=== PATIENT | male | born 1945 | race Caucasian/White ===

== ENCOUNTER 2016-10-25 18:11 | Inpatient (IN) | payer MEDICARE, BC ==
[~2016-10-25] VITALS: Ht 172.7 cm; Wt 110.2 kg
[2016-10-25 18:17] VITALS: BP 102/64; PULSE 99; RESP 24; TEMP 97.7; O2SAT 89
--- NOTE | 2016-10-25 18:25 | PD ---
Physical Exam Time Seen by Provider: 18:21 Narrative PT PRESENT FROM DR MADISON WITH ORDER FOR EVALUATION. HE HAS BEEN HAVING SOB AND WORSENING LOWER EXTREMITY EDEMA OVER LAST TWO WEEKS. PAIN IS ASSOCIATED W DEEP INSPIRATION. NO FEVER OR CHILLS. NO HISTORY OF BLOOD CLOTS. PT ALSO REPORTS RUQ WHERE HE HAD A LIVER BIOPSY 10/10/2016; PATHOLOGY PENDING. HX OF CVA, STATES HE TAKES MEDICATIONS Data Data Last Documented VS Vital Signs Date Time Temp Pulse Resp B/P Pulse Ox O2 Delivery O2 Flow Rate FiO2 10/25/16 18:49 99 22 94 Room Air 10/25/16 18:17 97.7 102/64 Orders Complete Blood Count With Diff (10/25/16 18:25) Comprehensive Metabolic Panel (10/25/16 18:25) B-Type Natriuretic Peptide (10/25/16 18:25) D-Dimer (10/25/16 18:25) Act Partial Throm Time (Ptt) (10/25/16 18:25) Prothrombin Time / Inr (Pt) (10/25/16 18:25) Magnesium (Mg) (10/25/16 18:25) Ckmb (Isoenzyme) Profile (10/25/16 18:25) Troponin I (10/25/16 18:25) Urinalysis - C+S If Indicated (10/25/16 18:25) Electrocardiogram (10/25/16 18:25) Chest, Single Ap (10/25/16 18:25) Ct Abd/Pel W Iv Contrast(Rout) (10/25/16 18:59) Ct Pulmonary Angiogram (10/25/16 18:59) Sodium Chlor 0.9% 1000 Ml Inj (Ns 1000 M (10/25/16 19:15) Us Leg Venous Doppler Bilat (10/25/16 19:08) Labs Laboratory Tests Test 10/25/16 19:05 White Blood Count 8.5 TH/MM3 Red Blood Count 3.98 MIL/MM3 Hemoglobin 12.6 GM/DL Hematocrit 37.7 % Mean Corpuscular Volume 94.5 FL Mean Corpuscular Hemoglobin 31.7 PG Mean Corpuscular Hemoglobin 33.5 % Concent Red Cell Distribution Width 15.8 % Platelet Count 261 TH/MM3 Mean Platelet Volume 7.6 FL Neutrophils (%) (Auto) 74.6 % Lymphocytes (%) (Auto) 14.1 % Monocytes (%) (Auto) 9.4 % Eosinophils (%) (Auto) 1.0 % Basophils (%) (Auto) 0.9 % Neutrophils # (Auto) 6.3 TH/MM3 Lymphocytes # (Auto) 1.2 TH/MM3 Monocytes # (Auto) 0.8 TH/MM3 Eosinophils # (Auto) 0.1 TH/MM3 Basophils # (Auto) 0.1 TH/MM3 CBC Comment DIFF FINAL Differential Comment MDM Medical Record Reviewed: Yes Supervised Visit with KASIE: No Narrative Course WORK UP INITIATED IN TRIAGE Condition: Stable Dulce Will Oct 25, 2016 18:25
[2016-10-25] MEDS ORDERED: CLOP75TA PO (19:01)
[2016-10-25] MEDS ORDERED: HYDR-3516 PO (19:01)
[2016-10-25] MEDS ORDERED: ASPI81TA81 (19:01)
[2016-10-25] MEDS ORDERED: LOSA50TA PO (19:01)
[2016-10-25] MEDS ORDERED: TRAM50TA PO (19:01)
[2016-10-25] MEDS ORDERED: SIMV40TA PO (19:01)
[2016-10-25] MEDS ORDERED: DIPH25CA PO (19:01)
[2016-10-25] MEDS ORDERED: TRAZ50TA12 PO (19:01)
--- NOTE | 2016-10-25 19:12 | PD ---
HPI Chief Complaint: Respiratory Symptoms Time Seen by Provider: 18:49 Travel History International Travel<30 days: No Contact w/Intl Traveler<30days: No Traveled to known affect area: No History of Present Illness HPI 70-year-old male complains of shortness of breath, lower extremity swelling, right upper quadrant abdominal pain and right low rib cage pain. Patient had liver biopsy October 10, 2015. Patient started having increasing shortness of breath, right upper quadrant abdominal pain and low extremity swelling since then. Patient states that the pain is sharp stabbing pain localized to right low rib cage right upper quadrant of the abdomen with radiation to right flank area. Patient denies any fever chills. Patient denies any coughing congestion. Patient denies any history of DVT or PE. Patient denies history diabetes or dyslipidemia. Patient is a nonsmoker. Patient has history hypertension. Patient states that he has poor appetite recently. Patient denies any nausea vomiting diarrhea. Patient states that he has poor appetite and some losing weight since July 2016. Patient was seen by personal physician in September and has CT scan abdomen pelvis as outpatient. CT scan shows a small mass in the liver. Patient with scheduled for liver biopsy October 10, 2015. Patient was referred to Dr. Pruitt, oncologist. Patient saw Dr. Pruitt for the first appointment today. Patient was referred to ED for evaluation. Patient has history of hypertension, status post CVA. Patient is on aspirin 81 mg daily and Plavix 75 mg daily. PFSH Past Medical History Cerebrovascular Accident: Yes Hypertension: Yes Tetanus Vaccination: Unknown Influenza Vaccination: Yes Past Surgical History Appendectomy: Yes Family History Family Myocardial Infarction: Yes Social History Alcohol Use: No Tobacco Use: Yes Substance Use: No Allergies-Medications (Allergen,Severity, Reaction): Coded Allergies: No Known Allergies (Unverified , 10/25/16) Reported Meds & Prescriptions Reported Meds & Active Scripts Active Reported Diphenhydramine (Diphenhydramine HCl) 25 Mg Cap 25 Mg PO HS PRN Clopidogrel (Clopidogrel Bisulfate) 75 Mg Tab 75 Mg PO DAILY Aspir-81 (Aspirin) 81 Mg Tabdr Hydrocodone-Acetaminophen 5-325 mg Tab 1 Tab PO Q8HR PRN Trazodone (Trazodone HCl) 50 Mg Tab 50 Mg PO HS Tramadol (Tramadol HCl) 50 Mg Tab 50 Mg PO Q4H PRN Simvastatin 40 Mg Tab 40 Mg PO HS Losartan (Losartan Potassium) 50 Mg Tab 50 Mg PO DAILY Review of Systems General / Constitutional: No: Fever Eyes: No: Visual changes HENT: No: Headaches Cardiovascular: No: Chest Pain or Discomfort Respiratory: Positive: Shortness of Breath Gastrointestinal: Positive: Abdominal Pain Genitourinary: No: Dysuria Musculoskeletal: Positive: Edema, No: Pain Skin: No Rash Neurologic: No: Weakness Psychiatric: No: Depression Endocrine: No: Polydipsia Hematologic/Lymphatic: No: Easy Bruising Physical Exam Narrative GENERAL: Well-nourished, well-developed patient. SKIN: Warm and dry. Jaundiced HEAD: Normocephalic. EYES: Mild bilateral scleral icterus. No injection or drainage. NECK: Supple, trachea midline. No JVD or lymphadenopathy. CARDIOVASCULAR: Regular rate and rhythm without murmurs, gallops, or rubs. RESPIRATORY: Breath sounds equal bilaterally. No accessory muscle use. GASTROINTESTINAL: Abdomen soft, nondistended. Patient has moderate tenderness on palpation right upper quadrant and right flank area. No rebound tenderness. No mass. MUSCULOSKELETAL: +2 pitting edema bilaterally lower extremity. No tenderness on the calf area. No redness no heat. BACK: Nontender without obvious deformity. No CVA tenderness. Neurologic exam normal. Data Data Last Documented VS Vital Signs Date Time Temp Pulse Resp B/P Pulse Ox O2 Delivery O2 Flow Rate FiO2 10/25/16 21:21 96 18 101/65 Room Air 10/25/16 19:54 95 10/25/16 18:17 97.7 Orders Complete Blood Count With Diff (10/25/16 18:25) Comprehensive Metabolic Panel (10/25/16 18:25) B-Type Natriuretic Peptide (10/25/16 18:25) D-Dimer (10/25/16 18:25) Act Partial Throm Time (Ptt) (10/25/16 18:25) Prothrombin Time / Inr (Pt) (10/25/16 18:25) Magnesium (Mg) (10/25/16 18:25) Ckmb (Isoenzyme) Profile (10/25/16 18:25) Troponin I (10/25/16 18:25) Urinalysis - C+S If Indicated (10/25/16 18:25) Electrocardiogram (10/25/16 18:25) Chest, Single Ap (10/25/16 18:25) Ct Abd/Pel W Iv Contrast(Rout) (10/25/16 18:59) Ct Pulmonary Angiogram (10/25/16 18:59) Sodium Chlor 0.9% 1000 Ml Inj (Ns 1000 M (10/25/16 19:15) Us Leg Venous Doppler Bilat (10/25/16 19:08) CKMB (10/25/16 19:05) CKMB% (10/25/16 19:05) Iodixanol 320 Inj (Rad Ct) (Visipaque 32 (10/25/16 20:39) Admit To Inpatient (10/25/16 ) Vital Signs (Adult) Q4H (10/25/16 21:54) Activity Oob With Assistance (10/25/16 21:54) ^ [employer]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 .CONTINUOUS (10/25/16 21:54) Diet Npo (10/26/16 Breakfast) Sodium Chloride 0.9% Flush (Ns Flush) (10/25/16 22:00) Sodium Chloride 0.9% Flush (Ns Flush) (10/26/16 09:00) Basic Metabolic Panel (Bmp) (10/26/16 06:00) Complete Blood Count With Diff (10/26/16 06:00) Scd Bilateral/Knee High [place].BID (10/25/16 21:54) Admit Order (Ed Use Only) (10/25/16 21:56) Naloxone Inj (Narcan Inj) (10/25/16 22:00) Inpatient Certification (10/25/16 ) Hgb & Hct (10/25/16 23:00) Hgb & Hct (10/26/16 03:00) Hgb & Hct (10/26/16 07:00) Hgb & Hct (10/26/16 11:00) Consult General Surgery (10/25/16 ) Sodium Chlor 0.9% 1000 Ml Inj (Ns 1000 M (10/25/16 22:00) Labs Laboratory Tests Test 10/25/16 19:05 White Blood Count 8.5 TH/MM3 Red Blood Count 3.98 MIL/MM3 Hemoglobin 12.6 GM/DL Hematocrit 37.7 % Mean Corpuscular Volume 94.5 FL Mean Corpuscular Hemoglobin 31.7 PG Mean Corpuscular Hemoglobin 33.5 % Concent Red Cell Distribution Width 15.8 % Platelet Count 261 TH/MM3 Mean Platelet Volume 7.6 FL Neutrophils (%) (Auto) 74.6 % Lymphocytes (%) (Auto) 14.1 % Monocytes (%) (Auto) 9.4 % Eosinophils (%) (Auto) 1.0 % Basophils (%) (Auto) 0.9 % Neutrophils # (Auto) 6.3 TH/MM3 Lymphocytes # (Auto) 1.2 TH/MM3 Monocytes # (Auto) 0.8 TH/MM3 Eosinophils # (Auto) 0.1 TH/MM3 Basophils # (Auto) 0.1 TH/MM3 CBC Comment DIFF FINAL Differential Comment Prothrombin Time 14.7 SEC Prothromb Time International 1.3 RATIO Ratio Activated Partial 26.5 SEC Thromboplast Time D-Dimer Quantitative (PE/DVT) 20.92 MG/L FEU Sodium Level 133 MEQ/L Potassium Level 4.4 MEQ/L Chloride Level 96 MEQ/L Carbon Dioxide Level 24.1 MEQ/L Anion Gap 13 MEQ/L Blood Urea Nitrogen 24 MG/DL Creatinine 1.99 MG/DL Estimat Glomerular Filtration 33 ML/MIN Rate Random Glucose 85 MG/DL Calcium Level 8.2 MG/DL Magnesium Level 2.0 MG/DL Total Bilirubin 2.1 MG/DL Aspartate Amino Transf 196 U/L (AST/SGOT) Alanine Aminotransferase 38 U/L (ALT/SGPT) Alkaline Phosphatase 332 U/L Total Creatine Kinase 112 U/L Creatine Kinase MB 0.8 NG/ML Troponin I LESS THAN 0.02 NG/ML B-Type Natriuretic Peptide 406 PG/ML Total Protein 6.1 GM/DL Albumin 2.7 GM/DL [facility] Medical Decision Making Medical Screen Exam Complete: Yes Emergency Medical Condition: Yes Interpretation(s) Last Impressions Lower Extremity Ultrasound 10/25/161907 Signed Impressions: Service Date/Time: Tuesday, October 25, 2016 19:20 - CONCLUSION: 1. No DVT in either lower extremity. 2. Small Eastman's cyst on the left. Nico Maya MD Chest X-Ray 10/25/161824 Signed Impressions: Service Date/Time: Tuesday, October 25, 2016 19:22 - CONCLUSION: Diminished lung volumes with clear lungs. Nico Maya MD 4 PM. CBC within normal limit. Sodium 133. BUN 24. Creatinine 1.99. GFR 33. Calcium 8.2. Total bili 2.1. AST 196. Apply phosphatase 332. Cardiac enzymes are normal. BNP 406. Albumin 2.7. INR 1.3. D-dimer 20.92. 21:17 PM. Last Impressions Lower Extremity Ultrasound 10/25/161907 Signed Impressions: Service Date/Time: Tuesday, October 25, 2016 19:20 - CONCLUSION: 1. No DVT in either lower extremity. 2. Small Eastman's cyst on the left. Nico Maya MD CT Angiography 10/25/161858 Signed Impressions: Service Date/Time: Sunday, October 25, 2016 20:35 - CONCLUSION: 1. No evidence for pulmonary embolism. 2. Minimal bibasilar patchy densities likely atelectasis. 3. Small right pleural effusion. 4. Enlarged heterogeneous liver containing multiple areas of low attenuation, concerning for internal hemorrhage/contusion. Nico Maya MD Abdomen/Pelvis CT 10/25/161858 Signed Impressions: Service Date/Time: Tuesday, October 25, 2016 20:35 - CONCLUSION: 1. Surgeon used liver containing multiple areas of low attenuation. Internal hemorrhage cannot be excluded given patient has had a recent liver biopsy. 2. Minimal fluid in the pelvis but no significant hemoperitoneum. 3. Diverticulosis without diverticulitis 4. Minimal bibasilar densities likely atelectasis. Small right pleural effusion. Nico Maya MD Chest X-Ray 10/25/161824 Signed Impressions: Service Date/Time: Tuesday, October 25, 2016 19:22 - CONCLUSION: Diminished lung volumes with clear lungs. Nico Maya MD Differential Diagnosis Differential diagnosis including PE, pneumothorax, hematoma, cholecystitis, cholangitis, colitis, nephrolithiasis, pyelonephritis, dependent edema, DVT, lymphedema. Narrative Course 70-year-old male with shortness of breath, right upper quadrant abdominal pain, bilateral lower extremity edema. Status post liver biopsy 2 weeks ago. I spoke with Dr. Trimble, rn or lpn strategic communications specialist. Advised angiogram to confirm bleeding. I spoke with interventional radiologist, advised repeat CT in the morning with IV contrast of abdomen pelvis and possible 3 phase liver scan. Diagnosis Primary Impression: Liver hemorrhage Additional Impression: Dependent edema Admitting Information Admitting Physician Requests: Admit Condition: Stable Darryl,Hung MD Oct 25, 2016 19:12
[2016-10-25] MEDS ORDERED: SODIUM CHLOR 0.9% 1000 ML INJ 1,000 ML IV ONE ×2 (19:15→22:00)
[2016-10-25 19:35] LABS: AUTOMATED NEUTROPHIL # 6.3 TH/MM3 (1.8-7.7); BASOPHIL # 0.1 TH/MM3 (0-0.2); BASOPHIL % 0.9 % (0.0-2.0); EOSINOPHIL # 0.1 TH/MM3 (0-0.4); HEMATOCRIT 37.7 % (39.0-51.0); HEMO FLAGS DIFF FINAL; LYMPH % 14.1 % (9.0-44.0); LYMPHOCYTE # 1.2 TH/MM3 (1.0-4.8); MEAN CELL VOLUME 94.5 FL (80.0-100.0); MEAN CORPUSCULAR HEMOGLOBIN 31.7 PG (27.0-34.0); MEAN CORPUSCULAR HGB CONC 33.5 % (32.0-36.0); MONO % 9.4 % (0.0-8.0); NEUT % 74.6 % (16.0-70.0); PLATELET COUNT 261 TH/MM3 (150-450); RED BLOOD COUNT 3.98 MIL/MM3 (4.50-5.90); RED CELL DISTRIBUTION WIDTH 15.8 % (11.6-17.2); WHITE BLOOD COUNT 8.5 TH/MM3 (4.0-11.0)
--- NOTE | 2016-10-25 19:35 | RADRPT ---
EXAM DATE/TIME: 10/25/2016 19:22 [facility] COMPARISON: No previous studies available for comparison. INDICATIONS : Short of breath for several months. MEDICAL HISTORY : Hypertension. SURGICAL HISTORY : None. ENCOUNTER: Initial ACUITY: 2 months PAIN SCORE: 2/10 LOCATION: Bilateral chest FINDINGS: A single view of the chest demonstrates diminished lung glands without evidence of mass, infiltrate o r effusion. The cardiomediastinal contours are unremarkable. Osseous structures are intact. CONCLUSION: Diminished lung volumes with clear lungs. Nico Maya MD on October 25, 2016 at 19:33 Board Certified Radiologist. This report was verified electronically.
[2016-10-25 19:53] LABS: ALT (GPT) 38 U/L (12-78); ANION GAP 13 MEQ/L (5-15); AST (GOT) 196 U/L (15-37); BICARBONATE 24.1 MEQ/L (21.0-32.0); BLOOD UREA NITROGEN 24 MG/DL (7-18); CHLORIDE 96 MEQ/L (98-107); GLOMERULAR FILTRATION RATE 33 ML/MIN (>89); POTASSIUM 4.4 MEQ/L (3.5-5.1); SODIUM (NA) 133 MEQ/L (136-145)
[2016-10-25 19:54] VITALS: BP 94/57; PULSE 89; RESP 18; O2SAT 95
--- NOTE | 2016-10-25 20:05 | RADRPT ---
EXAM DATE/TIME: 10/25/2016 19:20 [facility] COMPARISON: No previous studies available for comparison. INDICATIONS : Bilateral lower extremity edema. MEDICAL HISTORY : Hypertension. CVA. SURGICAL HISTORY : Appendectomy. ENCOUNTER: Initial ACUITY: 2 weeks PAIN SCORE: 0/10 LOCATION: Bilateral leg. TECHNIQUE: Venous ultrasound of the left and right leg was performed from the inguinal ligament to the proximal calf. Real-time, color Doppler and spectral tracing, compression and augmentation techniques were us ed. FINDINGS: RIGHT LEG: There is normal compressibility of the deep venous system from the inguinal region to the proximal ca lf. No echogenic clot is seen in the lumen of the common femoral, femoral, popliteal, and posterior tibial veins. There is a normal response of the venous system to proximal and distal augmentation an d respiration. LEFT LEG: There is normal compressibility of the deep venous system from the inguinal region to the proximal ca lf. No echogenic clot is seen in the lumen of the common femoral, femoral, popliteal, and posterior tibial veins. There is a normal response of the venous system to proximal and distal augmentation an d respiration. Small cystic structure measures 14 x 4 x 12 mm in the popliteal fossa. CONCLUSION: 1. No DVT in either lower extremity. 2. Small Eastman's cyst on the left. Nico Maya MD on October 25, 2016 at 20:02 Board Certified Radiologist. This report was verified electronically.
[2016-10-25 20:06] LABS: APTT (PATIENT) 26.5 SEC (24.3-30.1); INTERNATIONAL NORMALIZED RATIO 1.3 RATIO; PROTHROMBIN TIME - PATIENT 14.7 SEC (9.8-11.6)
[2016-10-25 20:12] LABS: ALKALINE PHOSPHATASE 332 U/L (45-117); CREATINE KINASE 112 U/L (39-308); TOTAL BILIRUBIN ADULT 2.1 MG/DL (0.2-1.0)
[2016-10-25 20:24] LABS: CKMB 0.8 NG/ML (0.5-3.6)
[2016-10-25] MEDS ORDERED: IODIXANOL 320 MG/ML 10 ML VIAL (for Rad CT) IV ONE (20:39)
--- NOTE | 2016-10-25 20:55 | RADRPT ---
EXAM DATE/TIME: 10/25/2016 20:35 [facility] COMPARISON: No previous studies available for comparison. INDICATIONS : Shortness of breath for and RUQ abdominal pain since liver biopsy 2 weeks ago. IV CONTRAST: 50 cc Visipaque (iodixanol) IV ; Cumulative dose for multiple exams. RADIATION DOSE: 23.22 CTDIvol (mGy) MEDICAL HISTORY : Hypertension. SURGICAL HISTORY : Appendectomy. ENCOUNTER: Initial ACUITY: 2 weeks PAIN SCALE: 4/10 LOCATION: chest TECHNIQUE: Volumetric scanning of the chest was performed using a pulmonary embolism protocol MIP images were re constructed. Using automated exposure control and adjustment of the mA and/or kV according to patien t size, radiation dose was kept as low as reasonably achievable to obtain optimal diagnostic quality images. FINDINGS: PULMONARY ARTERIES: No filling defects are seen in the pulmonary arteries through the segmental level. LUNGS: Minimal patchy densities in the lower lobes.. No concerning pulmonary nodule is visualized. PLEURAE: Small right pleural effusion. MEDIASTINUM: There is good visualization of the great vessels of the middle mediastinum. No evidence of mediastin al or hilar adenopathy/mass. MUSCULOSKELETAL: Within normal limits for patient age. MISCELLANEOUS: The visualized upper abdominal organs demonstrate heterogeneous liver containing multiple areas of lo w density.. CONCLUSION: 1. No evidence for pulmonary embolism. 2. Minimal bibasilar patchy densities likely atelectasis. 3. Small right pleural effusion. 4. Enlarged heterogeneous liver containing multiple areas of low attenuation, concerning for internal hemorrhage/contusion. Nico Maya MD on October 25, 2016 at 20:52 Board Certified Radiologist. This report was verified electronically.
--- NOTE | 2016-10-25 21:02 | RADRPT ---
EXAM DATE/TIME: 10/25/2016 20:35 [facility] COMPARISON: No previous studies available for comparison. INDICATIONS : Shortness of breath for and RUQ abdominal pain since liver biopsy 2 weeks ago. IV CONTRAST: 50 cc Visipaque (iodixanol) IV ; Cumulative dose for multiple exams. ORAL CONTRAST: No oral contrast ingested. RADIATION DOSE: 21.07 CTDIvol (mGy) MEDICAL HISTORY : Hypertension. SURGICAL HISTORY : Appendectomy. ENCOUNTER: Initial ACUITY: 2 weeks PAIN SCALE: 6/10 LOCATION: Right upper quadrant Abdomen/pelvis TECHNIQUE: Volumetric scanning of the abdomen and pelvis was performed. Using automated exposure control and ad justment of the mA and/or kV according to patient size, radiation dose was kept as low as reasonably achievable to obtain optimal diagnostic quality images. FINDINGS: LOWER LUNGS: Minimal bibasilar densities and small right pleural effusion. LIVER: Heterogeneous liver containing multiple areas of low density.. There is no dilation of the biliary t ree. No calcified gallstones. SPLEEN: Normal size without lesion. PANCREAS: Within normal limits. KIDNEYS: Normal in size and shape. There is no mass, stone or hydronephrosis. ADRENAL GLANDS: Within normal limits. VASCULAR: There is no aortic aneurysm. BOWEL/MESENTERY: Diverticulosis without diverticulitis. There is no free intraperitoneal air or fluid. ABDOMINAL WALL: Within normal limits. RETROPERITONEUM: There is no lymphadenopathy. BLADDER: No wall thickening or mass. REPRODUCTIVE: Minimal fluid in the pelvis INGUINAL: There is no lymphadenopathy or hernia. MUSCULOSKELETAL: Noé changes lumbar spine. CONCLUSION: 1. Surgeon used liver containing multiple areas of low attenuation. Internal hemorrhage cannot be exc luded given patient has had a recent liver biopsy. 2. Minimal fluid in the pelvis but no significant hemoperitoneum. 3. Diverticulosis without diverticulitis 4. Minimal bibasilar densities likely atelectasis. Small right pleural effusion. Nico Maya MD on October 25, 2016 at 20:58 Board Certified Radiologist. This report was verified electronically.
[2016-10-25 21:21] VITALS: BP 101/65; PULSE 96; RESP 18
[2016-10-25] MEDS ORDERED: SODIUM CHLORIDE 0.9% FLUSH 5 ML FLUSH FLUSH PRN (22:00)
[2016-10-25] MEDS ORDERED: NALOXONE HCL 0.4 MG/ML AMP IV PRN (22:00)
[2016-10-25 22:23] VITALS: BP 93/59; PULSE 97; RESP 18; O2SAT 95
[2016-10-25 23:17] LABS: HEMATOCRIT 33.6 % (39.0-51.0); REVIEW FLAG FINAL
--- NOTE | 2016-10-25 23:37 | HHI.HP ---
[facility] Service [facility] Primary Care Physician Non-Staff Admission Diagnosis liver hemorrhage. Dependent edema. Diagnoses: Chief Complaint: Abdominal pain Travel History International Travel<30 Days: No Contact w/Intl Traveler <30 Da: No Traveled to Known Affected Are: No History of Present Illness History from patient, ER physician condition, and review of medical records. Patient reported that he has had liver biopsy done on October 10, 2016. He stated since then, he was having this right upper quadrant abdominal pain. He denies any nausea or vomiting. Denies any diarrhea or constipation. Denies seeing blood in his stool or in his urine. Denies any fever. Denies any increase abdominal girth. He states that his abdomen always having quite bake. Patient reports of bilateral lower extremity edema. However he also states that this edema has been there for about a year or so at least. Patient then went to his oncologist for appointments and when he was complaining about this abdominal pain, oncologist had sent him to the hospital for further evaluation. In the emergency room, patient's imaging studies reviewed possible hemorrhage within the liver capsule. Patient however remains hemodynamically stable. His hemoglobin hematocrit is also stable. Review of Systems Constitutional: DENIES: Fatigue, Fever, Weight gain, Weight loss, Chills, Dizziness Respiratory: DENIES: Apneas, Cough, Wheezing, Hemoptysis, Sputum production, Shortness of breath Cardiovascular: COMPLAINS OF: Dyspnea on Exertion, Lower Extremity Edema, DENIES: Chest pain, Palpitations, Syncope, PND Gastrointestinal: COMPLAINS OF: Abdominal pain, Nausea, DENIES: Black stools, Bloody stools, Constipation, Diarrhea, Vomiting Genitourinary: COMPLAINS OF: Nocturia, DENIES: Urinary frequency, Urinary incontinence, Urgency, Hematuria, Dysuria Past Family Social History Past Medical History Liver cancer Hypertension Chronic bilateral lower extremity edema Past Surgical History Liver biopsyon September 24, 2016, and October 10, 2016 Appendectomy Reported Medications Patient's medications listed in EMRreviewed. Allergies: Coded Allergies: No Known Allergies (Unverified , 10/25/16) Family History Denies family history of any medical conditions. Social History Denies smoking/alcohol abuse/drug abuse. Physical Exam Vital Signs Vital Signs Date Time Temp Pulse Resp B/P Pulse Ox O2 Delivery O2 Flow Rate FiO2 10/25/16 22:23 97 18 93/59 95 Room Air 10/25/16 21:21 96 18 101/65 Room Air 10/25/16 19:54 89 18 94/57 95 Room Air 10/25/16 18:49 99 22 94 Room Air 10/25/16 18:17 97.7 99 24 102/64 89 Room Air Physical Exam GENERAL: This is a well-nourished, well-developed patient, in no apparent distress. SKIN: No rashes, ecchymoses or lesions. Cool and dry. HEAD: Atraumatic. Normocephalic. No temporal or scalp tenderness. EYES: No scleral icterus. No injection or drainage. ENT: Nose without bleeding, purulent drainage or septal hematoma. Airway patent. NECK: Trachea midline. No JVD or lymphadenopathy. Supple, nontender, no meningeal signs. CARDIOVASCULAR: Regular rate and rhythm without murmurs, gallops, or rubs. RESPIRATORY: Clear to auscultation. Breath sounds equal bilaterally. No wheezes , rales, or rhonchi. GASTROINTESTINAL: Abdomen soft, tenderness at the right upper quadrant, nondistended. No guarding. MUSCULOSKELETAL: Extremities without clubbing, cyanosis, or edema. No calf tenderness. NEUROLOGICAL: Awake and alert Motor and sensory grossly within normal limits. Normal speech. Laboratory Laboratory Tests Test 10/25/16 10/25/16 19:05 23:05 White Blood Count 8.5 Red Blood Count 3.98 Hemoglobin 12.6 11.4 Hematocrit 37.7 33.6 Mean Corpuscular Volume 94.5 Mean Corpuscular Hemoglobin 31.7 Mean Corpuscular Hemoglobin 33.5 Concent Red Cell Distribution Width 15.8 Platelet Count 261 Mean Platelet Volume 7.6 Neutrophils (%) (Auto) 74.6 Lymphocytes (%) (Auto) 14.1 Monocytes (%) (Auto) 9.4 Eosinophils (%) (Auto) 1.0 Basophils (%) (Auto) 0.9 Neutrophils # (Auto) 6.3 Lymphocytes # (Auto) 1.2 Monocytes # (Auto) 0.8 Eosinophils # (Auto) 0.1 Basophils # (Auto) 0.1 CBC Comment DIFF FINAL Differential Comment Prothrombin Time 14.7 Prothromb Time International 1.3 Ratio Activated Partial 26.5 Thromboplast Time D-Dimer Quantitative (PE/DVT) 20.92 Sodium Level 133 Potassium Level 4.4 Chloride Level 96 Carbon Dioxide Level 24.1 Anion Gap 13 Blood Urea Nitrogen 24 Creatinine 1.99 Estimat Glomerular Filtration 33 Rate Random Glucose 85 Calcium Level 8.2 Magnesium Level 2.0 Total Bilirubin 2.1 Aspartate Amino Transf 196 (AST/SGOT) Alanine Aminotransferase 38 (ALT/SGPT) Alkaline Phosphatase 332 Total Creatine Kinase 112 Creatine Kinase MB 0.8 Troponin I LESS THAN 0.02 B-Type Natriuretic Peptide 406 Total Protein 6.1 Albumin 2.7 Result Diagram: 10/25/16230410/25/161904 Imaging Last 48 hours Impressions Lower Extremity Ultrasound 10/25/161907 Signed Impressions: Service Date/Time: Tuesday, October 25, 2016 19:20 - CONCLUSION: 1. No DVT in either lower extremity. 2. Small Eastman's cyst on the left. Nioc Maya MD CT Angiography 10/25/161858 Signed Impressions: Service Date/Time: Tuesday, October 25, 2016 20:35 - CONCLUSION: 1. No evidence for pulmonary embolism. 2. Minimal bibasilar patchy densities likely atelectasis. 3. Small right pleural effusion. 4. Enlarged heterogeneous liver containing multiple areas of low attenuation, concerning for internal hemorrhage/contusion. Nico Maya MD Abdomen/Pelvis CT 10/25/161858 Signed Impressions: Service Date/Time: Tuesday, October 25, 2016 20:35 - CONCLUSION: 1. Surgeon used liver containing multiple areas of low attenuation. Internal hemorrhage cannot be excluded given patient has had a recent liver biopsy. 2. Minimal fluid in the pelvis but no significant hemoperitoneum. 3. Diverticulosis without diverticulitis 4. Minimal bibasilar densities likely atelectasis. Small right pleural effusion. Nico Maya MD Chest X-Ray 10/25/161824 Signed Impressions: Service Date/Time: Tuesday, October 25, 2016 19:22 - CONCLUSION: Diminished lung volumes with clear lungs. Nico Maya MD Assessment and Plan Problem List: (1) Liver hemorrhage ICD Code: K76.89 Status: Acute (2) Dependent edema ICD Code: R60.9 Status: Acute Assessment and Plan Impression: Abdominal pain status post liver biopsy Possible intracapsular liver hemorrhage Bilateral lower extremity swelling/edemachronic. DVT study negative. Liver cancer Hypertension Chronic bilateral lower extremity edema Plan: Patient's CT abdomen and pelvis reveals questionable hemorrhage within the liver. His case was discussed with interventional radiologist on-call by ER physician. Since patient received IV contrast for this CT abdomen, interventional radiologist has advised for possible liver scans in the morning and only if this shows something then to pursue with angiogram to minimize contrast-induced nephropathy. Patient is also hemodynamically stable. The pain is well controlled. His case was also discussed with general surgeon insurance verification specialist by ER physician. Advised to monitor patient in ICU with serial hemoglobin hematocrit. Hold blood thinners. Hemoglobin hematocrit every 4 hours. Pain control. Hold antihypertensives. Nothing by mouth in case patient needs emergent embolization. DVT prophylaxiswith SCD. Discussed Condition With Patient, ER physician, patient's nurse Physician Certification 2 Midnight Certification Type: Admission for Inpatient Services Order for Inpatient Services The services are ordered in accordance with Medicare regulations or non- Medicare payer requirements, as applicable. In the case of services not specified as inpatient-only, they are appropriately provided as inpatient services in accordance with the 2-midnight benchmark. Estimated LOS (days): 2 days is the estimated time the patient will need to remain in the hospital, assuming treatment plan goals are met and no additional complications. Post-Hospital Plan: Home Alicia Everett MD Oct 25, 2016 23:37
[2016-10-26] VITALS (13 sets, daily range): BP systolic 93–114; BP diastolic 50–59; PULSE 71–93; RESP 16–20; TEMP 97.7–98.3; O2SAT 92–94
[2016-10-26 03:32] LABS: HEMATOCRIT 35.1 % (39.0-51.0); REVIEW FLAG FINAL
[2016-10-26 03:50] LABS: BICARBONATE 23.9 MEQ/L (21.0-32.0); POTASSIUM 4.7 MEQ/L (3.5-5.1)
[2016-10-26] MEDS ORDERED: CHLORHEXIDINE GLUCONATE 2 % 1 PACK (2 CLOTHS)(extra cloths) TOP PRN (04:15)
[2016-10-26 07:21] LABS: AUTOMATED NEUTROPHIL # 5.9 TH/MM3 (1.8-7.7); BASOPHIL % 0.6 % (0.0-2.0); EOSINOPHIL # 0.1 TH/MM3 (0-0.4); EOSINOPHIL % 0.9 % (0.0-4.0); HEMATOCRIT 34.7 % (39.0-51.0); HEMO FLAGS DIFF FINAL; LYMPH % 13.4 % (9.0-44.0); MEAN CELL VOLUME 94.1 FL (80.0-100.0); MEAN CORPUSCULAR HEMOGLOBIN 31.9 PG (27.0-34.0); MEAN CORPUSCULAR HGB CONC 33.9 % (32.0-36.0); MONO % 9.3 % (0.0-8.0); NEUT % 75.8 % (16.0-70.0); PLATELET COUNT 208 TH/MM3 (150-450); RED BLOOD COUNT 3.69 MIL/MM3 (4.50-5.90); RED CELL DISTRIBUTION WIDTH 15.9 % (11.6-17.2); WHITE BLOOD COUNT 7.8 TH/MM3 (4.0-11.0)
--- NOTE | 2016-10-26 09:41 | HHI.PR ---
Subjective Remarks Follow-up possible liver Hemorrhage 10/26/16-patient seen and examined; reports some improvement of right upper quadrant pain, no bleeding reported. Case discussed with Dr. Anguiano, general surgeon. Patient currently nothing by mouth Objective Vitals Vital Signs Date Time Temp Pulse Resp B/P Pulse Ox O2 Delivery O2 Flow Rate FiO2 10/26/16 06:00 86 10/26/16 04:00 86 10/26/16 03:13 98.0 93 20 112/55 92 10/26/16 03:00 93 10/26/16 02:13 88 16 105/57 94 Room Air 10/25/16 22:23 97 18 93/59 95 Room Air 10/25/16 21:21 96 18 101/65 Room Air 10/25/16 19:54 89 18 94/57 95 Room Air 10/25/16 18:49 99 22 94 Room Air 10/25/16 18:17 97.7 99 24 102/64 89 Room Air I/O 10/25/16 10/25/16 10/25/16 10/26/16 10/26/16 10/26/16 07:00 15:00 23:00 07:00 15:00 23:00 Intake Total 0 ml Output Total 0 ml Balance 0 ml Intake Oral 0 ml Output Urine Total 0 ml Stool Total 0 ml Result Diagram: 10/26/16 0647 10/26/16 0322 Imaging Last Impressions Lower Extremity Ultrasound 10/25/161907 Signed Impressions: Service Date/Time: Tuesday, October 25, 2016 19:20 - CONCLUSION: 1. No DVT in either lower extremity. 2. Small Eastman's cyst on the left. Nico Maya MD CT Angiography 10/25/161858 Signed Impressions: Service Date/Time: Tuesday, October 25, 2016 20:35 - CONCLUSION: 1. No evidence for pulmonary embolism. 2. Minimal bibasilar patchy densities likely atelectasis. 3. Small right pleural effusion. 4. Enlarged heterogeneous liver containing multiple areas of low attenuation, concerning for internal hemorrhage/contusion. Nico Maya MD Abdomen/Pelvis CT 10/25/161858 Signed Impressions: Service Date/Time: Tuesday, October 25, 2016 20:35 - CONCLUSION: 1. Surgeon used liver containing multiple areas of low attenuation. Internal hemorrhage cannot be excluded given patient has had a recent liver biopsy. 2. Minimal fluid in the pelvis but no significant hemoperitoneum. 3. Diverticulosis without diverticulitis 4. Minimal bibasilar densities likely atelectasis. Small right pleural effusion. Nico Maya MD Chest X-Ray 10/25/16 1772 Signed Impressions: Service Date/Time: Tuesday, October 25, 2016 19:22 - CONCLUSION: Diminished lung volumes with clear lungs. Nico Maya MD Objective Remarks GENERAL: NAD SKIN: Warm and dry. HEAD: Normocephalic. EYES: No scleral icterus. No injection or drainage. NECK: Supple, trachea midline. No JVD or lymphadenopathy. CARDIOVASCULAR: Regular rate and rhythm without murmurs, gallops, or rubs. RESPIRATORY: Breath sounds equal bilaterally. No accessory muscle use. GASTROINTESTINAL: Abdomen soft, mildly tender RUQ, nondistended. +BS MUSCULOSKELETAL: No cyanosis, or edema. BACK: Nontender without obvious deformity. No CVA tenderness. A/P Problem List: (1) Liver hemorrhage ICD Code: K76.89 Status: Acute (2) Dependent edema ICD Code: R60.9 Status: Acute Assessment and Plan 70 yrs old man with 1-Abdominal pain status post liver biopsy/Possible intracapsular liver hemorrhage?:CT abdomen and pelvis reveals questionable hemorrhage within the liver. Awaiting call from interventional radiology further studies. His discussed this morning with general surgeon Dr. Anguiano. Continue to monitor in ICU. H&H monitoring every 4 if stable with gentle every 12 on 10/27/16. Pain management accordingly; continue with nothing by mouth 2-Bilateral lower extremity swelling/edemachronic. DVT study negative. 3-Liver cancer 4-Hypertension: Continue to hold oral hypertensive agents DVT prophylaxiswith SCD. Nico Renee MD Oct 26, 2016 09:41
[2016-10-26] MEDS ORDERED: NALOXONE HCL 0.4 MG/ML AMP IV PRN (09:45)
[2016-10-26] MEDS ORDERED: ONDANSETRON HCL 4 MG/2 ML VIAL IV PRN (10:00)
[2016-10-26] MEDS ORDERED: RESP: ALBUTEROL 2.5 MG/IPRATROPIUM 0.5 MG NEB (PRN) NEB (10:00)
[2016-10-26] MEDS ORDERED: ACETAMINOPHEN 325 MG TAB PO PRN ×2 (10:00)
[2016-10-26] MEDS ORDERED: KETOROLAC TROMETHAMINE 30 MG/ML (IVP) VIAL IVP PRN (10:00)
--- NOTE | 2016-10-26 10:21 | RADRPT ---
EXAM DATE/TIME: 10/26/2016 09:49 [facility] COMPARISON: CT ABDOMEN & PELVIS W CONTRAST, October 25, 2016, 20:35. INDICATIONS : Follow up for possible internal hemorrhage following liver biopsy. ORAL CONTRAST: No oral contrast ingested. RADIATION DOSE: 16.95 CTDIvol (mGy) MEDICAL HISTORY : Stroke. Hypertension. SURGICAL HISTORY : Appendectomy. ENCOUNTER: Initial ACUITY: 1 day PAIN SCALE: 5/10 LOCATION: Right upper quadrant TECHNIQUE: Volumetric scanning of the abdomen and pelvis was performed. Using automated exposure control and ad justment of the mA and/or kV according to patient size, radiation dose was kept as low as reasonably achievable to obtain optimal diagnostic quality images. FINDINGS: LOWER LUNGS: Right lower lung atelectasis with a tiny right effusion. Left lung bases clear. No significant change s. LIVER: The liver remains enlarged with abnormal scattered areas of decreased density throughout the entire l iver. This is unchanged compared to the prior study. No subcapsular hematoma is demonstrated. No evid ence of any significant free fluid is seen in the right paracolic gutter. No dilated biliary ducts. SPLEEN: Normal size without lesion. PANCREAS: Within normal limits. KIDNEYS: Normal in size and shape. There is no mass, stone, or hydronephrosis. ADRENAL GLANDS: Within normal limits. VASCULAR: There is no aortic aneurysm. Atherosclerotic changes. BOWEL/MESENTERY: The stomach, small bowel, and colon demonstrate no acute abnormality. There is no free intraperitone al air. There is a trace of fluid in the pelvis. There is diverticulosis of the sigmoid colon. No inf lammatory changes. ABDOMINAL WALL: Within normal limits. RETROPERITONEUM: There is no lymphadenopathy. BLADDER: No wall thickening or mass. There is contrast in the urinary bladder. REPRODUCTIVE: Within normal limits. INGUINAL: There is no lymphadenopathy or hernia. MUSCULOSKELETAL: Diffuse primary degenerative changes without significant change compared to the prior study. CONCLUSION: 1. Stable CT scan of the abdomen and pelvis compared to the prior examination. There is no evidence o f a subcapsular hematoma or significant free fluid in the right paracolic gutter. There is a trace of fluid in the pelvis which is about the same or mildly improved compared to the prior study. 2. Diverticulosis of the sigmoid colon without inflammatory changes. 3. Right lower lung atelectasis without significant change. Willi Terry MD on October 26, 2016 at 10:09 Board Certified Radiologist. This report was verified electronically.
--- NOTE | 2016-10-26 18:31 | MB ---
cc: JOLENE BENJAMIN M.D. DATE OF CONSULTATION 10/25/2016 REASON FOR CONSULTATION Liver hemorrhage versus mass. HISTORY OF PRESENT ILLNESS The patient is a 70-year-old male who was seen at [facility] and underwent biopsy of the liver on October 10. The patient reports that since that time he has had right upper quadrant and subcostal pain. He denies any nausea or vomiting. He reports having about a 20-30 pound weight loss over the last 2-3 months. He denies any fever, nausea, vomiting or change in bowel habits. PAST MEDICAL HISTORY Peripheral edema in both lower extremities. REVIEW OF SYSTEMS The patient reports weight loss. He denies any cough. RESPIRATORY: No hemoptysis or sputum production CARDIOVASCULAR: He has some dyspnea on exertion. Denies chest pain. GI: He denies any abdominal pain or nausea or change in bowel habits. : He complains of some nocturia GENERAL: He reports some loss of energy. FAMILY HISTORY History of liver cancer and hypertension, chronic bilateral lower extremity edema. PAST SURGICAL HISTORY Appendectomy. The patient had and open procedure in the distant past. ALLERGIES The patient has no known allergies. SOCIAL HISTORY Denies smoking or alcohol use. PHYSICAL EXAMINATION GENERAL: An obese patient in no acute distress. VITAL SIGNS: BP 114/59, pulse 92, respirations 18, 92% sat on room air. The patient had one blood pressure of 93/59 at 2200 hours the day before. CHEST: Clear to auscultation. CARDIAC: Regular rate and rhythm. ABDOMEN: Soft with some tenderness in the right upper quadrant and right lateral abdominal wall. There is no abdominal wall ecchymosis. There are no hernias noted. EXTREMITIES: Pulses are present with significant bilateral pedal edema. LABORATORY DATA WBCs of 7.8 with hemoglobin 11.8, hematocrit 34.7, platelet count 208,000. Coagulation demonstrates INR of 1.3. Chemistries demonstrate BUN 25, creatinine 1.7, potassium is 4.7, total bilirubin is 2.1, AST 196, ALT 38, alkaline phosphatase 332. The total protein is 6.1, albumin is 2.7, both of which are low. IMAGING STUDIES On October 25, 2016 demonstrates liver enlargement with abnormal areas of decreased density throughout the entire liver. No subcapsular hematoma was demonstrated. ASSESSMENT Intraparenchymal liver changes with possibility of hemorrhage versus tumor. Await original pathology from [facility] as this will help elucidate the etiology. The patient should stay in intensive care today; if hemoglobin is stable throughout the day he could be transferred to the floor. Would not draw labs every four hours and would only do this twice today and then daily unless he becomes hemodynamically unstable. Thank you for asking us to see this individual; we will follow with you. MD JOE Morrison/ /5:01 PM /6:22 PM RYAN
[2016-10-26 19:28] LABS: HEMATOCRIT 36.2 % (39.0-51.0); REVIEW FLAG FINAL
[2016-10-26] MEDS: PRAVASTATIN SOD 40 MG TAB PO SCH (19:41)
[2016-10-26] MEDS: SODIUM CHLORIDE 0.9% FLUSH 5 ML FLUSH FLUSH SCH (19:41)
--- NOTE | 2016-10-26 21:08 | EKG ---
Date Performed: 10/25/2016 Time Performed: 19:27:43 PTAGE: 70 years EKG: Sinus rhythm NONSPECIFIC T-WAVE ABNORMALITY BORDERLINE ECG NO PREVIOUS TRACING DOCTOR: Jean Pierre Lan Interpretating Date/Time 10/26/2016 21:03:41
[2016-10-27] VITALS (11 sets, daily range): BP systolic 82–132; BP diastolic 47–71; PULSE 70–95; RESP 15–20; TEMP 96.5–98.5; O2SAT 88–96
[2016-10-27] MEDS ORDERED: SODIUM CHLORID 0.9% 500 ML INJ 500 ML IV ONE (01:45)
[2016-10-27] MEDS: CHLORHEXIDINE GLUCONATE 2 % 1 PACK (2 CLOTHS)(taper/protocol) TOP SCH (04:00)
[2016-10-27 07:09] LABS: HEMATOCRIT 32.1 % (39.0-51.0); REVIEW FLAG FINAL
--- NOTE | 2016-10-27 08:44 | MB ---
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 CHIEF COMPLAINT Abdominal pain. HISTORY OF PRESENT ILLNESS Mr. Wilson is a 70-year-old male who was recently diagnosed with stage IV adenocarcinoma. He presented to my clinic on October 25, 2016 in [place] for initial consultation. The patient was diagnosed with adenocarcinoma of the CT-guided biopsy of the liver. The patient has recently moved from [place] to the [facility]. He complained of dyspnea and chest discomfort. He underwent a CTA sometime in August. No pulmonary embolism was found, but unfortunately there were liver lesions seen on the CT scan. He underwent a CT-guided biopsy of the liver mass at [facility] in [place]. Biopsy confirmed adenocarcinoma and based on the immunohistochemistry it was thought to be of GI primary. He has not had any additional cancer staging workup. He has not had a colonoscopy or endoscopy. Upon his presentation in the clinic yesterday, the patient was in significant amount of abdominal pain. He also complained of dyspnea and pleuritic chest pain. He also had bilateral lower extremity edema. The patient was sent to the emergency department to rule out underlying pulmonary embolism as well as to assess for any acute abnormality in his abdomen. There was a concern for internal bleeding or hematoma from the recent liver biopsy. The patient was admitted to the hospital. On admission, he had a CT angiogram which did not show any evidence of pulmonary embolism. An enlarged heterogeneous liver containing multiple areas of low-attenuation was seen. He also had an abdominal CT scan which was concerning for possible internal hemorrhage on the areas of the liver biopsy. There was no fluid or hemoperitoneum in the pelvic area. The patient also had lower extremity Doppler which did not show any DVT in bilateral extremities. The patient was evaluated by surgery. Currently, he feels somewhat better compared to yesterday. He has some abdominal pain. He is not as dyspneic. He still has bilateral lower extremity edema. REVIEW OF SYSTEMS Comprehensive 14-point review of systems was completed which is negative except as described in the HPI. PAST MEDICAL HISTORY 1. Adenocarcinoma of GI primary 2. Hypertension. PAST SURGICAL HISTORY 1. History of liver biopsy in September 2016 2. On October 10, 2016 history of appendectomy. MEDICATIONS Medications were reviewed in the EMR ALLERGIES He does not have any known drug allergies. FAMILY HISTORY Family history was reviewed and is noncontributory to this admission. SOCIAL HISTORY He is . 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 He is an ex-smoker but quit many years ago. He rarely drinks alcohol. No illicit drug use. PHYSICAL EXAMINATION VITAL SIGNS: Blood pressure is 114/59, pulse is in the 80s, temperature is 98.2, respiratory rate is 18, O2 sats are 92% on room air. GENERAL: Well-developed, well-nourished male in no apparent distress. HEENT: Pupils are equal, round, reactive to light. EOMI. No oral thrush. No oral lesions. NECK: Supple. No JVD, no bruits. No lymphadenopathy. CHEST: Bilateral scattered rhonchi. Diminished breath sounds at the bases. CARDIAC: S1-S2 regular rate and rhythm. No murmur, gallops or rubs. ABDOMEN: Soft, distended due to obesity. There is exquisite tenderness in the right upper quadrant below the costophrenic margin. Bowel sounds are present. EXTREMITIES: 2+ bilateral lower extremity edema. She has 2+ pulses. NEUROLOGIC: No focal deficits. PSYCHIATRIC: Mood and affect are appropriate. LABORATORY DATA WBC 7.8, hemoglobin is 11.8, MCV is 94, platelet count is 208. Serum chemistries show sodium of 139, potassium 4.7, CO2 23.9, BUN is 25, creatinine is 1.7, magnesium is two, total bilirubin is 2.1, AST is 196, ALT 38, alk phos is 332. CK is 112, total protein is six, albumin is 2.7. BNP is 400. IMAGING STUDIES Was reviewed in the EMR. CT scans were reviewed. Lower extremity Doppler ultrasound was reviewed. Chest x-ray was reviewed. ASSESSMENT/PLAN This is a 70-year-old male with a remote history of smoking, hypertension and hyperlipidemia who was recently diagnosed with adenocarcinoma of likely GI origin who was admitted to the hospital with chest pain, abdominal pain and bilateral lower extremity edema. 1. Metastatic adenocarcinoma of likely GI origin based on the pathology report. This was based on a CT-guided biopsy of the liver lesion. He has not been completely staged. He has not had a colonoscopy or endoscopy. We need to establish whether he has a primary lesion in his GI tract. We will consult gastroenterology for an EGD and colonoscopy. I will proceed with obtaining CEA levels. Would also check CA 19-9. This could be at pancreatic or biliary cancer. I have reviewed the CT scan. There is no discrete lesion in the pancreas or the biliary tract bed. 2. Dyspnea and chest discomfort. CTA was negative for pulmonary embolism. His BNP is elevated. We will obtain a 2-D echocardiogram. 3. Abdominal pain. He has had a biopsy. He has had significant pain in this area. CT scans do not show any overt bleeding or hematoma. Surgery has been following the patient. We will continue to monitor. 4. Bilateral lower extremity edema. Doppler ultrasound does not show any DVT. BNP is elevated. We will obtain a 2-D echocardiogram to assess his heart function. 5. We will need to place a chemotherapy port in this patient. I had a long discussion with the patient and the family. He has stage IV cancer which will require systemic chemotherapy. He would like to proceed with this treatment. We will arrange to have this done outpatient. We may also need to have a PET CT scan, but this will be done on an outpatient basis. During this hospital admission, we will try to get a colonoscopy, EGD and a port placement prior to his discharge. Thank you for allowing me to participate in the care of this patient. I will continue to follow this patient along. MD LUCIA Brown/ /7:34 PM /8:43 AM
[2016-10-27] MEDS: SODIUM CHLORIDE 0.9% FLUSH 5 ML FLUSH FLUSH SCH ×2 (09:00→22:48)
--- NOTE | 2016-10-27 10:50 | PD.CONS ---
HPI History of Present Illness This is a 70 year old male patient who came to the ER for shortness of breath with lower extremity swelling and right upper quadrant pain. She was recently hospitalized at [facility] and underwent a liver biopsy (10/10/16) after he was found to have a liver mass. His pathology came back as adenocarcinoma. CT scan of abdomen and pelvis with IV contrast (10/25/16) revealed liver containing multiple areas of low attenuation. Internal hemorrhage cannot be excluded given patient has had a history of recent liver biopsy, minimal fluid in the pelvis but no significant hemoperitoneum, diverticulosis without diverticulitis, minimal by basilar densities likely atelectasis, small right pleural effusion. He then had a repeat CT scan without IV contrast (10/26/16) and this revealed a stable CT scan of the abdomen and pelvis compared to the prior examination. There is no evidence of a subcapsular hematoma or significant free fluid in the right or colic gutter. There is a trace amount of fluid in the pelvis which is about the same or mildly improved compared to the prior study. Diverticulosis of the sigmoid colon without inflammatory changes. Right lower lung atelectasis without significant change. His H&H's have remained stable. Of note he does have mild hypotension although this is remained stable. The patient has been evaluated by oncology and surgery and he is scheduled to have a port placed by interventional radiology on Sunday. GI has been consulted for endoscopic evaluation. The patient reports that he had a colonoscopy in [place] about 3-4 years ago when he had several polyps removed at that time. He does report that his mother is from either colon or ovarian cancer at age 69. He has had an abnormal weight loss of 40 pounds since July. However he denies any other GI symptoms such as nausea, vomiting, abdominal pain, bowel changes, constipation, diarrhea, melena, or hematochezia. He does report that for several weeks she's been having shortness of breath that is worse with exertion and bilateral lower extremity swelling. This seems to be worse if he is on his feet and does improve with rest and elevating his feet. Of note he has a history of a stroke and takes Plavix. He last had this on October 24. ( Stephanie Root) [facility] Past Medical History Recently dx adenocarcinoma by liver bx Hypertension Chronic bilateral lower extremity edema Stroke, on Plavix Past Surgical History Liver biopsyon September 24, 2016, and October 10, 2016 Appendectomy Colonoscopy (Stephanie Root) Coded Allergies: No Known Allergies (Unverified , 10/25/16) Medications Allergies Coded Allergies Type Severity Reaction Last Updated Verified No Known Allergies 10/25/16 No Active Scripts Medications Dose Route/Sig Days Date Category Diphenhydramine (Diphenhydramine HCl) 25 Mg Cap 25 Mg PO HS PRN 10/25/16 Reported Clopidogrel (Clopidogrel Bisulfate) 75 Mg Tab 75 Mg PO DAILY 10/25/16 Reported Aspir-81 (Aspirin) 81 Mg Tabdr 10/25/16 Reported Hydrocodone-Acetaminophen 5-325 mg Tab 1 Tab PO Q8HR PRN 10/25/16 Reported Trazodone (Trazodone HCl) 50 Mg Tab 50 Mg PO HS 10/25/16 Reported Tramadol (Tramadol HCl) 50 Mg Tab 50 Mg PO Q4H PRN 10/25/16 Reported Simvastatin 40 Mg Tab 40 Mg PO HS 10/25/16 Reported Losartan (Losartan Potassium) 50 Mg Tab 50 Mg PO DAILY 10/25/16 Reported Family History Mother at age 69 from either colon or ovarian cancer Social History Denies smoking/alcohol abuse/drug abuse. (Stephanie Root) Review of Systems Constitutional: COMPLAINS OF: Fatigue, Weight loss, Change in appetite Respiratory: COMPLAINS OF: Shortness of breath, DENIES: Cough Cardiovascular: COMPLAINS OF: Lower Extremity Edema Gastrointestinal: COMPLAINS OF: Anorexia, DENIES: Abdominal pain, Black stools , Bloody stools, Constipation, Diarrhea, Nausea, Vomiting, Swelling of Abdomen, Heartburn, Hematemesis Musculoskeletal: COMPLAINS OF: Joint pain Integumentary: DENIES: Abnormal pigmentation Hematologic/lymphatic: DENIES: Bruising Neurologic: DENIES: Headache Psychiatric: DENIES: Confusion (Stephanie Root) GI Exam Vitals I&O Vital Signs Date Time Temp Pulse Resp B/P Pulse Ox O2 Delivery O2 Flow Rate FiO2 10/27/16 10:00 77 10/27/16 08:00 80 10/27/16 06:00 86 10/27/16 04:00 84 10/27/16 04:00 98.5 84 15 97/53 90 10/27/16 02:00 86 10/27/16 00:00 98.2 82 17 90/47 88 10/27/16 00:00 82 10/26/16 22:00 85 10/26/16 20:00 97.7 86 20 97/50 92 10/26/16 20:00 86 10/26/16 18:00 80 10/26/16 16:00 98.1 85 17 103/55 93 10/26/16 16:00 74 10/26/16 14:00 71 10/26/16 12:00 98.3 87 17 93/55 93 10/26/16 12:00 77 I/O 10/26/16 10/26/16 10/26/16 10/27/16 10/27/16 10/27/16 07:00 15:00 23:00 07:00 15:00 23:00 Intake Total 0 ml Output Total 0 ml 521 ml Balance 0 ml -521 ml Intake Oral 0 ml Output Urine Total 0 ml 520 ml Stool Total 0 ml 1 ml # Voids 1 1 # Bowel Movements 1 2 Imaging Last Impressions Abdomen/Pelvis CT 10/26/16 0000 Signed Impressions: Service Date/Time: October 09:49 - CONCLUSION: 1. Stable CT scan of the abdomen and pelvis compared to the prior examination. There is no evidence of a subcapsular hematoma or significant free fluid in the right paracolic gutter. There is a trace of fluid in the pelvis which is about the same or mildly improved compared to the prior study. 2. Diverticulosis of the sigmoid colon without inflammatory changes. 3. Right lower lung atelectasis without significant change. Willi Terry MD Lower Extremity Ultrasound 10/25/16 1908 Signed Impressions: Service Date/Time: Tuesday, October 25, 2016 19:20 - CONCLUSION: 1. No DVT in either lower extremity. 2. Small Eastman's cyst on the left. Nico Maya MD CT Angiography 10/25/16 1858 Signed Impressions: Service Date/Time: Tuesday, October 25, 2016 20:35 - CONCLUSION: 1. No evidence for pulmonary embolism. 2. Minimal bibasilar patchy densities likely atelectasis. 3. Small right pleural effusion. 4. Enlarged heterogeneous liver containing multiple areas of low attenuation, concerning for internal hemorrhage/contusion. Nico Maya MD Chest X-Ray 10/25/16 6187 Signed Impressions: Service Date/Time: Tuesday, October 25, 2016 19:22 - CONCLUSION: Diminished lung volumes with clear lungs. Nico Maya MD Laboratory Test 10/26/16 10/27/16 18:46 06:57 Hemoglobin 12.2 GM/DL 10.8 GM/DL Hematocrit 36.2 % 32.1 % Physical Examination HEENT: Normocephalic; atraumatic; no jaundice. CHEST: Chest is clear to auscultation and percussion. CARDIAC: RRR ABDOMEN: Soft, nondistended, nontender; no hepatosplenomegaly; bowel sounds are present in all four quadrants. EXTREMITIES: BLE edema. SKIN: Normal; no rash; no jaundice. 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 (Stephanie Root) Assessment and Plan Plan ASSESSMENT: - Abnormal imaging concerning for possible bleeding from liver biopsy. S/P Liver biopsy , Oct.10. Pt presented to ER with sob, ble swelling and RUQ pain. CT scan of abdomen and pelvis with IV contrast (10/25/16) revealed liver containing multiple areas of low attenuation. Internal hemorrhage cannot be excluded given patient has had a history of recent liver biopsy, minimal fluid in the pelvis but no significant hemoperitoneum, diverticulosis without diverticulitis , minimal by basilar densities likely atelectasis, small right pleural effusion. He then had a repeat CT scan without IV contrast (10/26/16) and this revealed a stable CT scan of the abdomen and pelvis compared to the prior examination. There is no evidence of a subcapsular hematoma or significant free fluid in the right or colic gutter. There is a trace amount of fluid in the pelvis which is about the same or mildly improved compared to the prior study. Diverticulosis of the sigmoid colon without inflammatory changes. Right lower lung atelectasis without significant change. His H&H's have remained stable. Of note he does have mild hypotension although this is remained stable. Does not appear to have active bleeding at this time. - Liver mass, s/p biopsy September 25 and October 10, with adenocarcinoma. Suspected GI primary, but has not had endoscopic evaluation. Oncology consulted. GI consulted for EGD/Colonoscopy. Pt last had colonoscopy in [place] 3-4 years ago, had several polyps removed. Mother from either colon or ovarian cancer. Pt has had 40 lb weight loss since July but denies any other GI symptoms. - SOB, BLE swelling per primary - Hypotension, mild per primary - Hx CVA, on Plavix at home, last had 10/24. PLAN: - Plan for egd/colonoscopy Sunday - Obtain consents - Cardiac diet - Clear liquids Sunday - NPO after MN - Golytely Sunday. - Monitor HH - Notify GI of drop in Hgb or change in VS or clinical status - Await tumor markers - Plan is for port placement by IR Sunday - Plavix has been on hold, last had 10/24 - Supportive care - Further recommendations to follow based on results of above - Pt seen and examined by Dr. Trimble and myself and this note is written on his behalf (Stephanie Root) Physician Comments Seen and examined with Ms. Dk KEITH, Egd/colonoscopy on sunday to look for a GI primary. No evidence of bleeding at biopsy site. Discussed with family at bedside. Thank you (Erika Trimble MD) Stephanie Root Oct 27, 2016 10:50 Erika Trimble MD Oct 27, 2016 16:23
[2016-10-27] MEDS ORDERED: ceFAZolin 2 GM PREMIX 50 ML IV SCH (11:15)
[2016-10-27] MEDS ORDERED: VANCOMYCIN HCL 1000 MG ON-CALL/NS 250 ML IV SCH ×2 (11:15)
--- NOTE | 2016-10-27 11:44 | HHI.PR ---
Subjective Remarks Follow-up possible liver Hemorrhage 10/26/16-patient seen and examined; reports some improvement of right upper quadrant pain, no bleeding reported. Case discussed with Dr. Anguiano, general surgeon. Patient currently nothing by mouth 10/27/16-patient seen and examined; denies any significant right upper quadrant pain. No acute event overnight. Denies any shortness of breath. Objective Vitals Vital Signs Date Time Temp Pulse Resp B/P Pulse Ox O2 Delivery O2 Flow Rate FiO2 10/27/16 10:00 77 10/27/16 08:00 80 10/27/16 06:00 86 10/27/16 04:00 84 10/27/16 04:00 98.5 84 15 97/53 90 10/27/16 02:00 86 10/27/16 00:00 98.2 82 17 90/47 88 10/27/16 00:00 82 10/26/16 22:00 85 10/26/16 20:00 97.7 86 20 97/50 92 10/26/16 20:00 86 10/26/16 18:00 80 10/26/16 16:00 98.1 85 17 103/55 93 10/26/16 16:00 74 10/26/16 14:00 71 10/26/16 12:00 98.3 87 17 93/55 93 10/26/16 12:00 77 I/O 10/26/16 10/26/16 10/26/16 10/27/16 10/27/16 10/27/16 07:00 15:00 23:00 07:00 15:00 23:00 Intake Total 0 ml Output Total 0 ml 521 ml Balance 0 ml -521 ml Intake Oral 0 ml Output Urine Total 0 ml 520 ml Stool Total 0 ml 1 ml # Voids 1 1 # Bowel Movements 1 2 Result Diagram: 10/27/16 0657 10/26/16 0322 Objective Remarks GENERAL: NAD SKIN: Warm and dry. HEAD: Normocephalic. EYES: No scleral icterus. No injection or drainage. NECK: Supple, trachea midline. No JVD or lymphadenopathy. CARDIOVASCULAR: Regular rate and rhythm without murmurs, gallops, or rubs. RESPIRATORY: Breath sounds equal bilaterally. No accessory muscle use. GASTROINTESTINAL: Abdomen soft, mildly tender RUQ, nondistended. +BS MUSCULOSKELETAL: No cyanosis, or edema. BACK: Nontender without obvious deformity. No CVA tenderness. A/P Problem List: (1) Liver hemorrhage ICD Code: K76.89 Status: Acute (2) Dependent edema ICD Code: R60.9 Status: Acute Assessment and Plan 70 yrs old man with 1-Abdominal pain status post liver biopsy/Possible intracapsular liver hemorrhage?:CT abdomen and pelvis reveals questionable hemorrhage within the liver. Case was discussed and reviewed yesterday by interventional radiology and no evidence of liver Hemorrhage. Continue serial H&H monitoring. Appreciate input from general surgery 2-Bilateral lower extremity swelling/edemachronic. CTA negative for PE. DVT study negative. 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 Gastroenterology has been consulted and plan for EGD/colonoscopy on 10/30/16. Interventional radiology to place chemotherapy port as well as on Sunday for anticipation of systemic chemotherapy. Continue to hold Plavix 4-Hypertension: Continue to hold oral hypertensive medications secondary to hypotension Anxiety/depression: Resume outpatient medications DVT prophylaxiswith SCD. Transfer to Nico Funk MD Oct 27, 2016 11:44
[2016-10-27] MEDS ORDERED: diphenhydrAMINE HCL 25 MG CAP PO PRN (12:00)
--- NOTE | 2016-10-27 13:29 | PD.ONC.PN ---
Subjective Subjective Remarks Afebrile overnight. Patient resting comfortably. He denies any pain in his abdomen at present. He states it comes and goes. He denies dyspnea expect when moving. No dyspnea at rest. He had his echo this AM. Results is pending. Objective Data Date Time Temp Pulse Resp B/P Pulse Ox O2 Delivery O2 Flow Rate FiO2 10/27/16 12:00 76 10/27/16 10:00 77 10/27/16 08:00 80 10/27/16 06:00 86 10/27/16 04:00 84 10/27/16 04:00 98.5 84 15 97/53 90 10/27/16 02:00 86 10/27/16 00:00 98.2 82 17 90/47 88 10/27/16 00:00 82 10/26/16 22:00 85 10/26/16 20:00 97.7 86 20 97/50 92 10/26/16 20:00 86 10/26/16 18:00 80 10/26/16 16:00 98.1 85 17 103/55 93 10/26/16 16:00 74 10/26/16 14:00 71 Result Diagram: 10/27/16 0657 10/26/16 0322 Laboratory Results Laboratory Tests Test 10/26/16 10/27/16 10/27/16 18:46 06:57 11:10 Hemoglobin 12.2 GM/DL 10.8 GM/DL Hematocrit 36.2 % 32.1 % Tumor Marker Alpha Fetoprotein 48.9 NG/ML Carcinoembryonic Antigen 10.0 NG/ML Administered Medications Medications (Trade) Dose Ordered Sig/Yobani Route PRN Reason Start Time Stop Time Status Last Admin Dose Admin IV Flush (NS Flush) 2 ml BID FLUSH 10/26/16 09:00 10/26/16 19:41 Pravastatin Sodium (Pravachol) 80 mg HS PO CM 10/26/16 21:00 10/26/16 19:41 Chlorhexidine Gluconate (Chlorhexidine 2% Cloth) 3 pack DAILY@04 TOP 10/27/16 04:00 10/31/16 04:01 10/27/16 04:00 Objective Remarks GENERAL: Elderly male, lying in bed, resting on approach. SKIN: Warm and dry. HEAD: Normocephalic. EYES: No injection or drainage. NECK: Supple, trachea midline. CARDIOVASCULAR: Regular rate and rhythm RESPIRATORY: Breath sounds equal bilaterally. No accessory muscle use. GASTROINTESTINAL: Abdomen soft, non-tender, nondistended. EXTREMITIES: No cyanosis NEUROLOGICAL: awake and alert, normal speech. Assessment/Plan Problem List: (1) Metastatic adenocarcinoma of unknown origin Status: Acute Plan: --CT guided liver biopsy showed adenocarcinoma of likely GI origin --await GI workup--need panendoscopy --CEA mildly elevated at 10 --CA 19-9 pending (2) Dependent edema Status: Acute Plan: --echo pending --BNP elevated --no known h/o heart failure. --also w/ Dyspnea and chest discomfort. -- CTA was negative for pulmonary embolism. --u/s LE showed no DVT (3) Abdominal pain Status: Acute Plan: +significant pain at site of biopsy --CT scans do not show any overt bleeding or hematoma. --Surgery following (4) Dyspnea Status: Acute Assessment 70y/o male with metastatic adenocarcinoma of likely a GI origin admitted with abdominal pain, dyspnea and lower extremity edema. Plan 1. panendoscopy + port placement Sunday 2. await echo. 3. supportive care. Attending Statement The exam, history, and the medical decision-making described in the above note were completed with the assistance of the mid-level provider. I reviewed and agree with the findings presented. I attest that I had a [id number] encounter with the patient on the same day, and personally performed and documented my assessment and findings in the medical record. Sofya Thomas Oct 27, 2016 13:28 Krishna Pruitt MD Oct 28, 2016 01:03
[2016-10-27] MEDS: KETOROLAC TROMETHAMINE 30 MG/ML (IVP) VIAL IVP PRN (14:56)
--- NOTE | 2016-10-27 17:58 | HHI.PR ---
Subjective Subjective Notes Resting in bed Thirsty Objective Vitals/I&O Vital Signs Date Time Temp Pulse Resp B/P Pulse Ox O2 Delivery O2 Flow Rate FiO2 10/27/16 16:00 98.2 94 15 98/71 93 10/26/16 02:13 Room Air Labs Laboratory Tests Test 10/26/16 10/27/16 10/27/16 18:46 06:57 11:10 Hemoglobin 12.2 10.8 Hematocrit 36.2 32.1 Tumor Marker Alpha Fetoprotein 48.9 Carcinoembryonic Antigen 10.0 CA 19-9 Antigen 53.8 Cardiovascular: Regular Lungs: Clear Abdomen: Other (only mild tenderness in RUQ ) Extremities: No edema A/P Assessment and Plan 70 year old male s/p liver bx at [facility] on Oct 10, now with hemorrhage -Monitor H/H daily -Continue holding Plavix -GI consult for EGD/Colonoscopy Attending Note - Dr. Anguiano Abdomen with pain RUQ, mild/moderate Concern for metastatic disease The exam, history, and the medical decision-making described in the above note were completed with the assistance of the mid-level provider. I reviewed and agree with the findings presented. I attest that I had a [id number] encounter with the patient on the same day, and personally performed and documented my assessment and findings in the medical record. Danielle Hayward Oct 27, 2016 17:58 Valentin Anguiano MD Nov 21, 2016 23:31
[2016-10-27] MEDS: traZODone HCL 50 MG TAB PO SCH (20:55)
[2016-10-27] MEDS: PRAVASTATIN SOD 40 MG TAB PO SCH (20:55)
[2016-10-27 21:37] LABS: HEMATOCRIT 31.8 % (39.0-51.0); REVIEW FLAG FINAL
[2016-10-27] MEDS ORDERED: KETOROLAC TROMETHAMINE 10 MG TAB PO ONE (21:45)
[2016-10-28] VITALS: BP 100/63; PULSE 86; RESP 18; TEMP 97.8; O2SAT 95
[2016-10-28 04:00] VITALS: BP 100/60; PULSE 80; RESP 16; TEMP 97.1; O2SAT 94
[2016-10-28] MEDS: CHLORHEXIDINE GLUCONATE 2 % 1 PACK (2 CLOTHS)(taper/protocol) TOP SCH (04:00)
[2016-10-28 08:00] VITALS: BP 111/65; PULSE 73; RESP 16; TEMP 98.5; O2SAT 96
[2016-10-28 08:28] LABS: AUTOMATED NEUTROPHIL # 6.2 TH/MM3 (1.8-7.7); BASOPHIL # 0.1 TH/MM3 (0-0.2); BASOPHIL % 0.9 % (0.0-2.0); EOSINOPHIL # 0.1 TH/MM3 (0-0.4); EOSINOPHIL % 1.5 % (0.0-4.0); HEMATOCRIT 32.1 % (39.0-51.0); HEMO FLAGS DIFF FINAL; LYMPH % 13.4 % (9.0-44.0); LYMPHOCYTE # 1.1 TH/MM3 (1.0-4.8); MEAN CELL VOLUME 95.7 FL (80.0-100.0); MEAN CORPUSCULAR HEMOGLOBIN 31.4 PG (27.0-34.0); MEAN CORPUSCULAR HGB CONC 32.8 % (32.0-36.0); MONO % 8.9 % (0.0-8.0); NEUT % 75.3 % (16.0-70.0); PLATELET COUNT 190 TH/MM3 (150-450); RED BLOOD COUNT 3.36 MIL/MM3 (4.50-5.90); RED CELL DISTRIBUTION WIDTH 16.1 % (11.6-17.2); WHITE BLOOD COUNT 8.2 TH/MM3 (4.0-11.0)
[2016-10-28 08:50] LABS: BICARBONATE 23.8 MEQ/L (21.0-32.0); POTASSIUM 3.6 MEQ/L (3.5-5.1)
[2016-10-28] MEDS: SODIUM CHLORIDE 0.9% FLUSH 5 ML FLUSH FLUSH SCH ×2 (09:00→20:22)
[2016-10-28 12:00] VITALS: BP 96/57; PULSE 83; RESP 16; TEMP 96.9; O2SAT 95
--- NOTE | 2016-10-28 12:17 | HHI.PR ---
Subjective Remarks Follow-up possible liver Hemorrhage 10/26/16-patient seen and examined; reports some improvement of right upper quadrant pain, no bleeding reported. Case discussed with Dr. Anguiano, general surgeon. Patient currently nothing by mouth 10/27/16-patient seen and examined; denies any significant right upper quadrant pain. No acute event overnight. Denies any shortness of breath. 10/28/16-patient seen and examined; had 1 episode of what he described as food being stuck in his throat causing him to trow up but stable now. No GI bleed .Afebrile. family by the bedside Objective Vitals Vital Signs Date Time Temp Pulse Resp B/P Pulse Ox O2 Delivery O2 Flow Rate FiO2 10/28/16 12:00 96.9 83 16 96/57 95 10/28/16 08:00 98.5 73 16 111/65 96 10/28/16 04:00 97.1 80 16 100/60 94 10/28/16 00:00 97.8 86 18 100/63 95 10/27/16 20:00 97.8 95 18 101/64 96 10/27/16 17:00 96.5 92 20 82/51 96 10/27/16 16:00 98.2 94 15 98/71 93 10/27/16 16:00 70 10/27/16 15:56 14 10/27/16 14:00 74 I/O 10/27/16 10/27/16 10/27/16 10/28/16 10/28/16 10/28/16 07:00 15:00 23:00 07:00 15:00 23:00 Intake Total 480 ml 100 ml Output Total 475 ml Balance -475 ml 480 ml 100 ml Intake Oral 480 ml 100 ml Output Urine Total 475 ml # Voids 1 1 1 # Bowel Movements 2 1 Result Diagram: 10/28/16 0631 10/28/16 0637 Imaging Last Impressions Abdomen/Pelvis CT 10/26/16 0000 Signed Impressions: Service Date/Time: October 09:49 - CONCLUSION: 1. Stable CT scan of the abdomen and pelvis compared to the prior examination. There is no evidence of a subcapsular hematoma or significant free fluid in the right paracolic gutter. There is a trace of fluid in the pelvis which is about the same or mildly improved compared to the prior study. 2. Diverticulosis of the sigmoid colon without inflammatory changes. 3. Right lower lung atelectasis without significant change. Willi Terry MD Lower Extremity Ultrasound 10/25/16 190 Signed Impressions: Service Date/Time: Tuesday, October 25, 2016 19:20 - CONCLUSION: 1. No DVT in either lower extremity. 2. Small Eastman's cyst on the left. Nico Maya MD CT Angiography 10/25/16 1859 Signed Impressions: Service Date/Time: Tuesday, October 25, 2016 20:35 - CONCLUSION: 1. No evidence for pulmonary embolism. 2. Minimal bibasilar patchy densities likely atelectasis. 3. Small right pleural effusion. 4. Enlarged heterogeneous liver containing multiple areas of low attenuation, concerning for internal hemorrhage/contusion. Nico Maya MD Chest X-Ray 10/25/16 1825 Signed Impressions: Service Date/Time: Tuesday, October 25, 2016 19:22 - CONCLUSION: Diminished lung volumes with clear lungs. Nico Maya MD Objective Remarks GENERAL: NAD SKIN: Warm and dry. HEAD: Normocephalic. EYES: No scleral icterus. No injection or drainage. NECK: Supple, trachea midline. No JVD or lymphadenopathy. CARDIOVASCULAR: Regular rate and rhythm without murmurs, gallops, or rubs. RESPIRATORY: Breath sounds equal bilaterally. No accessory muscle use. GASTROINTESTINAL: Abdomen soft, mildly tender RUQ, nondistended. +BS MUSCULOSKELETAL: No cyanosis, or edema. BACK: Nontender without obvious deformity. No CVA tenderness. A/P Problem List: (1) Liver hemorrhage ICD Code: K76.89 Status: Acute (2) Dependent edema ICD Code: R60.9 Status: Acute Assessment and Plan 70 yrs old man with 1-Abdominal pain status post liver biopsy/Possible intracapsular liver hemorrhage?:CT abdomen and pelvis reveals questionable hemorrhage within the liver. Case was discussed and reviewed by interventional radiology on 10/26/16 and no evidence of liver Hemorrhage. Continue serial H&H monitoring. Appreciate input from general surgery 2-Bilateral lower extremity swelling/edemachronic. CTA negative for PE. DVT study negative. 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 Gastroenterology has been consulted and plan for EGD/colonoscopy on Sunday, . Interventional radiology to place chemotherapy port as well as on Sunday for anticipation of systemic chemotherapy. Continue to hold Plavix 4-Hypertension: Continue to hold oral hypertensive medications secondary to hypotension Anxiety/depression: continue outpatient medications DVT prophylaxiswith SCD. Nico Renee MD Oct 28, 2016 12:17
--- NOTE | 2016-10-28 13:44 | PD.ONC.PN ---
Subjective Subjective Remarks Afebrile overnight. Patient states that he feels generally well. He states he feels that he has a hard time using his words. Family at bedside say they have not noticed this. He denies shortness of breath. He has minimal abdominal pain. Objective Data Date Time Temp Pulse Resp B/P Pulse Ox O2 Delivery O2 Flow Rate FiO2 10/28/16 12:00 96.9 83 16 96/57 95 10/28/16 08:00 98.5 73 16 111/65 96 10/28/16 04:00 97.1 80 16 100/60 94 10/28/16 00:00 97.8 86 18 100/63 95 10/27/16 20:00 97.8 95 18 101/64 96 10/27/16 17:00 96.5 92 20 82/51 96 10/27/16 16:00 98.2 94 15 98/71 93 10/27/16 16:00 70 10/27/16 15:56 14 10/27/16 14:00 74 10/28/16 10/28/16 10/28/16 07:00 15:00 23:00 Intake Total 100 ml Balance 100 ml Result Diagram: 10/28/16 0631 10/28/16 0637 Laboratory Results Laboratory Tests Test 10/27/16 10/28/16 10/28/16 20:32 06:31 06:37 Hemoglobin 10.8 GM/DL 10.5 GM/DL Hematocrit 31.8 % 32.1 % White Blood Count 8.2 TH/MM3 Red Blood Count 3.36 MIL/MM3 Mean Corpuscular Volume 95.7 FL Mean Corpuscular Hemoglobin 31.4 PG Mean Corpuscular Hemoglobin 32.8 % Concent Red Cell Distribution Width 16.1 % Platelet Count 190 TH/MM3 Mean Platelet Volume 7.7 FL Neutrophils (%) (Auto) 75.3 % Lymphocytes (%) (Auto) 13.4 % Monocytes (%) (Auto) 8.9 % Eosinophils (%) (Auto) 1.5 % Basophils (%) (Auto) 0.9 % Neutrophils # (Auto) 6.2 TH/MM3 Lymphocytes # (Auto) 1.1 TH/MM3 Monocytes # (Auto) 0.7 TH/MM3 Eosinophils # (Auto) 0.1 TH/MM3 Basophils # (Auto) 0.1 TH/MM3 CBC Comment DIFF FINAL Differential Comment Sodium Level 138 MEQ/L Potassium Level 3.6 MEQ/L Chloride Level 103 MEQ/L Carbon Dioxide Level 23.8 MEQ/L Anion Gap 11 MEQ/L Blood Urea Nitrogen 28 MG/DL Creatinine 1.40 MG/DL Estimat Glomerular Filtration 50 ML/MIN Rate Random Glucose 88 MG/DL Calcium Level 7.6 MG/DL Administered Medications Medications (Trade) Dose Ordered Sig/Yobani Route PRN Reason Start Time Stop Time Status Last Admin Dose Admin IV Flush (NS Flush) 2 ml BID FLUSH 10/26/16 09:00 10/28/16 09:00 Pravastatin Sodium (Pravachol) 80 mg HS PO CM 10/26/16 21:00 10/27/16 20:55 Chlorhexidine Gluconate (Chlorhexidine 2% Cloth) 3 pack DAILY@04 TOP 10/27/16 04:00 10/31/16 04:01 10/28/16 04:00 Ketorolac Tromethamine (Toradol Inj) 15 mg Q6H PRN IVP Pain 3-5; if unable to take PO 10/26/16 10:00 10/31/16 09:59 10/27/16 14:56 Trazodone HCl (Desyrel) 50 mg HS PO 10/27/16 21:00 10/27/16 20:55 Objective Remarks GENERAL: Elderly male, lying in bed, resting on approach. Family at bedside. SKIN: Warm and dry. HEAD: Normocephalic. EYES: No injection or drainage. NECK: Supple, trachea midline. CARDIOVASCULAR: Regular rate and rhythm RESPIRATORY: Breath sounds equal bilaterally. No accessory muscle use. GASTROINTESTINAL: Abdomen soft, non-tender, nondistended. EXTREMITIES: No cyanosis NEUROLOGICAL: awake and alert, normal speech. Assessment/Plan Problem List: (1) Metastatic adenocarcinoma of unknown origin Status: Acute Plan: 10/28/16: Panendoscopy planned for Sunday. --CT guided liver biopsy showed adenocarcinoma of likely GI origin --CEA mildly elevated at 10 --CA 19-9 elevated at 53.8 (2) Dependent edema Status: Acute Plan: --echo pending --BNP elevated --no known h/o heart failure. --also w/ Dyspnea and chest discomfort. -- CTA was negative for pulmonary embolism. --u/s LE showed no DVT (3) Abdominal pain Status: Acute Plan: +significant pain at site of biopsy --CT scans do not show any overt bleeding or hematoma. --Surgery following (4) Dyspnea Status: Acute Assessment 70y/o male with metastatic adenocarcinoma of likely a GI origin admitted with abdominal pain, dyspnea and lower extremity edema. Plan 1. Patient will have port placement by interventional radiology on Sunday. 2. GI will do a panendoscopy on Sunday. 3. Await echocardiogram results. 4. Supportive care. Attending Statement The exam, history, and the medical decision-making described in the above note were completed with the assistance of the mid-level provider. I reviewed and agree with the findings presented. I attest that I had a [id number] encounter with the patient on the same day, and personally performed and documented my assessment and findings in the medical record. Endoscopies and port placement on Sunday. 2D echocardiogram pending Start IV Reglan for nausea/feeling of early satiety and fullness d/w Luisana Steele Oct 28, 2016 13:44 Krishna Pruitt MD Oct 29, 2016 00:13
--- NOTE | 2016-10-28 14:45 | HHI.GIFU ---
Subjective Remarks Resting in bed. No n/v. No abdominal pain. No signs of bleeding. (Stephanie Root) Objective Vitals I&O Vital Signs Date Time Temp Pulse Resp B/P Pulse Ox O2 Delivery O2 Flow Rate FiO2 10/28/16 12:00 96.9 83 16 96/57 95 10/28/16 08:00 98.5 73 16 111/65 96 10/28/16 04:00 97.1 80 16 100/60 94 10/28/16 00:00 97.8 86 18 100/63 95 10/27/16 20:00 97.8 95 18 101/64 96 10/27/16 17:00 96.5 92 20 82/51 96 10/27/16 16:00 98.2 94 15 98/71 93 10/27/16 16:00 70 10/27/16 15:56 14 I/O 10/27/16 10/27/16 10/27/16 10/28/16 10/28/16 10/28/16 07:00 15:00 23:00 07:00 15:00 23:00 Intake Total 480 ml 100 ml Output Total 475 ml Balance -475 ml 480 ml 100 ml Intake Oral 480 ml 100 ml Output Urine Total 475 ml # Voids 1 1 1 # Bowel Movements 2 1 Laboratory Laboratory Tests Test 10/27/16 10/28/16 10/28/16 20:32 06:31 06:37 Hemoglobin 10.8 10.5 Hematocrit 31.8 32.1 White Blood Count 8.2 Red Blood Count 3.36 Mean Corpuscular Volume 95.7 Mean Corpuscular Hemoglobin 31.4 Mean Corpuscular Hemoglobin 32.8 Concent Red Cell Distribution Width 16.1 Platelet Count 190 Mean Platelet Volume 7.7 Neutrophils (%) (Auto) 75.3 Lymphocytes (%) (Auto) 13.4 Monocytes (%) (Auto) 8.9 Eosinophils (%) (Auto) 1.5 Basophils (%) (Auto) 0.9 Neutrophils # (Auto) 6.2 Lymphocytes # (Auto) 1.1 Monocytes # (Auto) 0.7 Eosinophils # (Auto) 0.1 Basophils # (Auto) 0.1 CBC Comment DIFF FINAL Differential Comment Sodium Level 138 Potassium Level 3.6 Chloride Level 103 Carbon Dioxide Level 23.8 Anion Gap 11 Blood Urea Nitrogen 28 Creatinine 1.40 Estimat Glomerular Filtration 50 Rate Random Glucose 88 Calcium Level 7.6 Imaging Last Impressions Abdomen/Pelvis CT 10/26/16 0000 Signed Impressions: Service Date/Time: October 09:49 - CONCLUSION: 1. Stable CT scan of the abdomen and pelvis compared to the prior examination. There is no evidence of a subcapsular hematoma or significant free fluid in the right paracolic gutter. There is a trace of fluid in the pelvis which is about the same or mildly improved compared to the prior study. 2. Diverticulosis of the sigmoid colon without inflammatory changes. 3. Right lower lung atelectasis without significant change. Willi Terry MD Lower Extremity Ultrasound 10/25/16 1908 Signed Impressions: Service Date/Time: Tuesday, October 25, 2016 19:20 - CONCLUSION: 1. No DVT in either lower extremity. 2. Small Eastman's cyst on the left. Nico Maya MD CT Angiography 10/25/16 1859 Signed Impressions: Service Date/Time: Tuesday, October 25, 2016 20:35 - CONCLUSION: 1. No evidence for pulmonary embolism. 2. Minimal bibasilar patchy densities likely atelectasis. 3. Small right pleural effusion. 4. Enlarged heterogeneous liver containing multiple areas of low attenuation, concerning for internal hemorrhage/contusion. Nico Maya MD Chest X-Ray 10/25/16 1825 Signed Impressions: Service Date/Time: Tuesday, October 25, 2016 19:22 - CONCLUSION: Diminished lung volumes with clear lungs. Nico Maya MD Physical Exam HEENT: Normocephalic; atraumatic; no jaundice. CHEST: Chest is clear to auscultation and percussion. CARDIAC: RRR ABDOMEN: Soft, nondistended, nontender; no hepatosplenomegaly; bowel sounds are present in all four quadrants. EXTREMITIES: BLE edema. SKIN: Normal; no rash; no jaundice. LINE LEAD: No focal deficits; alert and oriented times three. (Stephanie Root) Assessment and Plan Plan ASSESSMENT: - Abnormal imaging concerning for possible bleeding from liver biopsy. S/P Liver biopsy , Oct.10. Pt presented to ER with sob, ble swelling and RUQ pain. CT scan of abdomen and pelvis with IV contrast (1/18/17) revealed liver containing multiple areas of low attenuation. Internal hemorrhage cannot be excluded given patient has had a history of recent liver biopsy, minimal fluid in the pelvis but no significant hemoperitoneum, diverticulosis without diverticulitis , minimal by basilar densities likely atelectasis, small right pleural effusion. He then had a repeat CT scan without IV contrast (10/26/16) and this revealed a stable CT scan of the abdomen and pelvis compared to the prior examination. There is no evidence of a subcapsular hematoma or significant free fluid in the right or colic gutter. There is a trace amount of fluid in the pelvis which is about the same or mildly improved compared to the prior study. Diverticulosis of the sigmoid colon without inflammatory changes. Right lower lung atelectasis without significant change. His H&H's have remained stable. 10..1 - Liver mass, s/p biopsy September 25 and October 10, with adenocarcinoma. Suspected GI primary, but has not had endoscopic evaluation. Oncology consulted. GI consulted for EGD/Colonoscopy. Pt last had colonoscopy in [place] 3-4 years ago, had several polyps removed. Mother from either colon or ovarian cancer. Pt has had 40 lb weight loss since July but denies any other GI symptoms. Plan for egd/ colonoscopy Sunday, Port placement Sunday. AFP 48.9, CEA 10.0, Ca19-9 53.8. - SOB, BLE swelling per primary - Hypotension, mild per primary - Hx CVA, on Plavix at home, last had 10/24. PLAN: - Plan for egd/colonoscopy Sunday - Obtain consents - Cardiac diet - Clear liquids Sunday - NPO after MN - Golytely Sunday. - Monitor HH - Notify GI of drop in Hgb or change in VS or clinical status - Plan is for port placement by IR Sunday - Plavix has been on hold, last had 10/24 - Supportive care - Further recommendations to follow based on results of above - Pt seen and examined by Dr. Trimble and myself and this note is written on his behalf (Stephanie Root) Physician Comments Seen and examined with Ms. Dk KEITH, no active bleeding. Egd/Colonoscopy planned for sunday. (Erika Trimble MD) Stephanie Root Oct 28, 2016 14:45 Erika Trimble MD Oct 28, 2016 18:52
[2016-10-28 16:00] VITALS: BP 96/53; PULSE 76; RESP 16; TEMP 97.4; O2SAT 96
[2016-10-28] MEDS: METOCLOPRAMIDE HCL 10 MG/2 ML VIAL IV PUSH SCH ×2 (17:44→21:08)
[2016-10-28 19:42] LABS: HEMATOCRIT 32.7 % (39.0-51.0); REVIEW FLAG FINAL
[2016-10-28 20:00] VITALS: BP 97/57; PULSE 88; RESP 16; TEMP 97.6; O2SAT 95
[2016-10-28] MEDS: PRAVASTATIN SOD 40 MG TAB PO SCH (20:22)
[2016-10-28] MEDS: traZODone HCL 50 MG TAB PO SCH (20:22)
--- NOTE | 2016-10-28 21:09 | HHI.PR ---
Subjective Subjective Notes no new c/o stable overnight Objective Vitals/I&O Vital Signs Date Time Temp Pulse Resp B/P Pulse Ox O2 Delivery O2 Flow Rate FiO2 10/28/16 20:00 97.6 88 16 97/57 95 10/26/16 02:13 Room Air Labs Laboratory Tests Test 10/28/16 10/28/16 10/28/16 06:31 06:37 19:25 White Blood Count 8.2 Red Blood Count 3.36 Hemoglobin 10.5 11.0 Hematocrit 32.1 32.7 Mean Corpuscular Volume 95.7 Mean Corpuscular Hemoglobin 31.4 Mean Corpuscular Hemoglobin 32.8 Concent Red Cell Distribution Width 16.1 Platelet Count 190 Mean Platelet Volume 7.7 Neutrophils (%) (Auto) 75.3 Lymphocytes (%) (Auto) 13.4 Monocytes (%) (Auto) 8.9 Eosinophils (%) (Auto) 1.5 Basophils (%) (Auto) 0.9 Neutrophils # (Auto) 6.2 Lymphocytes # (Auto) 1.1 Monocytes # (Auto) 0.7 Eosinophils # (Auto) 0.1 Basophils # (Auto) 0.1 CBC Comment DIFF FINAL Differential Comment Sodium Level 138 Potassium Level 3.6 Chloride Level 103 Carbon Dioxide Level 23.8 Anion Gap 11 Blood Urea Nitrogen 28 Creatinine 1.40 Estimat Glomerular Filtration 50 Rate Random Glucose 88 Calcium Level 7.6 Cardiovascular: Regular Lungs: Clear Abdomen: Non-distended, Non-tender Extremities: Perfused A/P Assessment and Plan 70yo male with liver lesions c/w metastatic disease bleeding after biopsy, stable c-scope and EGD Sunday Papito Kumar MD Oct 28, 2016 21:09
[2016-10-28] MEDS: KETOROLAC TROMETHAMINE 30 MG/ML (IVP) VIAL IVP PRN (22:17)
[2016-10-28] MEDS: TEMAZEPAM 15 MG CAP PO PRN (22:23)
[2016-10-29] VITALS: BP 108/65; PULSE 93; RESP 20; TEMP 97.2; O2SAT 98
[2016-10-29] MEDS: CHLORHEXIDINE GLUCONATE 2 % 1 PACK (2 CLOTHS)(taper/protocol) TOP SCH (04:00)
[2016-10-29] MEDS: METOCLOPRAMIDE HCL 10 MG/2 ML VIAL IV PUSH SCH ×3 (06:00→21:11)
[2016-10-29 08:00] VITALS: BP 99/62; PULSE 71; RESP 18; TEMP 97.3; O2SAT 90
--- NOTE | 2016-10-29 08:24 | PD.ONC.PN ---
Subjective Subjective Remarks Afebrile overnight. Pt sitting up in chair at bedside watching the news. He mentions he has some mild pain in the right side of his abdomen. He is asking when he will have to start drinking his bowel prep today. He states he slept great and has no other complaints. Objective Data Date Time Temp Pulse Resp B/P Pulse Ox O2 Delivery O2 Flow Rate FiO2 10/29/16 00:00 97.2 93 20 108/65 98 10/28/16 20:00 97.6 88 16 97/57 95 10/28/16 16:00 97.4 76 16 96/53 96 10/28/16 12:00 96.9 83 16 96/57 95 10/29/16 10/29/16 10/29/16 07:00 15:00 23:00 Intake Total 480 ml Balance 480 ml Result Diagram: 10/28/16 1925 10/28/16 0637 Laboratory Results Laboratory Tests Test 10/28/16 19:25 Hemoglobin 11.0 GM/DL Hematocrit 32.7 % Imaging Studies Last Impressions Abdomen/Pelvis CT 10/26/16 0000 Signed Impressions: Service Date/Time: October 09:49 - CONCLUSION: 1. Stable CT scan of the abdomen and pelvis compared to the prior examination. There is no evidence of a subcapsular hematoma or significant free fluid in the right paracolic gutter. There is a trace of fluid in the pelvis which is about the same or mildly improved compared to the prior study. 2. Diverticulosis of the sigmoid colon without inflammatory changes. 3. Right lower lung atelectasis without significant change. Willi Terry MD Lower Extremity Ultrasound 10/25/16 1908 Signed Impressions: Service Date/Time: Tuesday, October 25, 2016 19:20 - CONCLUSION: 1. No DVT in either lower extremity. 2. Small Eastman's cyst on the left. Nico Maya MD CT Angiography 10/25/161858 Signed Impressions: Service Date/Time: Tuesday, October 25, 2016 20:35 - CONCLUSION: 1. No evidence for pulmonary embolism. 2. Minimal bibasilar patchy densities likely atelectasis. 3. Small right pleural effusion. 4. Enlarged heterogeneous liver containing multiple areas of low attenuation, concerning for internal hemorrhage/contusion. Nico Maya MD Chest X-Ray 10/25/16 1592 Signed Impressions: Service Date/Time: Tuesday, October 25, 2016 19:22 - CONCLUSION: Diminished lung volumes with clear lungs. Nico Maya MD Administered Medications Medications (Trade) Dose Ordered Sig/Yobani Route PRN Reason Start Time Stop Time Status Last Admin Dose Admin IV Flush (NS Flush) 2 ml BID FLUSH 10/26/16 09:00 10/28/16 20:22 Pravastatin Sodium (Pravachol) 80 mg HS PO CM 10/26/16 21:00 10/28/16 20:22 Chlorhexidine Gluconate (Chlorhexidine 2% Cloth) 3 pack DAILY@04 TOP 10/27/16 04:00 10/31/16 04:01 10/28/16 04:00 Ketorolac Tromethamine (Toradol Inj) 15 mg Q6H PRN IVP Pain 3-5; if unable to take PO 10/26/16 10:00 10/31/16 09:59 10/28/16 22:17 Temazepam (Restoril) 15 mg HS PRN PO INSOMNIA 10/26/16 10:00 10/28/16 22:23 Trazodone HCl (Desyrel) 50 mg HS PO 10/27/16 21:00 10/28/16 20:22 Metoclopramide HCl (Reglan Inj) 5 mg Q8HR IV PUSH 10/28/16 14:00 10/28/16 17:44 Objective Remarks GENERAL: Overweight older male sitting up in chair at bedside in no distress. SKIN: Warm and dry. HEAD: Normocephalic. EYES: No injection or drainage. NECK: Supple, trachea midline. CARDIOVASCULAR: +S1/S2. No murmur appreciated. RESPIRATORY: Lungs clear throughout. Breathing easy and unlabored. GASTROINTESTINAL: Abdomen soft, nondistended. Mildly tender to RUQ. EXTREMITIES: No cyanosis, or edema. MUSCULOSKELETAL: Adequate muscle tone. NEUROLOGICAL: No obvious focal deficit. Awake, alert, and oriented x3. Assessment/Plan Problem List: (1) Metastatic adenocarcinoma of unknown origin Status: Acute Plan: 10/29/16: Panendoscopy planned for tomorrow to determine source. --CT guided liver biopsy showed adenocarcinoma of likely GI origin --CEA mildly elevated at 10 --CA 19-9 elevated at 53.8 (2) Dependent edema Status: Acute Plan: --echo pending --BNP elevated --no known h/o heart failure. --also w/ Dyspnea and chest discomfort. -- CTA was negative for pulmonary embolism. --u/s LE showed no DVT (3) Abdominal pain Status: Acute Plan: +significant pain at site of biopsy --CT scans do not show any overt bleeding or hematoma. --Surgery following (4) Dyspnea Status: Resolved Assessment 70y/o male with metastatic adenocarcinoma of likely a GI origin admitted with abdominal pain, dyspnea and lower extremity edema. Plan 1. Pt encouraged to keep legs elevated for dependent edema; Echo pending. 2. He will start bowel prep today for upper and lower GI series tomorrow. 3. He is also scheduled for port placement in IR tomorrow. 4. Monitor labs 5. Supportive care. Luisana Lane Oct 29, 2016 08:24
--- NOTE | 2016-10-29 08:59 | HHI.PR ---
Subjective Remarks Follow-up possible liver Hemorrhage 10/26/16-patient seen and examined; reports some improvement of right upper quadrant pain, no bleeding reported. Case discussed with Dr. Anguiano, general surgeon. Patient currently nothing by mouth 10/27/16-patient seen and examined; denies any significant right upper quadrant pain. No acute event overnight. Denies any shortness of breath. 10/28/16-patient seen and examined; had 1 episode of what he described as food being stuck in his throat causing him to trow up but stable now. No GI bleed .Afebrile. family by the bedside 10/29/16-patient seen and examined; reported mild right upper quadrant pain. Patient had episode of emesis with soft mechanical diet yesterday however resolved and were able to tolerate clears. No other event overnight. Objective Vitals Vital Signs Date Time Temp Pulse Resp B/P Pulse Ox O2 Delivery O2 Flow Rate FiO2 10/29/16 08:00 97.3 71 18 99/62 90 10/29/16 00:00 97.2 93 20 108/65 98 10/28/16 20:00 97.6 88 16 97/57 95 10/28/16 16:00 97.4 76 16 96/53 96 10/28/16 12:00 96.9 83 16 96/57 95 I/O 10/28/16 10/28/16 10/28/16 10/29/16 10/29/16 10/29/16 07:00 15:00 23:00 07:00 15:00 23:00 Intake Total 580 ml 480 ml 480 ml 240 ml Output Total 200 ml Balance 580 ml 280 ml 480 ml 240 ml Intake Oral 580 ml 480 ml 480 ml 240 ml Output Urine Total 200 ml # Voids 2 1 1 # Bowel Movements 0 1 Result Diagram: 10/28/16 1925 10/28/16 0637 Imaging Last Impressions Abdomen/Pelvis CT 10/26/16 0000 Signed Impressions: Service Date/Time: October 09:49 - CONCLUSION: 1. Stable CT scan of the abdomen and pelvis compared to the prior examination. There is no evidence of a subcapsular hematoma or significant free fluid in the right paracolic gutter. There is a trace of fluid in the pelvis which is about the same or mildly improved compared to the prior study. 2. Diverticulosis of the sigmoid colon without inflammatory changes. 3. Right lower lung atelectasis without significant change. Willi Terry MD Lower Extremity Ultrasound 10/25/16 190 Signed Impressions: Service Date/Time: Tuesday, October 25, 2016 19:20 - CONCLUSION: 1. No DVT in either lower extremity. 2. Small Eastman's cyst on the left. Nico Maya MD CT Angiography 10/25/16 1859 Signed Impressions: Service Date/Time: Tuesday, October 25, 2016 20:35 - CONCLUSION: 1. No evidence for pulmonary embolism. 2. Minimal bibasilar patchy densities likely atelectasis. 3. Small right pleural effusion. 4. Enlarged heterogeneous liver containing multiple areas of low attenuation, concerning for internal hemorrhage/contusion. Nico Maya MD Chest X-Ray 10/25/161824 Signed Impressions: Service Date/Time: Tuesday, October 25, 2016 19:22 - CONCLUSION: Diminished lung volumes with clear lungs. Nico Maya MD Objective Remarks GENERAL: NAD SKIN: Warm and dry. HEAD: Normocephalic. EYES: No scleral icterus. No injection or drainage. NECK: Supple, trachea midline. No JVD or lymphadenopathy. CARDIOVASCULAR: Regular rate and rhythm without murmurs, gallops, or rubs. RESPIRATORY: Breath sounds equal bilaterally. No accessory muscle use. GASTROINTESTINAL: Abdomen soft, mildly tender RUQ, nondistended. +BS MUSCULOSKELETAL: No cyanosis, or edema. BACK: Nontender without obvious deformity. No CVA tenderness. A/P Problem List: (1) Liver hemorrhage ICD Code: K76.89 Status: Acute (2) Dependent edema ICD Code: R60.9 Status: Acute Assessment and Plan 70 yrs old man with 1-Abdominal pain status post liver biopsy/Possible intracapsular liver hemorrhage?:CT abdomen and pelvis reveals questionable hemorrhage within the liver. Case was discussed and reviewed by interventional radiology on 10/26/16 and no evidence of liver Hemorrhage. Continue serial H&H monitoring. Appreciate input from general surgery 2-Bilateral lower extremity swelling/edemachronic. CTA negative for PE. DVT study negative. 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 Gastroenterology has been consulted and plan for EGD/colonoscopy on Sunday tomorrow 10/30/16. Interventional radiology to place chemotherapy port as well as on Sunday for anticipation of systemic chemotherapy. Continue to hold Plavix 4-Hypertension: Continue to hold oral hypertensive medications secondary to hypotension 5-Anxiety/depression: continue outpatient medications DVT prophylaxiswith SCD. Nico Renee MD Oct 29, 2016 08:59
[2016-10-29] MEDS: KETOROLAC TROMETHAMINE 30 MG/ML (IVP) VIAL IVP PRN ×2 (10:13→16:31)
[2016-10-29 11:20] LABS: AUTOMATED NEUTROPHIL # 5.9 TH/MM3 (1.8-7.7); BASOPHIL # 0.1 TH/MM3 (0-0.2); BASOPHIL % 0.7 % (0.0-2.0); EOSINOPHIL # 0.1 TH/MM3 (0-0.4); EOSINOPHIL % 1.4 % (0.0-4.0); HEMATOCRIT 34.9 % (39.0-51.0); HEMO FLAGS DIFF FINAL; LYMPH % 12.6 % (9.0-44.0); LYMPHOCYTE # 0.9 TH/MM3 (1.0-4.8); MEAN CELL VOLUME 95.4 FL (80.0-100.0); MEAN CORPUSCULAR HEMOGLOBIN 31.9 PG (27.0-34.0); MEAN CORPUSCULAR HGB CONC 33.5 % (32.0-36.0); MONO % 6.5 % (0.0-8.0); NEUT % 78.8 % (16.0-70.0); PLATELET COUNT 199 TH/MM3 (150-450); RED BLOOD COUNT 3.66 MIL/MM3 (4.50-5.90); WHITE BLOOD COUNT 7.5 TH/MM3 (4.0-11.0)
[2016-10-29 11:45] LABS: BICARBONATE 23.8 MEQ/L (21.0-32.0); POTASSIUM 3.7 MEQ/L (3.5-5.1)
[2016-10-29 12:00] VITALS: BP 86/60; PULSE 73; RESP 18; TEMP 96.5; O2SAT 95
--- NOTE | 2016-10-29 12:12 | HHI.PR ---
Subjective Subjective Notes feels fine, tolerating po, awaiting endoscopy tomorrow Objective Vitals/I&O Vital Signs Date Time Temp Pulse Resp B/P Pulse Ox O2 Delivery O2 Flow Rate FiO2 10/29/16 08:00 97.3 71 18 99/62 90 10/26/16 02:13 Room Air Labs Laboratory Tests Test 10/28/16 10/29/16 19:25 10:37 Hemoglobin 11.0 11.7 Hematocrit 32.7 34.9 White Blood Count 7.5 Red Blood Count 3.66 Mean Corpuscular Volume 95.4 Mean Corpuscular Hemoglobin 31.9 Mean Corpuscular Hemoglobin 33.5 Concent Red Cell Distribution Width 16.0 Platelet Count 199 Mean Platelet Volume 8.0 Neutrophils (%) (Auto) 78.8 Lymphocytes (%) (Auto) 12.6 Monocytes (%) (Auto) 6.5 Eosinophils (%) (Auto) 1.4 Basophils (%) (Auto) 0.7 Neutrophils # (Auto) 5.9 Lymphocytes # (Auto) 0.9 Monocytes # (Auto) 0.5 Eosinophils # (Auto) 0.1 Basophils # (Auto) 0.1 CBC Comment DIFF FINAL Differential Comment Sodium Level 138 Potassium Level 3.7 Chloride Level 102 Carbon Dioxide Level 23.8 Anion Gap 12 Blood Urea Nitrogen 24 Creatinine 1.37 Estimat Glomerular Filtration 51 Rate Random Glucose 128 Calcium Level 7.9 Abdomen: Non-distended, Non-tender, BS normal A/P Assessment and Plan liver mass, possible bleeding stable, H/H going up endoscopy tomorrow with GI Dr. Anguiano will FU and make surgical recommendations this week. Jamin Cuba MD Oct 29, 2016 12:12
[2016-10-29] MEDS: SODIUM CHLORIDE 0.9% FLUSH 5 ML FLUSH FLUSH SCH ×2 (15:36→21:16)
[2016-10-29 16:00] VITALS: BP 84/56; PULSE 78; RESP 18; TEMP 97; O2SAT 94
[2016-10-29] MEDS ORDERED: PEG (High)/E-LYTE SOLN 4000 ML BTL PO ONE (16:00)
[2016-10-29 20:00] VITALS: BP 95/59; PULSE 87; RESP 19; TEMP 96.8; O2SAT 97
[2016-10-29 20:25] LABS: HEMATOCRIT 35.9 % (39.0-51.0); REVIEW FLAG FINAL
[2016-10-29] MEDS: traZODone HCL 50 MG TAB PO SCH (21:10)
[2016-10-29] MEDS: PRAVASTATIN SOD 40 MG TAB PO SCH (21:10)
[2016-10-29] MEDS: SODIUM CHLOR 0.9% 1000 ML INJ 1,000 ML IV SCH (21:45)
[2016-10-30] VITALS (7 sets, daily range): BP systolic 87–101; BP diastolic 52–63; PULSE 81–83; RESP 16–20; TEMP 95.4–97.8; O2SAT 92–95
[2016-10-30] MEDS: KETOROLAC TROMETHAMINE 30 MG/ML (IVP) VIAL IVP PRN ×2 (00:38→22:08)
[2016-10-30] MEDS: CHLORHEXIDINE GLUCONATE 2 % 1 PACK (2 CLOTHS)(taper/protocol) TOP SCH (03:30)
[2016-10-30] MEDS: METOCLOPRAMIDE HCL 10 MG/2 ML VIAL IV PUSH SCH ×3 (05:58→19:46)
[2016-10-30 07:11] LABS: AUTOMATED NEUTROPHIL # 5.7 TH/MM3 (1.8-7.7); BASOPHIL % 0.6 % (0.0-2.0); EOSINOPHIL # 0.2 TH/MM3 (0-0.4); EOSINOPHIL % 2.1 % (0.0-4.0); LYMPH % 13.9 % (9.0-44.0); LYMPHOCYTE # 1.1 TH/MM3 (1.0-4.8); MEAN CORPUSCULAR HEMOGLOBIN 31.8 PG (27.0-34.0); MEAN CORPUSCULAR HGB CONC 33.5 % (32.0-36.0); MONO % 8.7 % (0.0-8.0); NEUT % 74.7 % (16.0-70.0); PLATELET COUNT 183 TH/MM3 (150-450); RED BLOOD COUNT 3.37 MIL/MM3 (4.50-5.90); RED CELL DISTRIBUTION WIDTH 15.7 % (11.6-17.2); WHITE BLOOD COUNT 7.6 TH/MM3 (4.0-11.0)
[2016-10-30 07:20] LABS: HEMO FLAGS AUTO DIFF
[2016-10-30 07:55] LABS: BICARBONATE 24.7 MEQ/L (21.0-32.0); POTASSIUM 3.8 MEQ/L (3.5-5.1)
[2016-10-30] MEDS: SODIUM CHLORIDE 0.9% FLUSH 5 ML FLUSH FLUSH SCH ×2 (09:00→19:45)
--- NOTE | 2016-10-30 09:41 | HHI.PR ---
Subjective Remarks Follow-up possible liver Hemorrhage 10/26/16-patient seen and examined; reports some improvement of right upper quadrant pain, no bleeding reported. Case discussed with Dr. Anguiano, general surgeon. Patient currently nothing by mouth 10/27/16-patient seen and examined; denies any significant right upper quadrant pain. No acute event overnight. Denies any shortness of breath. 10/28/16-patient seen and examined; had 1 episode of what he described as food being stuck in his throat causing him to trow up but stable now. No GI bleed .Afebrile. family by the bedside 10/29/16-patient seen and examined; reported mild right upper quadrant pain. Patient had episode of emesis with soft mechanical diet yesterday however resolved and were able to tolerate clears. No other event overnight. 10/30/16-patient seen and examined, currently nothing by mouth and no acute event overnight. Stable. Abdominal pain improving. Objective Vitals Vital Signs Date Time Temp Pulse Resp B/P Pulse Ox O2 Delivery O2 Flow Rate FiO2 10/30/16 07:30 96.5 81 20 96/53 92 Automatic Cuff 10/30/16 05:59 90/54 10/30/16 00:00 92/52 10/29/16 20:00 96.8 87 19 95/59 97 10/29/16 16:00 97.0 78 18 84/56 94 10/29/16 12:00 96.5 73 18 86/60 95 I/O 10/29/16 10/29/16 10/29/16 10/30/16 10/30/16 10/30/16 07:00 15:00 23:00 07:00 15:00 23:00 Intake Total 480 ml 1200 ml 1680 ml 0 ml Balance 480 ml 1200 ml 1680 ml 0 ml Intake Oral 480 ml 1200 ml 1680 ml 0 ml # Voids 1 3 1 # Bowel Movements 0 3 1 Result Diagram: 10/30/16 0556 10/30/16 0556 Objective Remarks GENERAL: NAD SKIN: Warm and dry. HEAD: Normocephalic. EYES: No scleral icterus. No injection or drainage. NECK: Supple, trachea midline. No JVD or lymphadenopathy. CARDIOVASCULAR: Regular rate and rhythm without murmurs, gallops, or rubs. RESPIRATORY: Breath sounds equal bilaterally. No accessory muscle use. GASTROINTESTINAL: Abdomen soft, mildly tender RUQ, nondistended. +BS MUSCULOSKELETAL: No cyanosis, or edema. BACK: Nontender without obvious deformity. No CVA tenderness. A/P Problem List: (1) Liver hemorrhage ICD Code: K76.89 Status: Acute (2) Dependent edema ICD Code: R60.9 Status: Acute Assessment and Plan 70 yrs old man with 1-Abdominal pain status post liver biopsy/Possible intracapsular liver hemorrhage?:CT abdomen and pelvis reveals questionable hemorrhage within the liver. Case was discussed and reviewed by interventional radiology on 10/26/16 and no evidence of liver Hemorrhage. H&H remained stable and Continue serial H& H monitoring. Appreciate input from general surgery 2-Bilateral lower extremity swelling/edemachronic. CTA negative for PE. DVT study negative. 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 Gastroenterology has been consulted and plan for EGD/colonoscopy today . Interventional radiology to place chemotherapy port as well as on Sunday for anticipation of systemic chemotherapy. Continue to hold Plavix 4-Hypertension: Continue to hold oral hypertensive medications secondary to hypotension. Currently on IV fluid hydration 5-Anxiety/depression: continue outpatient medications 6-Hypotension: Continue to hold oral hypertensive medication, on IV fluid hydration DVT prophylaxiswith SCD. Nico Renee MD Oct 30, 2016 09:41
[2016-10-30 11:06] LABS: EOSINOPHILS 1 % (0-4); METAMYELOCYTES 3 % (0-1); PLATELET ESTIMATE SMEAR NORMAL (NORMAL); PLATELET MORPHOLOGY NORMAL (NORMAL); POLYS (SEG NEUTROPHILS) 76 % (16-70); SCAN/DIFF FINAL DIFF MANUAL; WBC DIFF SAMPLE 100
--- NOTE | 2016-10-30 11:06 | PD.ONC.PN ---
Subjective Subjective Remarks Afebrile overnight. Patient resting comfortably without complaint. He is getting ready to go down for EGD/colonoscopy. Objective Data Date Time Temp Pulse Resp B/P Pulse Ox O2 Delivery O2 Flow Rate FiO2 10/30/16 07:30 96.5 81 20 96/53 92 Automatic Cuff 10/30/16 05:59 90/54 10/30/16 00:00 92/52 10/29/16 20:00 96.8 87 19 95/59 97 10/29/16 16:00 97.0 78 18 84/56 94 10/29/16 12:00 96.5 73 18 86/60 95 Result Diagram: 10/30/16 0556 10/30/16 0556 Laboratory Results Laboratory Tests Test 10/29/16 10/30/16 19:50 05:56 Hemoglobin 12.1 GM/DL 10.7 GM/DL Hematocrit 35.9 % 32.0 % White Blood Count 7.6 TH/MM3 Red Blood Count 3.37 MIL/MM3 Mean Corpuscular Volume 95.0 FL Mean Corpuscular Hemoglobin 31.8 PG Mean Corpuscular Hemoglobin 33.5 % Concent Red Cell Distribution Width 15.7 % Platelet Count 183 TH/MM3 Mean Platelet Volume 8.3 FL Neutrophils (%) (Auto) 74.7 % Lymphocytes (%) (Auto) 13.9 % Monocytes (%) (Auto) 8.7 % Eosinophils (%) (Auto) 2.1 % Basophils (%) (Auto) 0.6 % Neutrophils # (Auto) 5.7 TH/MM3 Lymphocytes # (Auto) 1.1 TH/MM3 Monocytes # (Auto) 0.7 TH/MM3 Eosinophils # (Auto) 0.2 TH/MM3 Basophils # (Auto) 0.0 TH/MM3 CBC Comment AUTO DIFF Sodium Level 137 MEQ/L Potassium Level 3.8 MEQ/L Chloride Level 101 MEQ/L Carbon Dioxide Level 24.7 MEQ/L Anion Gap 11 MEQ/L Blood Urea Nitrogen 23 MG/DL Creatinine 1.15 MG/DL Estimat Glomerular Filtration 63 ML/MIN Rate Random Glucose 68 MG/DL Calcium Level 7.7 MG/DL Magnesium Level 2.0 MG/DL Administered Medications Medications (Trade) Dose Ordered Sig/Yobani Route PRN Reason Start Time Stop Time Status Last Admin Dose Admin IV Flush (NS Flush) 2 ml BID FLUSH 10/26/16 09:00 10/29/16 21:16 Pravastatin Sodium (Pravachol) 80 mg HS PO CM 10/26/16 21:00 10/29/16 21:10 Chlorhexidine Gluconate (Chlorhexidine 2% Cloth) 3 pack DAILY@04 TOP 10/27/16 04:00 10/31/16 04:01 10/28/16 04:00 Ketorolac Tromethamine (Toradol Inj) 15 mg Q6H PRN IVP Pain 3-5; if unable to take PO 10/26/16 10:00 10/31/16 09:59 10/30/16 00:38 Temazepam (Restoril) 15 mg HS PRN PO INSOMNIA 10/26/16 10:00 10/28/16 22:23 Trazodone HCl (Desyrel) 50 mg HS PO 10/27/16 21:00 10/29/16 21:10 Metoclopramide HCl (Reglan Inj) 5 mg Q8HR IV PUSH 10/28/16 14:00 10/29/16 21:11 Objective Remarks GENERAL: Elderly male, sitting up in bed, getting ready to go down SKIN: Warm and dry. HEAD: Normocephalic. EYES: No injection or drainage. NECK: Supple, trachea midline. CARDIOVASCULAR: Regular rate and rhythm RESPIRATORY: Breath sounds equal bilaterally. No accessory muscle use. GASTROINTESTINAL: Abdomen soft, mildly tender throughout, nondistended. EXTREMITIES: No cyanosis. 3+ pitting edema. NEUROLOGICAL: awake and alert, normal speech. moving all extremities Assessment/Plan Problem List: (1) Metastatic adenocarcinoma of unknown origin Status: Acute Plan: 10/30/16: Panendoscopy today, port placement today --CT guided liver biopsy showed adenocarcinoma of likely GI origin --CEA mildly elevated at 10 --CA 19-9 elevated at 53.8 (2) Dependent edema Status: Acute Plan: --echo pending --BNP elevated --no known h/o heart failure. --also w/ Dyspnea and chest discomfort. -- CTA was negative for pulmonary embolism. --u/s LE showed no DVT (3) Abdominal pain Status: Acute Plan: +significant pain at site of biopsy --CT scans do not show any overt bleeding or hematoma. --Surgery following (4) Dyspnea Status: Resolved Assessment 70y/o male with metastatic adenocarcinoma of likely a GI origin admitted with abdominal pain, dyspnea and lower extremity edema. Plan 1. panendoscopy today 2. supportive care 3. port placement today. 4. ask cardiology for echo report. Attending Statement The exam, history, and the medical decision-making described in the above note were completed with the assistance of the mid-level provider. I reviewed and agree with the findings presented. I attest that I had a [id number] encounter with the patient on the same day, and personally performed and documented my assessment and findings in the medical record. Upper endoscopy revealed an esophageal mass. path pending. Port placed. Ok to d/ c from oncology perspective. f/u in clinic in 1 week. plan for outpatient PET/ CT scan and chemotherapy Sofya Thomas Oct 30, 2016 11:06 Krishna Pruitt MD Oct 30, 2016 23:03
[2016-10-30] MEDS ORDERED: MIDAZOLAM HCL 5 MG/5 ML VIAL ONE (11:26)
[2016-10-30] MEDS ORDERED: fentaNYL CITRATE 250 MCG/5 ML AMP ONE (11:26)
[2016-10-30] MEDS ORDERED: LIDOCAINE 1%/EPINEPHrine 1:100,000 SOLN 20 ML VIAL ONE (11:34)
--- NOTE | 2016-10-30 12:20 | PD.RAD ---
Post Procedure Progress Note Pre Procedure Diagnosis: (1) Metastatic adenocarcinoma of unknown origin Post Procedure Diagnosis: (1) Metastatic adenocarcinoma of unknown origin Procedure Date: Oct 30, 2016 Supervising Radiologist: Toribio Bain Anesthesia: Local, Conscious Sedation Plan of Activity Patient to Unit: ROPU Patient Condition: Fair Additional Comments: Port placed via the right subclavian. Catheter in good position Ok for use See PACS Report for procedural detail/treatment Toribio Bain MD Oct 30, 2016 12:20
[2016-10-30] MEDS ORDERED: SODIUM CHLORIDE 0.9% FLUSH 5 ML FLUSH IVF PRN (12:30)
--- NOTE | 2016-10-30 12:36 | HHI.PR ---
Subjective Subjective Notes Spoke with explaining pathology findings in liver and planned procedures Objective Vitals/I&O Vital Signs Date Time Temp Pulse Resp B/P Pulse Ox O2 Delivery O2 Flow Rate FiO2 10/30/16 07:30 96.5 81 20 96/53 92 Automatic Cuff Labs Laboratory Tests Test 10/29/16 10/30/16 19:50 05:56 Hemoglobin 12.1 10.7 Hematocrit 35.9 32.0 White Blood Count 7.6 Red Blood Count 3.37 Mean Corpuscular Volume 95.0 Mean Corpuscular Hemoglobin 31.8 Mean Corpuscular Hemoglobin 33.5 Concent Red Cell Distribution Width 15.7 Platelet Count 183 Mean Platelet Volume 8.3 Neutrophils (%) (Auto) 74.7 Lymphocytes (%) (Auto) 13.9 Monocytes (%) (Auto) 8.7 Eosinophils (%) (Auto) 2.1 Basophils (%) (Auto) 0.6 Neutrophils # (Auto) 5.7 Lymphocytes # (Auto) 1.1 Monocytes # (Auto) 0.7 Eosinophils # (Auto) 0.2 Basophils # (Auto) 0.0 CBC Comment AUTO DIFF Differential Total Cells 100 Counted Neutrophils % (Manual) 76 Lymphocytes % 11 Monocytes % 9 Eosinophils % 1 Neutrophils # (Manual) 6.0 Metamyelocytes 3 Differential Comment FINAL DIFF MANUAL Platelet Estimate NORMAL Platelet Morphology Comment NORMAL Sodium Level 137 Potassium Level 3.8 Chloride Level 101 Carbon Dioxide Level 24.7 Anion Gap 11 Blood Urea Nitrogen 23 Creatinine 1.15 Estimat Glomerular Filtration 63 Rate Random Glucose 68 Calcium Level 7.7 Magnesium Level 2.0 Lungs: Clear Abdomen: Other (tender on right side near costal margin) A/P Assessment and Plan 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 Hb 10.7, SBP in the 90's Plan: Endoscopy today PET scan planned as well to look for other sources/mets Down for port now. Will follow; may need some volume today. Valentin Anguiano MD Oct 30, 2016 12:36
[2016-10-30] MEDS ORDERED: SODIUM CHLORID 0.9% 500 ML INJ 500 ML IV ONE (12:45)
[2016-10-30] MEDS ORDERED: LACTATED RINGER'S 1,000 ML BAG IV ONE (14:18)
[2016-10-30] MEDS ORDERED: PROPOFOL 200 MG/20 ML AMP IV ONE (14:18)
--- NOTE | 2016-10-30 18:48 | RADRPT ---
EXAM DATE/TIME: 10/30/2016 11:35 [facility] COMPARISON: No previous studies available for comparison. INDICATIONS : Patient is in need of placement of an Infusaport for chemotherapy treatment. MEDICAL HISTORY : History of metatstatic adenocarcinoma, chronic bilateral lower extremity edema, HTN. SURGICAL HISTORY : History of liver biopsy and appendectomy. ENCOUNTER: Initial ACUITY: 4-6 days PAIN SCORE: 2/10 LOCATION: RLQ FLUORO TIME: 0.5 minutes SEDATION TIME: 30 minutes ACCESS: Right subclavian vein SEDATION: 1.) 2.5 mg midazolam (Versed) IV 2.) 125 mcg fentanyl (Sublimaze) IV Prophylactic antibiotics were administered with appropriate pre-procedure timing. Vancomycin within 2 hours of procedure, Ancef (or alternative) within 1 hour of procedure. DEVICE: 1. 8 [place] Power Port PROCEDURE : 1. Continuous pulse oximetry and EKG monitoring. 2. Intravenous conscious sedation. 3. Ultrasound guidance for venous access. 4. Fluoroscopic guided implantable central venous port placement. The patient was placed supine. The neck was prepped in sterile fashion. Full sterile technique was u sed, including cap, mask, sterile gloves and gown, and a large sterile sheet. Hand hygiene and 2% ch lorhexidine Betadine was utilized per protocol for cutaneous antisepsis with appropriate dry time for site. The skin and subcutaneous tissues were infiltrated with local anesthetic solution. Under direct ultrasound guidance, central venous access was accomplished in the targeted vessel. The ultrasound images depicting access guidance were stored and saved to PACS for permanent record. A s ubcutaneous pocket was created using blunt dissection. The port was introduced to the pocket. The c atheter tubing was fed through a subcutaneous tunnel to the venotomy site. The catheter tubing was c ut to a suitable length and then was introduced through a valved Peel-Away sheath and positioned with catheter tubing tip at the cavo-atrial junction level. The pocket incision was closed with subcutic ular Vicryl suture. Steri-Strips were applied. The port was flushed and locked with heparin solutio n per protocol. Sterile dressing was applied to the site. The patient tolerated the procedure well. Conscious sedation was performed with the prescribed dosages and duration as above. The patient kailey ated the procedure well and there were no complications. EKG and oximetry remained stable throughout the procedure. The patient was sent to post anesthesia recovery in stable condition. CONCLUSION: Uncomplicated ultrasound and fluoroscopic guided implanted central venous port catheter placement as described in detail above. An 8 [place] Power port was placed. Toribio Bain MD on October 30, 2016 at 18:46 Board Certified Radiologist. This report was verified electronically.
[2016-10-30] MEDS: traZODone HCL 50 MG TAB PO SCH (19:47)
[2016-10-30] MEDS: PRAVASTATIN SOD 40 MG TAB PO SCH (19:47)
[2016-10-30] MEDS: SODIUM CHLOR 0.9% 1000 ML INJ 1,000 ML IV SCH ×2 (21:54→23:00)
[2016-10-30] MEDS: TEMAZEPAM 15 MG CAP PO PRN (22:08)
[2016-10-31] VITALS: BP 121/58; PULSE 84; RESP 18; TEMP 99; O2SAT 95
[2016-10-31 04:00] VITALS: BP 101/57; PULSE 81; RESP 16; TEMP 98.5; O2SAT 95
[2016-10-31] MEDS: CHLORHEXIDINE GLUCONATE 2 % 1 PACK (2 CLOTHS)(taper/protocol) TOP SCH (04:00)
[2016-10-31] MEDS: METOCLOPRAMIDE HCL 10 MG/2 ML VIAL IV PUSH SCH (05:43)
[2016-10-31 07:40] VITALS: BP 104/60; PULSE 78; RESP 18; TEMP 96.6; O2SAT 94
[2016-10-31] MEDS: SODIUM CHLOR 0.9% 1000 ML INJ 1,000 ML IV SCH (07:47)
[2016-10-31 08:16] VITALS: O2SAT 93
[2016-10-31] MEDS: SODIUM CHLORIDE 0.9% FLUSH 5 ML FLUSH FLUSH SCH (08:38)
--- NOTE | 2016-10-31 09:11 | HHI.FF ---
Face to Face Verification Diagnosis: (1) Metastatic adenocarcinoma of unknown origin (2) Liver hemorrhage (3) Abdominal pain Physical Therapy Order: Evaluate and Treat Home Health Nursing Order: Signs/symptoms of disease process I have seen patient Pedro Luis Wilson on 10/31/16. My clinical findings support the need for the requested home health care services because: Deconditioned w/ increased weakness I certify that my clinical findings support that this patient is homebound because: Poor cardiac reserve Nico Renee MD Oct 31, 2016 09:11
--- NOTE | 2016-10-31 09:16 | HHI.PR ---
Subjective Remarks Follow-up possible liver Hemorrhage 10/26/16-patient seen and examined; reports some improvement of right upper quadrant pain, no bleeding reported. Case discussed with Dr. Anguiano, general surgeon. Patient currently nothing by mouth 10/27/16-patient seen and examined; denies any significant right upper quadrant pain. No acute event overnight. Denies any shortness of breath. 10/28/16-patient seen and examined; had 1 episode of what he described as food being stuck in his throat causing him to trow up but stable now. No GI bleed .Afebrile. family by the bedside 10/29/16-patient seen and examined; reported mild right upper quadrant pain. Patient had episode of emesis with soft mechanical diet yesterday however resolved and were able to tolerate clears. No other event overnight. 10/30/16-patient seen and examined, currently nothing by mouth and no acute event overnight. Stable. Abdominal pain improving. 10/31/16-patient seen and examined. Had EGD done yesterday, and infusion port placed as well. No acute events overnight. BP soft stable. Taking by mouth without any complication nausea and vomiting. by the bedside. Patient would like to be discharged home today. Objective Vitals Vital Signs Date Time Temp Pulse Resp B/P Pulse Ox O2 Delivery O2 Flow Rate FiO2 10/31/16 08:16 93 21 10/31/16 07:40 96.6 78 18 104/60 94 10/31/16 04:00 98.5 81 16 101/57 95 10/31/16 00:00 99.0 84 18 121/58 95 10/30/16 20:00 96.5 83 16 101/55 95 10/30/16 17:35 92/58 10/30/16 15:50 95.4 81 20 88/56 92 10/30/16 15:50 95.4 81 20 88/56 92 10/30/16 15:10 87 16 115/76 96 10/30/16 15:00 78 16 92/60 92 10/30/16 14:51 97.9 79 16 90/58 93 10/30/16 13:00 97.8 83 20 87/63 92 I/O 10/30/16 10/30/16 10/30/16 10/31/16 10/31/16 10/31/16 07:00 15:00 23:00 07:00 15:00 23:00 Intake Total 0 ml 721 ml 480 ml 1949 ml Output Total 200 ml 300 ml 300 ml Balance 0 ml 521 ml 480 ml 1649 ml -300 ml Intake Oral 0 ml 0 ml 480 ml IV Total 221 ml 1949 ml Other 500 ml Output Urine Total 200 ml 300 ml 300 ml # Voids 1 1 2 # Bowel Movements 1 1 Result Diagram: 10/30/16 0556 10/30/16 0556 Objective Remarks GENERAL: NAD SKIN: Warm and dry. HEAD: Normocephalic. EYES: No scleral icterus. No injection or drainage. NECK: Supple, trachea midline. No JVD or lymphadenopathy. CARDIOVASCULAR: Regular rate and rhythm without murmurs, gallops, or rubs. RESPIRATORY: Breath sounds equal bilaterally. No accessory muscle use. GASTROINTESTINAL: Abdomen soft, mildly tender RUQ, nondistended. +BS MUSCULOSKELETAL: No cyanosis, or edema. BACK: Nontender without obvious deformity. No CVA tenderness. A/P Problem List: (1) Liver hemorrhage ICD Code: K76.89 Status: Acute (2) Dependent edema ICD Code: R60.9 Status: Acute (3) Metastatic adenocarcinoma of unknown origin ICD Code: C80.1 Status: Acute (4) Hypotension ICD Code: I95.9 Status: Acute Assessment and Plan 70 yrs old man with 1-Abdominal pain status post liver biopsy/Possible intracapsular liver hemorrhage?:CT abdomen and pelvis reveals questionable hemorrhage within the liver. Case was discussed and reviewed by interventional radiology on 10/26/16 and no evidence of liver Hemorrhage. H&H remained stable and Continue serial H& H monitoring. Appreciate input from general surgery 2-Bilateral lower extremity swelling/edemachronic. CTA negative for PE. DVT study negative. 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 Appreciate input from medical oncology and all tumor markers including AFP/CEA and Ca19-9 elevated. Gastroenterology has been consulted and s/p EGD 10/30/16. Status post chemotherapy port placed 10/30/16 for anticipation of systemic chemotherapy. Patient will need outpatient PET scan. Resume Plavix as of today 10/31/16 4-Hypertension: Continue to hold oral hypertensive medications secondary to hypotension however BP now slightly up but stable.. Currently on IV fluid hydration 5-Anxiety/depression: continue outpatient medications 6-Hypotension: Continue to hold oral hypertensive medication, on IV fluid hydration DVT prophylaxiswith SCD. Nico Renee MD Oct 31, 2016 09:16
--- NOTE | 2016-10-31 09:27 | HHI.DS ---
Discharge Summary Admission Date Oct 25, 2016 at 21:58 Discharge Date: Oct 31, 2016 Admitting Diagnosis liver hemorrhage. Dependent edema. 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 Patient reported that he has had liver biopsy done on October 10, 2016. He stated since then, he was having this right upper quadrant abdominal pain. He denies any nausea or vomiting. Denies any diarrhea or constipation. Denies seeing blood in his stool or in his urine. Denies any fever. Denies any increase abdominal girth. He states that his abdomen always having quite bake. Patient reports of bilateral lower extremity edema. However he also states that this edema has been there for about a year or so at least. Patient then went to his oncologist for appointments and when he was complaining about this abdominal pain, oncologist had sent him to the hospital for further evaluation. In the emergency room, patient's imaging studies reviewed possible hemorrhage within the liver capsule. Patient however remains hemodynamically stable. His hemoglobin hematocrit is also stable. CBC/BMP: 10/30/16 0556 10/30/16 0556 Significant Findings Laboratory Tests Test 10/28/16 10/29/16 10/29/16 10/30/16 19:25 10:37 19:50 05:56 Hemoglobin 11.0 GM/DL 11.7 GM/DL 12.1 GM/DL 10.7 GM/DL (13.0-17.0) (13.0-17.0) (13.0-17.0) (13.0-17.0) Hematocrit 32.7 % 34.9 % 35.9 % 32.0 % (39.0-51.0) (39.0-51.0) (39.0-51.0) (39.0-51.0) Red Blood Count 3.66 MIL/MM3 3.37 MIL/MM3 (4.50-5.90) (4.50-5.90) Neutrophils (%) (Auto) 78.8 % 74.7 % (16.0-70.0) (16.0-70.0) Lymphocytes # (Auto) 0.9 TH/MM3 (1.0-4.8) Blood Urea Nitrogen 24 MG/DL (7-18) 23 MG/DL (7-18) Creatinine 1.37 MG/DL (0.60-1.30) Estimat Glomerular Filtration 51 ML/MIN (>89) 63 ML/MIN (>89) Rate Random Glucose 128 MG/DL 68 MG/DL (74-106) (74-106) Calcium Level 7.9 MG/DL 7.7 MG/DL (8.5-10.1) (8.5-10.1) Monocytes (%) (Auto) 8.7 % (0.0-8.0) Neutrophils % (Manual) 76 % (16-70) Monocytes % 9 % (0-8) Metamyelocytes 3 % (0-1) Imaging Last Impressions Port Line Insertion 10/30/16 0000 Signed Impressions: Service Date/Time: Sunday, October 30, 2016 11:35 - CONCLUSION: Uncomplicated ultrasound and fluoroscopic guided implanted central venous port catheter placement as described in detail above. An 8 [employer] port was placed. Toribio Bain MD Abdomen/Pelvis CT 10/26/16 0000 Signed Impressions: Service Date/Time: October 09:49 - CONCLUSION: 1. Stable CT scan of the abdomen and pelvis compared to the prior examination. There is no evidence of a subcapsular hematoma or significant free fluid in the right paracolic gutter. There is a trace of fluid in the pelvis which is about the same or mildly improved compared to the prior study. 2. Diverticulosis of the sigmoid colon without inflammatory changes. 3. Right lower lung atelectasis without significant change. Willi Terry MD Lower Extremity Ultrasound 10/25/16 1908 Signed Impressions: Service Date/Time: Tuesday, October 25, 2016 19:20 - CONCLUSION: 1. No DVT in either lower extremity. 2. Small Eastman's cyst on the left. Nico Maya MD CT Angiography 10/25/16 0739 Signed Impressions: Service Date/Time: Tuesday, October 25, 2016 20:35 - CONCLUSION: 1. No evidence for pulmonary embolism. 2. Minimal bibasilar patchy densities likely atelectasis. 3. Small right pleural effusion. 4. Enlarged heterogeneous liver containing multiple areas of low attenuation, concerning for internal hemorrhage/contusion. Nico Maya MD Chest X-Ray 10/25/161824 Signed Impressions: Service Date/Time: Tuesday, October 25, 2016 19:22 - CONCLUSION: Diminished lung volumes with clear lungs. Nico Maya MD PE at Discharge GENERAL: NAD SKIN: Warm and dry. HEAD: Normocephalic. EYES: No scleral icterus. No injection or drainage. NECK: Supple, trachea midline. No JVD or lymphadenopathy. CARDIOVASCULAR: Regular rate and rhythm without murmurs, gallops, or rubs. Infusion port in place right chest RESPIRATORY: Breath sounds equal bilaterally. No accessory muscle use. GASTROINTESTINAL: Abdomen soft, mildly tender RUQ, nondistended. +BS MUSCULOSKELETAL: No cyanosis, or edema. BACK: Nontender without obvious deformity. No CVA tenderness. Hospital Course Patient was admitted initially for what was thought to be liver Hemorrhage imaging as he presented with right upper quadrant abdominal pain. Serial H&H was initiated and surgery was consulted. However after the case was reviewed by interventional radiology, it was felt there was no evidence of hemorrhage in the liver. Patient's symptoms of abdominal pain improved. Secondary to a history of metastases adenocarcinoma of possible GI origin in the liver medical oncology was consulted as well as gastroenterology and patient underwent EGD on 10/30/16 followed by infusion port placement by interventional radiology. Tumor markers were obtained and were all elevated including CEA, alpha- fetoprotein and CA-19-9. Oral hypertensive was held secondary to hypotension and patient was started on IV fluid hydration with improvement of blood pressure. He was continued on his medication for anxiety. PT was consulted to treat and eval. GI and DVT prophylaxis will provided. With The finding of a hemorrhoid during EGD, patient was advised to take Benefiber 2tps daily. He was also advised to hold on oral hypertensive education and seen by PCP. Prior to discharge his vitals remained stable Pt Condition on Discharge: Stable Discharge Disposition: Disch w/ Home Health Serv Discharge Time: > 30 minutes Discharge Instructions DIET: Follow Instructions for: Heart Healthy Diet Activities you can perform: Regular-No Restrictions Follow up Referrals: Oncology PCP Follow-up - 1 Week New Medications: Walker with Front Wheels (Walker with Front Wheels) 1 Mis Mis 1 EA .ROUTE DIRECTED #1 Ref 0 EA Continued Medications: Aspirin DR (Aspir-81) 81 Mg Tabdr Clopidogrel (Clopidogrel) 75 Mg Tab 75 MG PO DAILY Blood Clot Prevention #30 Ref 0 TAB Diphenhydramine (Diphenhydramine) 25 Mg Cap 25 MG PO HS PRN INSOMNIA Ref 0 CAP Simvastatin (Simvastatin) 40 Mg Tab 40 MG PO HS Cholesterol Management #30 Ref 0 TAB Trazodone (Trazodone) 50 Mg Tab 50 MG PO HS Control Depression #30 Ref 0 TAB Discontinued Medications: Hydrocodone-Acetaminophen (Hydrocodone-Acetaminophen) 5-325 mg Tab 1 TAB PO Q8HR PRN PAIN #30 Ref 0 TAB Tramadol (Tramadol) 50 Mg Tab 50 MG PO Q4H PRN PAIN Ref 0 TAB Additional Information Outpatient PET scan next week Hold oral hypertensive medication until seen by PCP Nico Renee MD Oct 31, 2016 09:27
--- NOTE | 2016-10-31 11:34 | PD.ONC.PN ---
Subjective Subjective Remarks Afebrile overnight. Patient eager to go home. He denies any complaints. at bedside. Objective Data Date Time Temp Pulse Resp B/P Pulse Ox O2 Delivery O2 Flow Rate FiO2 10/31/16 08:16 93 21 10/31/16 07:40 96.6 78 18 104/60 94 10/31/16 04:00 98.5 81 16 101/57 95 10/31/16 00:00 99.0 84 18 121/58 95 10/30/16 20:00 96.5 83 16 101/55 95 10/30/16 17:35 92/58 10/30/16 15:50 95.4 81 20 88/56 92 10/30/16 15:50 95.4 81 20 88/56 92 10/30/16 15:10 87 16 115/76 96 10/30/16 15:00 78 16 92/60 92 10/30/16 14:51 97.9 79 16 90/58 93 10/30/16 13:00 97.8 83 20 87/63 92 10/31/16 10/31/16 10/31/16 07:00 15:00 23:00 Intake Total 1949 ml 720 ml Output Total 300 ml 300 ml Balance 1649 ml 420 ml Result Diagram: 10/30/16 0556 10/30/16 0556 Administered Medications Medications (Trade) Dose Ordered Sig/Yobani Route PRN Reason Start Time Stop Time Status Last Admin Dose Admin IV Flush (NS Flush) 2 ml BID FLUSH 10/26/16 09:00 10/31/16 08:38 Pravastatin Sodium (Pravachol) 80 mg HS PO CM 10/26/16 21:00 10/30/16 19:47 Temazepam (Restoril) 15 mg HS PRN PO INSOMNIA 10/26/16 10:00 10/30/16 22:08 Trazodone HCl (Desyrel) 50 mg HS PO 10/27/16 21:00 10/30/16 19:47 Metoclopramide HCl 5 mg 5 mg Q8HR IV PUSH 10/28/16 14:00 10/31/16 05:43 Sodium Chloride (NS 1000 ml Inj) 1,000 ml @ 125 mls/hr Q8H IV 10/29/16 21:45 10/31/16 07:47 Objective Remarks GENERAL: Elderly male, sitting up in bed, dressed in street clothes, ready to go. SKIN: Warm and dry. HEAD: Normocephalic. EYES: No injection or drainage. NECK: Supple, trachea midline. CARDIOVASCULAR: Regular rate and rhythm RESPIRATORY: Breath sounds equal bilaterally. No accessory muscle use. GASTROINTESTINAL: Abdomen soft, mildly tender throughout, nondistended. EXTREMITIES: No cyanosis. bilateral 2-3+ pitting edema. NEUROLOGICAL: awake and alert, normal speech. moving all extremities Assessment/Plan Problem List: (1) Metastatic adenocarcinoma of unknown origin Status: Acute Plan: 10/31: follow up in clinic on 11/08/16 10/30/16: Panendoscopy showed esophageal mass, duodenal ulcer. +port placement --CT guided liver biopsy showed adenocarcinoma of likely GI origin --CEA mildly elevated at 10 --CA 19-9 elevated at 53.8 (2) Dependent edema Status: Acute Plan: --echo resulted and in chart. --BNP elevated --no known h/o heart failure. --also w/ Dyspnea and chest discomfort. -- CTA was negative for pulmonary embolism. --u/s LE showed no DVT Assessment 70y/o male with metastatic adenocarcinoma of likely a GI origin admitted with abdominal pain, dyspnea and lower extremity edema. Plan 1. clear for discharge--follow up in clinic on 11/08/16. Attending Statement The exam, history, and the medical decision-making described in the above note were completed with the assistance of the mid-level provider. I reviewed and agree with the findings presented. I attest that I had a [id number] encounter with the patient on the same day, and personally performed and documented my assessment and findings in the medical record. Sofya Thomas Oct 31, 2016 11:33 Krishna Pruitt MD Oct 31, 2016 22:37
--- NOTE | 2016-10-31 11:36 | HHI.PR ---
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 Valentin Anguiano MD Oct 31, 2016 11:36
[2016-10-31] MEDS ORDERED: WALKER WHEELS/F1 MIS (11:50)
[2016-10-31 11:56] VITALS: BP 86/58; PULSE 88; RESP 16; TEMP 97.5; O2SAT 97
[2016-10-31 12:00] VITALS: BP 108/58; PULSE 80; RESP 20; TEMP 96.3; O2SAT 97
== END 2016-10-31 12:08 | disposition home health service (06) | DRG 436 ==
LOC: NEPA 18:11 → NEDA 21:58 → HIMW 10-26 03:10 → HOCA 10-27 17:06
PROVIDERS: ADMIT Hospitalist; ATTEND Hospitalist
PROC: 0DBP8ZX Excision of Rectum, Via Natural or Artificial Opening Endoscopic, Diagnostic (ICD-10-PCS; 2016-10-30)
PROC: 0JH60XZ Insertion of Tunneled Vascular Access Device into Chest Subcutaneous Tissue and Fascia, Open Approach (ICD-10-PCS; 2016-10-30)
PROC: 02HV33Z Insertion of Infusion Device into Superior Vena Cava, Percutaneous Approach (ICD-10-PCS; 2016-10-30)
PROC: B548ZZA Ultrasonography of Superior Vena Cava, Guidance (ICD-10-PCS; 2016-10-30)
PROC: 0DB38ZX Excision of Lower Esophagus, Via Natural or Artificial Opening Endoscopic, Diagnostic (ICD-10-PCS; principal; 2016-10-30 14:15)
PROC: 0DB68ZX Excision of Stomach, Via Natural or Artificial Opening Endoscopic, Diagnostic (ICD-10-PCS; 2016-10-30 14:15)
DX: C78.7 Secondary malignant neoplasm of liver and intrahepatic bile duct (principal); J98.11 Atelectasis; I95.9 Hypotension, unspecified; C15.5 Malignant neoplasm of lower third of esophagus; K26.9 Duodenal ulcer, unspecified as acute or chronic, without hemorrhage or perforation; I10 Essential (primary) hypertension; K29.70 Gastritis, unspecified, without bleeding; K44.9 Diaphragmatic hernia without obstruction or gangrene; K57.30 Diverticulosis of large intestine without perforation or abscess without bleeding; K62.1 Rectal polyp; R10.11 Right upper quadrant pain; K64.8 Other hemorrhoids; R60.0 Localized edema; E66.9 Obesity, unspecified; R63.4 Abnormal weight loss; Z68.36 Body mass index [BMI] 36.0-36.9, adult; E78.5 Hyperlipidemia, unspecified; Z86.73 Personal history of transient ischemic attack (TIA), and cerebral infarction without residual deficits; Z79.02 Long term (current) use of antithrombotics/antiplatelets; Z79.82 Long term (current) use of aspirin; Z87.891 Personal history of nicotine dependence; F41.9 Anxiety disorder, unspecified
CPT/HCPCS: 36561; 71010; 71275; 74176; 74177; 76937; 77001; 80048; 80053; 82105; 82378; 82550; 82552; 83735; 83880; 84484; 85007; 85014; 85018; 85025; 85027; 85379; 85610; 85730; 86301; 87641; 88305; 88312; 93005; 93306; 93970; 96360; 99152; 99153; 99203; 99205; C1788; G0463; J1642; J1885; J2250; J2765; J3010; J3370; J7030; J7040; J7050; J7120; Q9967

== ENCOUNTER 2016-12-09 15:45 | Inpatient (IN) | payer MEDICARE, BC ==
[~2016-12-09] VITALS: Ht 172.7 cm; Wt 124.2 kg
[2016-12-09] VITALS (8 sets, daily range): BP systolic 97–159; BP diastolic 53–67; PULSE 80–94; RESP 14–23; TEMP 96.2–97.8; O2SAT 95–100
[~2016-12-09 15:45] MED LIST: ASPI81TA81; CLOP75TA PO; DIPH25CA PO; LOSA50TA PO; SIMV40TA PO; TRAZ50TA12 PO; WALKER WHEELS/F1 MIS
[2016-12-09] MEDS ORDERED: PANTOPRAZOLE SODIUM 40 MG VIAL IVP ONE (16:15)
--- NOTE | 2016-12-09 16:16 | PD ---
HPI Chief Complaint: Abnormal Results Time Seen by Provider: 16:15 Travel History International Travel<30 days: No Contact w/Intl Traveler<30days: No Traveled to known affect area: No History of Present Illness HPI 71-year-old male presents to the emergency department from nursing facility for evaluation of low hemoglobin. The patient denies any complaints at this time. According to EMS, he had temperature for 100.2, but no fever at this time. Patient denies any fevers or chills. He reports chronic shortness of breath, but no worsening shortness of breath. He denies any chest pain. No abdominal pain. No nausea or vomiting. He denies any black, tarry stools or blood in his stool. Patient denies being dizzy or lightheaded. Patient has a history of metastatic adenocarcinoma of likely GI origin. He also has a history of CVA. Patient has bilateral lower extremity edema which is chronic for him. PFSH Past Medical History Chemotherapy: Yes Cerebrovascular Accident: Yes Hypertension: Yes Neurologic: No Migraines: No Seizures: No Past Surgical History Appendectomy: Yes Cardiac Surgery: No Ear Surgery: No Endocrine Surgery: No Eye Surgery: No Genitourinary Surgery: No Gynecologic Surgery: No Oral Surgery: No Thoracic Surgery: No Social History Alcohol Use: No Tobacco Use: Yes Substance Use: No Allergies-Medications (Allergen,Severity, Reaction): Coded Allergies: No Known Allergies (Unverified , 10/25/16) Reported Meds & Prescriptions Reported Meds & Active Scripts Active Reported Oxycodone (Oxycodone HCl) 5 Mg Tab 5 Mg PO Q4H PRN Metoprolol Tartrate 25 Mg Tab 25 Mg PO BID Remeron (Mirtazapine) 15 Mg Tab 15 Mg PO HS Diphenhydramine (Diphenhydramine HCl) 25 Mg Cap 25 Mg PO HS PRN Review of Systems Except as stated in HPI: all other systems reviewed are Neg Physical Exam Narrative GENERAL: Well-developed well-nourished chronically ill elderly male patient, Afebrile. SKIN: Warm and dry. HEAD: Normocephalic. Atraumatic. EYES: No scleral icterus. No injection or drainage. NECK: Supple, trachea midline. No JVD or lymphadenopathy. CARDIOVASCULAR: Regular rate and rhythm without murmurs, gallops, or rubs. RESPIRATORY: Breath sounds equal bilaterally. No accessory muscle use. Lungs sounds are clear to auscultation. GASTROINTESTINAL: Abdomen soft, non-tender, nondistended. No abdominal pain to palpation. MUSCULOSKELETAL: No cyanosis, or edema. BACK: Nontender without obvious deformity. No CVA tenderness. RECTAL EXAM: No masses or tenderness, stool is brown. Hemoccult is grossly positive. Rectal exam was done with nurse at bedside. Data Data Last Documented VS Vital Signs Date Time Temp Pulse Resp B/P Pulse Ox O2 Delivery O2 Flow Rate FiO2 12/09/16 17:24 86 16 114/67 Room Air 12/09/16 16:18 95 12/09/16 16:00 97.7 Orders Complete Blood Count With Diff (12/09/16 16:11) Comprehensive Metabolic Panel (12/09/16 16:11) Prothrombin Time / Inr (Pt) (12/09/16 16:11) Act Partial Throm Time (Ptt) (12/09/16 16:11) Type And Screen (12/09/16 16:11) Ecg Monitoring (12/09/16 16:11) Iv Access Insert/Monitor (12/09/16 16:11) Oximetry (12/09/16 16:11) Pantoprazole Inj (Protonix Inj) (12/09/16 16:15) Sodium Chloride 0.9% Flush (Ns Flush) (12/09/16 16:15) Chest, Single Ap (12/09/16 ) Electrocardiogram (12/09/16 ) Blood Culture (12/09/16 16:11) Lactic Acid Sepsis Protocol (12/09/16 16:11) Sodium Chlorid 0.9% 500 Ml Inj (Ns 500 M (12/09/16 16:30) Red Blood Cells (Rbc) (12/09/16 17:53) Blood Product Administration .UPON TRANSFUSION (12/09/16 17:53) Sodium Chlor 0.9% 250 Ml Inj (Ns 250 Ml (12/09/16 18:00) Labs Laboratory Tests Test 12/09/16 16:15 White Blood Count 1.5 TH/MM3 Red Blood Count 2.25 MIL/MM3 Hemoglobin 7.5 GM/DL Hematocrit 21.6 % Mean Corpuscular Volume 96.1 FL Mean Corpuscular Hemoglobin 33.2 PG Mean Corpuscular Hemoglobin 34.5 % Concent Red Cell Distribution Width 18.0 % Platelet Count 207 TH/MM3 Mean Platelet Volume 9.7 FL Neutrophils (%) (Auto) % Lymphocytes (%) (Auto) % Monocytes (%) (Auto) % Eosinophils (%) (Auto) % Basophils (%) (Auto) % Neutrophils # (Auto) TH/MM3 Lymphocytes # (Auto) TH/MM3 Monocytes # (Auto) TH/MM3 Eosinophils # (Auto) TH/MM3 Basophils # (Auto) TH/MM3 CBC Comment AUTO DIFF Differential Total Cells 100 Counted Neutrophils % (Manual) 2 % Band Neutrophils % 1 % Lymphocytes % 65 % Monocytes % 24 % Eosinophils % 1 % Basophils % 3 % Neutrophils # (Manual) 0.0 TH/MM3 Nucleated Red Blood Cells 2 /100 WBC Differential Comment FINAL DIFF MANUAL Blastocytes 4 % Platelet Estimate NORMAL Platelet Morphology Comment NORMAL Prothrombin Time 15.0 SEC Prothromb Time International 1.3 RATIO Ratio Activated Partial 31.5 SEC Thromboplast Time Sodium Level 141 MEQ/L Potassium Level 3.5 MEQ/L Chloride Level 107 MEQ/L Carbon Dioxide Level 24.3 MEQ/L Anion Gap 10 MEQ/L Blood Urea Nitrogen 32 MG/DL Creatinine 1.06 MG/DL Estimat Glomerular Filtration 69 ML/MIN Rate Random Glucose 97 MG/DL Lactic Acid Level 2.1 mmol/L Calcium Level 7.3 MG/DL Protein Corrected Calcium 8.5 MG/DL Total Bilirubin 1.1 MG/DL Aspartate Amino Transf 443 U/L (AST/SGOT) Alanine Aminotransferase 160 U/L (ALT/SGPT) Alkaline Phosphatase 302 U/L Total Protein 4.9 GM/DL Albumin 1.4 GM/DL Blood Type B POSITIVE Antibody Screen NEGATIVE Blood Bank Comment [facility] Medical Decision Making Medical Screen Exam Complete: Yes Emergency Medical Condition: Yes Medical Record Reviewed: Yes Interpretation(s) Last Impressions Chest X-Ray 12/09/16 0000 Signed Impressions: Service Date/Time: Friday, December 09, 2016 16:24 - CONCLUSION: Left basilar atelectasis. Riley Bianchi MD Differential Diagnosis GI bleed versus anemia of chronic disease versus electrolyte abnormality versus dehydration Narrative Course 77-year-old male presents to the emergency department from nursing facility for evaluation of low hemoglobin. Patient denies any complaints at this time. Hemoccult is grossly positive. EKG, CBC, CMP, PTT, PTT/INR, type and screen, blood cultures 2, lactic acid, chest x-ray are ordered and pending. Patient is given Protonix 40 mg IV push and normal saline 500 mL bolus. EKG shows sinus rhythm, heart rate 83, no acute ST changes. CBC shows a WBC of 1.5, hemoglobin 7.5 hematocrit 21.6, neutrophil count is 0.0. CMP shows protein corrected calcium 8.5, elevated liver enzymes which do appear chronic for patient, bilirubin 1.1, AST 443, LT 160, alkaline phosphatase 302. Lactic Acid is 2.1. PT is 15.0, INR 1.3, PTT 31.5. Chest x-ray shows left basilar atelectasis. Patient will be transfused with 1 unit packed red blood cells. [facility] is paged for admission. Dr. Doyle accepted admission. Aleah Gusman Dec 09, 2016 16:16
[2016-12-09] MEDS ORDERED: REME15TA PO (16:28)
[2016-12-09] MEDS ORDERED: METO25TA3 PO (16:28)
[2016-12-09] MEDS ORDERED: OXYC-392 PO (16:28)
--- NOTE | 2016-12-09 16:29 | PD ---
Physical Exam Date Seen by Provider: Dec 09, 2016 Narrative Patient was sent to us from the detention because of anemia. Data Data Last Documented VS Vital Signs Date Time Temp Pulse Resp B/P Pulse Ox O2 Delivery O2 Flow Rate FiO2 12/09/16 16:18 81 23 95 Room Air 12/09/16 16:00 97.7 100/61 Orders Complete Blood Count With Diff (12/09/16 16:11) Comprehensive Metabolic Panel (12/09/16 16:11) Prothrombin Time / Inr (Pt) (12/09/16 16:11) Act Partial Throm Time (Ptt) (12/09/16 16:11) Type And Screen (12/09/16 16:11) Ecg Monitoring (12/09/16 16:11) Iv Access Insert/Monitor (12/09/16 16:11) Oximetry (12/09/16 16:11) Pantoprazole Inj (Protonix Inj) (12/09/16 16:15) Sodium Chloride 0.9% Flush (Ns Flush) (12/09/16 16:15) Chest, Single Ap (12/09/16 ) Electrocardiogram (12/09/16 ) Blood Culture (12/09/16 16:11) Lactic Acid Sepsis Protocol (12/09/16 16:11) Sodium Chlorid 0.9% 500 Ml Inj (Ns 500 M (12/09/16 16:30) MDM Supervised Visit with KASIE: Yes Narrative Course I, Dr. Giron, have reviewed the advance practice practitioner's documentation and am in agreement, met with the patient face to face, made the diagnosis, and the medical decision making was done by me. *My assessment and Findings: This is a chronically ill-appearing man. Merle Giron MD Dec 09, 2016 16:29
[2016-12-09] MEDS ORDERED: SODIUM CHLORID 0.9% 500 ML INJ 500 ML IV ONE (16:30)
[2016-12-09 16:46] LABS: HEMATOCRIT 21.6 % (39.0-51.0); MEAN CELL VOLUME 96.1 FL (80.0-100.0); MEAN CORPUSCULAR HEMOGLOBIN 33.2 PG (27.0-34.0); MEAN CORPUSCULAR HGB CONC 34.5 % (32.0-36.0); PLATELET COUNT 207 TH/MM3 (150-450); RED BLOOD COUNT 2.25 MIL/MM3 (4.50-5.90); WHITE BLOOD COUNT 1.5 TH/MM3 (4.0-11.0)
[2016-12-09 16:53] LABS: HEMO FLAGS AUTO DIFF
--- NOTE | 2016-12-09 17:00 | RADRPT ---
EXAM DATE/TIME: 12/09/2016 16:24 [facility] COMPARISON: No previous studies available for comparison. INDICATIONS : Shortness of breath. MEDICAL HISTORY : None. SURGICAL HISTORY : Port placement. ENCOUNTER: Initial ACUITY: 1 day PAIN SCORE: 0/10 LOCATION: Bilateral chest FINDINGS: Shallow lung volumes. Right-sided port catheter with tip overlying the SVC. Left basilar atelectasis. CONCLUSION: Left basilar atelectasis. Riley Bianchi MD on December 09, 2016 at 16:58 Board Certified Radiologist. This report was verified electronically.
[2016-12-09 17:06] LABS: APTT (PATIENT) 31.5 SEC (24.3-30.1); INTERNATIONAL NORMALIZED RATIO 1.3 RATIO
[2016-12-09] MEDS: SODIUM CHLORIDE 0.9% FLUSH 5 ML FLUSH IVF PRN ×2 (17:12→17:22)
[2016-12-09 17:20] LABS: BICARBONATE 24.3 MEQ/L (21.0-32.0); CALCIUM-PROTEIN CORRECTED 8.5 MG/DL (8.5-10.1); POTASSIUM 3.5 MEQ/L (3.5-5.1); TOTAL BILIRUBIN ADULT 1.1 MG/DL (0.2-1.0)
[2016-12-09 17:37] LABS: BANDS 1 % (0-6); BASOPHILS 3 % (0-2); BLASTS 4 % (0-0); CORRECTED NUCLEATED RBC 2 /100 WBC (0-0); EOSINOPHILS 1 % (0-4); POLYS (SEG NEUTROPHILS) 2 % (16-70); WBC DIFF SAMPLE 100
[2016-12-09 17:39] LABS: PLATELET ESTIMATE SMEAR NORMAL (NORMAL); PLATELET MORPHOLOGY NORMAL (NORMAL); SCAN/DIFF FINAL DIFF MANUAL
[2016-12-09] MEDS ORDERED: ONDANSETRON HCL 4 MG/2 ML VIAL IVP PRN (18:00)
[2016-12-09] MEDS ORDERED: SENNOSIDES 8.6 MG TAB PO PRN (18:00)
[2016-12-09] MEDS ORDERED: MAGNESIUM HYDROXIDE SUSP 30 ML CUP PO PRN (18:00)
[2016-12-09] MEDS ORDERED: SODIUM CHLOR 0.9% 250 ML INJ 250 ML IV ONE (18:00)
[2016-12-09] MEDS ORDERED: NALOXONE HCL 0.4 MG/ML AMP IV PRN (18:00)
[2016-12-09] MEDS ORDERED: SODIUM CHLORIDE 0.9% FLUSH 5 ML FLUSH FLUSH PRN (18:00)
[2016-12-09] MEDS: SODIUM CHLOR 0.9% 1000 ML INJ 1,000 ML IV SCH (18:05)
[2016-12-09] MEDS ORDERED: BISACODYL 10 MG SUPP PR PRN (18:15)
[2016-12-09] MEDS ORDERED: DOCUSATE SODIUM 100 MG CAP PO PRN (18:15)
[2016-12-09] MEDS ORDERED: diphenhydrAMINE HCL 25 MG CAP PO PRN ×2 (18:15→20:45)
[2016-12-09] MEDS ORDERED: MORPHINE SULFATE 4 MG/ML INJ IV PRN (18:15)
[2016-12-09] MEDS ORDERED: THIAMINE HCL 100 MG TAB PO ONE (18:30)
[2016-12-09 18:35] LABS: LACTIC ACID GHOST NOT REPORTABLE
[2016-12-09] MEDS ORDERED: Vancomycin Consult Pharmacy 1 EA OTHER SCH (19:15)
--- NOTE | 2016-12-09 19:15 | HHI.HP ---
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 Pt with no complaints. Per EMS, Temp 100.2 during transport. On arrival, BP 100/61, HR 82, O2 sat 95% on RA, Afebrile. WBC 1.5, previously 3.5 on 11/27/16. Hgb 7.5, previously 10.1 on 11/27/16. Platelets 207. Neutrophils 0. Hemoccult + on exam. Chemistry at baseline. Lacti Acid 2.1. Ca 7.3. LFTs elevated, mildly increased from previous labs. INR 1.3. CXR w/ left basilar atelectasis. 1u pRBC ordered in ER, pending transfusion. Follows w/ Dr. Pruitt as outpatient, consult placed by ER doc. S/p Blood Cultures and Cefepime in ER. Review of Systems Except as stated in HPI: all other systems reviewed are Neg ROS: 14 point review of systems otherwise negative. 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 No h/o DM or CAD Social History PAST SOCIAL HISTORY: History of tobacco abuse. Negative for alcohol or drugs. Physical Exam Vital Signs Vital Signs Date Time Temp Pulse Resp B/P Pulse Ox O2 Delivery O2 Flow Rate FiO2 3/4/17 18:00 97.8 87 16 159/64 Room Air 12/09/16 17:24 86 16 114/67 Room Air 12/09/16 17:00 80 17 97/56 Room Air 12/09/16 16:30 80 18 103/53 Room Air 12/09/16 16:18 81 23 95 Room Air 12/09/16 16:14 16 95 Room Air 12/09/16 16:00 97.7 82 23 100/61 95 Physical Exam PE: GENERAL: Elderly white male in no acute distress. HEENT: PERRLA, EOMI. No scleral icterus or conjunctival pallor. No lid lag or facial droop. CARDIOVASCULAR: Regular rate and rhythm. No obvious murmurs to auscultation. No chest tenderness to palpation. RESPIRATORY: No obvious rhonchi or wheezing. Clear to auscultation. Breath sounds equal bilaterally. GASTROINTESTINAL: Abdomen soft, non-tender, nondistended. BS normal. MUSCULOSKELETAL: Extremities without clubbing, cyanosis, or edema. No obvious deformities. NEUROLOGICAL: Awake, alert and oriented x4. No focal neurologic deficits. Moving both upper and lower extremities spontaneously. Laboratory Laboratory Tests Test 12/09/16 12/09/16 16:15 18:36 White Blood Count 1.5 Red Blood Count 2.25 Hemoglobin 7.5 Hematocrit 21.6 Mean Corpuscular Volume 96.1 Mean Corpuscular Hemoglobin 33.2 Mean Corpuscular Hemoglobin 34.5 Concent Red Cell Distribution Width 18.0 Platelet Count 207 Mean Platelet Volume 9.7 Neutrophils (%) (Auto) Lymphocytes (%) (Auto) Monocytes (%) (Auto) Eosinophils (%) (Auto) Basophils (%) (Auto) Neutrophils # (Auto) Lymphocytes # (Auto) Monocytes # (Auto) Eosinophils # (Auto) Basophils # (Auto) CBC Comment AUTO DIFF Differential Total Cells 100 Counted Neutrophils % (Manual) 2 Band Neutrophils % 1 Lymphocytes % 65 Monocytes % 24 Eosinophils % 1 Basophils % 3 Neutrophils # (Manual) 0.0 Nucleated Red Blood Cells 2 Differential Comment FINAL DIFF MANUAL Blastocytes 4 Platelet Estimate NORMAL Platelet Morphology Comment NORMAL Prothrombin Time 15.0 Prothromb Time International 1.3 Ratio Activated Partial 31.5 Thromboplast Time Sodium Level 141 Potassium Level 3.5 Chloride Level 107 Carbon Dioxide Level 24.3 Anion Gap 10 Blood Urea Nitrogen 32 Creatinine 1.06 Estimat Glomerular Filtration 69 Rate Random Glucose 97 Lactic Acid Level 2.1 Calcium Level 7.3 Protein Corrected Calcium 8.5 Total Bilirubin 1.1 Aspartate Amino Transf 443 (AST/SGOT) Alanine Aminotransferase 160 (ALT/SGPT) Alkaline Phosphatase 302 Total Protein 4.9 Albumin 1.4 Blood Type B POSITIVE B POSITIVE Antibody Screen NEGATIVE Crossmatch Leukocyte-Reduced Red Blood Cells Blood Bank Comment Date/Time Procedure Status Source Growth 12/09/16 16:20 Aerobic Blood Culture Received Blood Peripheral Pending 12/09/16 16:20 Anaerobic Blood Culture Received Blood Peripheral Pending Result Diagram: 12/09/16 1615 12/09/16 1615 Assessment and Plan Problem List: (1) GI bleed ICD Code: K92.2 Status: Acute (2) Anemia ICD Code: D64.9 Status: Acute (3) Sepsis ICD Code: A41.9 Status: Acute (4) Neutropenic fever ICD Code: D70.9 Status: Acute (5) Esophageal cancer ICD Code: C15.9 Status: Acute Assessment and Plan A/P: 1. GI Bleed: Sent to ER from [facility] for low hemoglobin on outpatient labs, Hgb 7.5 currently, previously 10.1 on 11/27/16, Hemoccult+ on exam. S/p Protonix in ER. Continue w/ Protonix IV q12h. Consult GI for further evaluation. Recent admit for abdominal pain found to have esophageal mass w/ liver mets, s/p eval by Dr. Trimble and EGD w/ biopsy 10/30/16. Will consult GI for further eval. 2. Anemia: Secondary to above, Hemoccult +. Hgb 7.5, 1u pRBC ordered in ER, pending transfusion. Recheck Hgb/Hct, transfuse as needed. 3. Sepsis: Temp 100.2 per EMS, afebrile since arrival, RR 20, WBC 1.5. Source -unclear. CXR w/ left basilar atelectasis, possibly early PNA, images reviewed by me. Check U/a. S/p Blood Cultures and IV Cefepime in ER. Follow up Cultures, follow up U/a, continue IV Cefepime, add IV Vanc. 4. Neutropenic Fever: Neutrophil 0. WBC 1.5. Fever per EMS of 100.5. Place on precautions. 5. Esophageal CA: Stage IV. Extensive liver metastasis, s/p EGD w/ biopsy by Dr. Trimble confirming adenocarcinoma of the esophagus. Following w/ Dr. Pruitt, consulted by ER physician. 6. DVT Prophylaxis: Pharmacologic contraindication in light of GI Bleed, Anemia. 7. Social work for d/c planning as needed. 8. Case discussed w/ ER physician at length. Physician Certification 2 Midnight Certification Type: Admission for Inpatient Services Order for Inpatient Services The services are ordered in accordance with Medicare regulations or non- Medicare payer requirements, as applicable. In the case of services not specified as inpatient-only, they are appropriately provided as inpatient services in accordance with the 2-midnight benchmark. Estimated LOS (days): 2 days is the estimated time the patient will need to remain in the hospital, assuming treatment plan goals are met and no additional complications. Post-Hospital Plan: Not yet determined Lainey Gooden MD Dec 09, 2016 19:15
[2016-12-09] MEDS ORDERED: ACETAMINOPHEN 325 MG TAB PO PRN (20:45)
[2016-12-09] MEDS: MIRTAZAPINE 15 MG TAB PO SCH (21:30)
[2016-12-09] MEDS: METOPROLOL TARTRATE 25 MG TAB PO SCH (21:31)
[2016-12-09] MEDS: SODIUM CHLORIDE 0.9% FLUSH 5 ML FLUSH FLUSH SCH (21:32)
[2016-12-09] MEDS: CEFEPIME INJ 2,000 MG in SODIUM CHLORIDE 0.9% INJ 100 ML IV SCH (21:32)
[2016-12-09] MEDS: VANCOMYCIN INJ 2,500 MG in SODIUM CHLORID 0.9% 500 ML INJ 500 ML IV SCH (22:03)
[2016-12-09 23:37] LABS: BACTERIA, URINE RARE /hpf; BLOOD, URINE MOD (NEG); COMMENT (UR) CULT NOT INDICATED; CULTURE IF INDICATED CULT NOT INDICATED; GLUCOSE,URINE NEG (NEG); GRANULAR CAST, URINE 1 /lpf; KETONE, URINE NEG (NEG); MUCUS URINE FEW /lpf (OCC); NITRITE,URINE NEG (NEG); PH, URINE 5.5 (5.0-8.5); SQUAMOUS EPITHELIAL CELL URINE 1 /hpf (0-5); URINE COLOR YELLOW (YELLW/STRAW)
[2016-12-10] VITALS (11 sets, daily range): BP systolic 76–120; BP diastolic 42–70; PULSE 70–98; RESP 16–24; TEMP 96.5–100; O2SAT 91–100
[2016-12-10] MEDS: SODIUM CHLOR 0.9% 1000 ML INJ 1,000 ML IV SCH (03:53)
[2016-12-10] MEDS ORDERED: SODIUM CHLORID 0.9% 500 ML INJ 500 ML IV SCH (04:00)
[2016-12-10] MEDS: CEFEPIME INJ 2,000 MG in SODIUM CHLORIDE 0.9% INJ 100 ML IV SCH ×3 (05:25→21:48)
[2016-12-10 06:44] LABS: BICARBONATE 24.2 MEQ/L (21.0-32.0); CALCIUM-PROTEIN CORRECTED 8.4 MG/DL (8.5-10.1); TOTAL BILIRUBIN ADULT 1.1 MG/DL (0.2-1.0)
[2016-12-10 06:46] LABS: MEAN CELL VOLUME 93.9 FL (80.0-100.0); MEAN CORPUSCULAR HEMOGLOBIN 32.7 PG (27.0-34.0); MEAN CORPUSCULAR HGB CONC 34.8 % (32.0-36.0); PLATELET COUNT 195 TH/MM3 (150-450); RED BLOOD COUNT 2.12 MIL/MM3 (4.50-5.90); RED CELL DISTRIBUTION WIDTH 17.7 % (11.6-17.2); WHITE BLOOD COUNT 1.7 TH/MM3 (4.0-11.0)
[2016-12-10 06:52] LABS: HEMO FLAGS AUTO DIFF
[2016-12-10 06:54] LABS: HEMATOCRIT 19.9 % (39.0-51.0)
[2016-12-10 07:03] LABS: NEUTROPHIL # MANUAL DIFF 0.1 TH/MM3 (1.8-7.7); POLYS (SEG NEUTROPHILS) 5 % (16-70)
[2016-12-10 07:08] LABS: BANDS 2 % (0-6); BASOPHILS 2 % (0-2); BLASTS 1 % (0-0); CORRECTED NUCLEATED RBC 3 /100 WBC (0-0); EOSINOPHILS 1 % (0-4); MYELOCYTES 1 % (0-0); WBC DIFF SAMPLE 100
[2016-12-10 07:10] LABS: PLATELET ESTIMATE SMEAR NORMAL (NORMAL); PLATELET MORPHOLOGY ENLARGED (NORMAL)
[2016-12-10 07:11] LABS: KERATOCYTES OCC (NORMAL); SCAN/DIFF FINAL DIFF MANUAL
[2016-12-10] MEDS: METOPROLOL TARTRATE 25 MG TAB PO SCH ×2 (07:11→21:00)
[2016-12-10] MEDS ORDERED: THIAMINE HCL 100 MG TAB PO SCH (09:00)
[2016-12-10] MEDS: ACETAMINOPHEN 325 MG TAB PO PRN ×2 (09:34→21:49)
[2016-12-10] MEDS: PANTOPRAZOLE SODIUM 40 MG VIAL IV PUSH SCH ×2 (09:34→21:49)
--- NOTE | 2016-12-10 10:16 | HHI.PR ---
Subjective Remarks Patient with no complaints this morning. Hypotensive to 76/46. Hemoglobin this morning 6.9. Transfusing 2 units packed red blood cells. Patient denies dizziness or fatigue. Wishes to return to his senior living. Objective Vitals Vital Signs Date Time Temp Pulse Resp B/P Pulse Ox O2 Delivery O2 Flow Rate FiO2 12/10/16 05:00 97.7 70 18 94/56 94 12/10/16 03:42 97.9 70 16 85/42 96 12/10/16 01:19 98.5 71 16 76/46 100 12/10/16 00:58 99.3 72 16 79/45 92 12/10/16 00:00 98.6 71 19 89/50 91 12/09/16 22:00 96.2 94 20 104/65 100 12/09/16 19:24 89 14 100/57 100 Room Air 12/09/16 18:00 97.8 87 16 159/64 Room Air 12/09/16 17:24 86 16 114/67 Room Air 12/09/16 17:00 80 17 97/56 Room Air 12/09/16 16:30 80 18 103/53 Room Air 12/09/16 16:18 81 23 95 Room Air 12/09/16 16:14 16 95 Room Air 12/09/16 16:00 97.7 82 23 100/61 95 I/O 12/09/16 12/09/16 12/09/16 12/10/16 12/10/16 12/10/16 07:00 15:00 23:00 07:00 15:00 23:00 Intake Total 240 ml Balance 240 ml Intake Oral 240 ml # Voids 1 Result Diagram: 12/10/16 0545 12/10/16 0545 Imaging Last Impressions Chest X-Ray 12/09/16 0000 Signed Impressions: Service Date/Time: Friday, December 09, 2016 16:24 - CONCLUSION: Left basilar atelectasis. Riley Bianchi MD Objective Remarks Gen.: No acute distress Head: Normocephalic. Atraumatic. EENT: Pupils equal round and reactive to light. Nose without drainage. Airway intact. Throat without injection. Cardiovascular: Regular rate and rhythm. No murmurs, rubs or gallops. Respiratory: Lungs clear to auscultation bilaterally. No wheezes or rhonchi. Abdomen: Soft, nontender, nondistended. No peritoneal signs. Musculoskeletal: No gross deformities. No edema. Skin: No obvious rashes or erythema. Neuro: Sensory and motor grossly intact. Cranial nerves II through XII grossly intact. \ Psych: Appropriate mood and affect A/P Problem List: (1) GI bleed ICD Code: K92.2 Status: Acute (2) Anemia ICD Code: D64.9 Status: Acute (3) Sepsis ICD Code: A41.9 Status: Acute (4) Neutropenic fever ICD Code: D70.9 Status: Acute (5) Esophageal cancer ICD Code: C15.9 Status: Acute Assessment and Plan 1. GI Bleed: H/H this morning 6.9/19.9. Transfuse 2 units packed red blood cells Continue Protonix IV every 12 hours GI consulted Patient with known esophageal cancer and liver metastases, oncology consulted 2. Anemia Plan as above 3. Sepsis Chest x-ray with left basilar atelectasis, possibly early pneumonia UA within normal limits Blood cultures pending Continue cefepime, vancomycin 4. Neutropenic Fever Place on precautions 5. Esophageal CA Stage IV with extensive liver metastases Following with Dr. Pruitt, consulted 6. DVT Prophylaxis: Pharmacologic contraindication in light of GI Bleed, Anemia. 7. Social work for d/c planning as needed. Problem Qualifiers (1) Anemia: Jessica Cazares MD R3 Dec 10, 2016 10:16
[2016-12-10] MEDS ORDERED: diphenhydrAMINE HCL 25 MG CAP PO ONE (10:30)
[2016-12-10] MEDS ORDERED: FILGRASTIM 480 MCG/1.6 ML VIAL SQ ONE (10:45)
[2016-12-10 11:30] LABS: HEMATOCRIT 21.6 % (39.0-51.0)
[2016-12-10 11:38] LABS: REVIEW FLAG FINAL
--- NOTE | 2016-12-10 11:52 | MB ---
cc: MEGAN BRIGHT MD HEMATOLOGY/ONCOLOGY CONSULTATION DATE OF CONSULTATION: 12/10/2016 [facility] [id number] CONSULT REQUESTED BY: Hospitalist physician. REASON FOR CONSULTATION: Diagnosis of metastatic adenocarcinoma of GI primary (precise site of primary organ is not known). TREATMENT HISTORY TO DATE: The patient is status post two cycles of modified dose FOLFOX with the most recent cycle delivered on 11/27/2016. REASON FOR ADMISSION: Progressive anemia as noted on blood work performed at the patient's nursing facility. The patient is also noted to be leukopenic with an a absolute neutrophil count of 100. CHIEF COMPLAINT: Mr. Wilson reports feeling generally weak, he reports lower extremity swelling. He tells me he is not in pain but feels debilitated. He has not been able to stand up in about 2 or 3 weeks. HISTORY OF PRESENT ILLNESS: Mr. Wilson is a 71-year-old male who was diagnosed with metastatic malignancy of GI primary with extensive liver metastases. He initially presented to [facility] in I believe September 2016 complaining of difficulty breathing. At that time he underwent CT angiogram of the chest to rule out pulmonary embolism. However, was noted on the abdominal sections to have multiple liver masses which were bulky. No pulmonary emboli were identified. The shortness of breath was attributed to anemia secondary to iron deficiency. I am not certain of what was identified on his GI workup, however, the patient did undergo CT guided biopsy of the liver lesion which revealed adenocarcinoma of GI primary. The initial biopsy was performed at [facility]. The patient has since then been initiated on palliative systemic therapy with modified dose of FOLFOX. Two cycles have been delivered so far. Over the past pobk-[id number]-half the patient has been a [facility] of a pen[facility] facility due to frailty and inability to care for himself. I believe he has been undergoing some form of rehab. He was transferred to [facility] due to anemia, hemoglobin at a penitentiary facility was noted to be less than 7.5 gm/dl on 12/09/2016. Repeat blood work in our facility revealed hemoglobin of 7.5 gm/dl, this has dropped down to 6.9 gm/dl with hematocrit of 20% as of 12/10/2016. PAST MEDICAL HISTORY 1. Metastatic adenocarcinoma of GI primary. 2. Anemia related to iron deficiency. 3. Chemotherapy related to myelosuppression. 4. History of hypertension. 5. Reported history of CVA. PAST SURGICAL HISTORY 1. Appendectomy. 2. Port placement. 3. Liver biopsy. ALLERGIES NO KNOWN DRUG ALLERGIES. FAMILY HISTORY Mother had malignancy; ovarian cancer, brother of heart attack. Father is . SOCIAL HISTORY The patient is . He has three daughters, all of them are adults. He denies alcohol abuse. 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 CURRENT INPATIENT MEDICATIONS: 1. Filgrastim 480 mcg subcu x1 followed by 200 mcg daily subcu. 2. Cefepime 2000 milligrams IV q8 hours. 3. Vancomycin per pharmacy dosing. 4. Normal saline. 5. Tylenol 650 milligrams p.o. q6 hours as needed for fevers or chills. 6. Metoprolol 25 mg p.o. b.i.d. 7. Remeron 15 mg p.o. q. hs. 8. Naloxone 0.4 mg as needed. 9. Zofran 4 mg IV q6 hours 10. Oxycodone 5 mg p.o. q4. 11. Pantoprazole 40 milligrams IV, q12 hours. 12. Thiamine 100 milligrams p.o. daily. REVIEW OF SYSTEMS 13-point review of systems were obtained, the following are the pertinent positives: The patient reports generalized fatigue, weakness, inability to ambulate. He denies fevers or chills. He reports decreased appetite. HEENT: Denies headaches, blurry vision, difficulty swallowing or soreness in the throat. Respiratory: Denies cough, hemoptysis, pleuritic chest pain. Cardiovascular: Denies angina-like chest pain, PND, orthopnea, palpitations. He does report chronic lower extremity edema. GI: Reports nausea, denies vomiting, diarrhea, hematochezia, melena. : No complaints. LATHE SPOTTER: Reports generalized weakness, cannot identify focal sensorimotor deficits. Musculoskeletal: Generalized weakness and decreased muscle mass. Skin: No complaints. PHYSICAL EXAMINATION Vital signs: Temperature 97.3 degrees Fahrenheit, heart rate 73 beats per minute, respiratory rate 24 breaths per minute, blood pressure 96/51. O2 sat 100% on room air. General physical appearance: Mr. Wilson is a very pleasant 71 year-old male. He is laying in bed and appears to be frail and chronically ill. HEENT: Head atraumatic, normocephalic, conjunctive are pale, sclerae are anicteric, EOMI, PERRLA, oral exam dry mucous membranes, he has an ulcerated lesion which is scabbed over on the lower lip. Neck exam: No palpable cervical or supraclavicular lymphadenopathy. He has a right-sided infusion port. Respiratory: Decreased bibasilar breath sounds. Cardiovascular: Regular rate and rhythm, S1-S2. No obvious murmurs, rubs or gallops. Abdominal exam: Protuberant, soft and nontender, nondistended palpable organ enlargement. Lower extremities: Pitting pretibial edema tracking bilaterally from his feet, all the way up to his thighs. Skin: He has generalized anasarca. LABORATORY FINDINGS Blood work dated 12/10/2016: WBC count 1.7, absolute neutrophil count 100, hemoglobin 6.9 gm/dl, hematocrit 20%, platelet count 195. Blast cells present in circulation. Chemistries: Sodium 144, potassium 3, chloride 110. Bicarbonate 24.2, BUN 31, creatinine 1, EGFR 73, random glucose 80, calcium 6.7, albumin 1.1. Corrected calcium 8.4, total bilirubin 1.1, AST 264, ALT 117, alkaline phosphatase 224, total protein 4. Coags, PT 15, PTT 31.5. The urine studies revealed no evidence of nitrate, bilirubin or WBCs. Culture not indicated. IMAGING STUDIES Chest x-ray dated 12/09/2016: Left basilar atelectasis. ASSESSMENT Mr. Wilson is a 71 year-old male with a diagnosis of metastatic malignancy of GI primary, upper GI primary suspected. He was diagnosed in October 2016. He has thus far received two cycles of modified dose FOLFOX. He unfortunately has a very poor performance status and over the past xygv-why-[id number]-half or so has been a resident of a penitentiary facility because he has been unable to care for himself. The patient was transferred to [facility] from his penitentiary facility due to progressive anemia. He presented like this in the past and has required transfusions. The likely cause of the anemia is thought to be GI bleeding. The patient also has cytopenia specifically anemia and leukopenia. The leukopenia, I suspect is due to myelosuppression. RECOMMENDATIONS 1. Metastatic GI malignancy: He has been on palliative systemic therapy with FOLFOX. This has been coordinated by Dr. Pruitt who will resume care starting 12/11/2016. Unfortunately this patient seems to have developed significant pancytopenia following delivery of treatment. His performance status is also very poor and he will likely require a protracted recovery before he can receive anymore treatment if he is able to. I did review the patient's PET CT scan from October, although this was performed before he received palliative chemo, unfortunately this man's liver is heavily involved with disease. 2. Leukopenia: I have started him on Neupogen daily. He is afebrile and I see he has been initiated by the admitting physicians on empiric antibiotics with cefepime and vancomycin which I think is reasonable to continue. 3. Lower extremity edema: I will review the records to see when his most recent ultrasound Dopplers were performed. If they were not done within the last 2-3 weeks, I will repeat those to rule out deep venous thrombosis. Additionally a note of peripheral blasts in the circulation is noted. I am not certain if this is due to marrow recovery or due to growth factor support which had been delivered as an outpatient, however, this ought to be managed in case he may have two concurrent malignant disorders, i.e., the GI malignancy with a secondary primary bone marrow disorder such as MDS or leukemia. MD GARRETT Arguelles/ANGEL /10:36 AM /11:03 AM
[2016-12-10] MEDS: FOLIC ACID 1 MG TAB PO SCH (12:05)
--- NOTE | 2016-12-10 14:37 | EKG ---
Date Performed: 12/09/2016 Time Performed: 16:33:32 PTAGE: 71 years EKG: Sinus rhythm WITH SINUS ARRHYTHMIA NONSPECIFIC T-WAVE ABNORMALITY BORDERLINE ECG Compared to prior tracing no sig nificant change PREVIOUS TRACING : 10/25/2016 19.27 DOCTOR: Anupam Sorto Interpretating Date/Time 12/10/2016 14:35:30
[2016-12-10] MEDS: SODIUM CHLORIDE 0.9% FLUSH 5 ML FLUSH FLUSH SCH ×2 (15:00→21:00)
--- NOTE | 2016-12-10 16:02 | PD.CONS ---
HPI History of Present Illness This is a 71 year old male with known esophageal cancer. He was originally found to have metastatic malignancy of GI primary with extensive liver metastases by liver biopsy at [facility]. He underwent GI workup while at this facility in October and was evaluated with EGD/Colonoscopy (10/30/16)-----> clean base ulcers in duodenum, gastritis antrum, ulcerated mass distal esophagus, also a small pedunculated ulcerate polypoid mass above one biopsy, very friable nearly obstructing, pediatric upper scope used, retroflexed views revealed a hiatal hernia, diverticulosis, hemorrhoids. Duodenal mucosa with peptic duodenitis, antral mucosa with focal mild active chronic gastritis, mike stain is positive for a small number of organisms suspicious for helicobacter, rectal polyp tubular adenoma, esophageal biopsy with invasive moderately differentiated adenocarcinoma, aggregates of budding yeast and pseudohyphae, consistent with aaron in necrotic debris. He has been initiated on palliative systemic therapy with modified dose of FOLFOX. He was sent from a local nursing facility for evaluation of anemia. Gi has been consulted for further evaluation. The patient denies any obvious active bleeding. He reports that he is eating a regular diet without difficulty. He denies any nausea, vomiting, abdominal pain. He denies any melena or hematochezia. His main complaint is the swelling in his bilateral lower extremities that prevents him from walking. 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 Pylori gastritis HTN Past Surgical History Liver biopsyon September 24, 2016, and October 10, 2016 Appendectomy Colonoscopy (Stephanie Root) Coded Allergies: No Known Allergies (Unverified , 10/25/16) Medications Allergies Coded Allergies Type Severity Reaction Last Updated Verified No Known Allergies 10/25/16 No Active Scripts Medications Dose Route/Sig Days Date Category Oxycodone (Oxycodone HCl) 5 Mg Tab 5 Mg PO Q4H PRN 12/09/16 Reported Metoprolol Tartrate 25 Mg Tab 25 Mg PO BID 12/09/16 Reported Remeron (Mirtazapine) 15 Mg Tab 15 Mg PO HS 12/09/16 Reported Diphenhydramine (Diphenhydramine HCl) 25 Mg Cap 25 Mg PO HS PRN 1/18/17 Reported Family History Mother at age 69 from either colon or ovarian cancer Social History History of tobacco abuse. Negative for alcohol or drugs. (Stephanie Root) Review of Systems Constitutional: COMPLAINS OF: Fatigue, DENIES: Fever, Chills Cardiovascular: COMPLAINS OF: Lower Extremity Edema Gastrointestinal: DENIES: Abdominal pain, Black stools, Bloody stools, Constipation, Diarrhea, Nausea, Vomiting, Difficulty Swallowing, Heartburn, Hematemesis Integumentary: DENIES: Abnormal pigmentation Hematologic/lymphatic: DENIES: Bruising Immunologic/allergic: DENIES: Eczema Neurologic: DENIES: Headache Psychiatric: DENIES: Confusion (Stephanie Root) GI Exam Vitals I&O Vital Signs Date Time Temp Pulse Resp B/P Pulse Ox O2 Delivery O2 Flow Rate FiO2 12/10/16 13:57 96.5 70 18 106/59 95 12/10/16 08:00 97.3 73 24 96/51 100 12/10/16 05:00 97.7 70 18 94/56 94 12/10/16 03:42 97.9 70 16 85/42 96 12/10/16 01:19 98.5 71 16 76/46 100 12/10/16 00:58 99.3 72 16 79/45 92 12/10/16 00:00 98.6 71 19 89/50 91 12/09/16 22:00 96.2 94 20 104/65 100 12/09/16 19:24 89 14 100/57 100 Room Air 12/09/16 18:00 97.8 87 16 159/64 Room Air 12/09/16 17:24 86 16 114/67 Room Air 12/09/16 17:00 80 17 97/56 Room Air 12/09/16 16:30 80 18 103/53 Room Air 12/09/16 16:18 81 23 95 Room Air 12/09/16 16:14 16 95 Room Air 12/09/16 16:00 97.7 82 23 100/61 95 I/O 12/09/16 12/09/16 12/09/16 12/10/16 12/10/16 12/10/16 07:00 15:00 23:00 07:00 15:00 23:00 Intake Total 240 ml Output Total 200 ml Balance 240 ml -200 ml Intake Oral 240 ml Output Urine Total 200 ml # Voids 1 Imaging Last Impressions Chest X-Ray 12/09/16 0000 Signed Impressions: Service Date/Time: Friday, December 09, 2016 16:24 - CONCLUSION: Left basilar atelectasis. Riley Bianchi MD Laboratory Test 12/09/16 12/09/16 12/09/16 12/09/16 16:15 18:36 19:34 22:00 White Blood Count 1.5 TH/MM3 Red Blood Count 2.25 MIL/MM3 Hemoglobin 7.5 GM/DL Hematocrit 21.6 % Mean Corpuscular Volume 96.1 FL Mean Corpuscular Hemoglobin 33.2 PG Mean Corpuscular Hemoglobin 34.5 % Concent Red Cell Distribution Width 18.0 % Platelet Count 207 TH/MM3 Mean Platelet Volume 9.7 FL Neutrophils (%) (Auto) % Lymphocytes (%) (Auto) % Monocytes (%) (Auto) % Eosinophils (%) (Auto) % Basophils (%) (Auto) % Neutrophils # (Auto) TH/MM3 Lymphocytes # (Auto) TH/MM3 Monocytes # (Auto) TH/MM3 Eosinophils # (Auto) TH/MM3 Basophils # (Auto) TH/MM3 CBC Comment AUTO DIFF Differential Total Cells 100 Counted Neutrophils % (Manual) 2 % Band Neutrophils % 1 % Lymphocytes % 65 % Monocytes % 24 % Eosinophils % 1 % Basophils % 3 % Neutrophils # (Manual) 0.0 TH/MM3 Nucleated Red Blood Cells 2 /100 WBC Differential Comment FINAL DIFF MANUAL Blastocytes 4 % Platelet Estimate NORMAL Platelet Morphology Comment NORMAL Prothrombin Time 15.0 SEC Prothromb Time International 1.3 RATIO Ratio Activated Partial 31.5 SEC Thromboplast Time Sodium Level 141 MEQ/L Potassium Level 3.5 MEQ/L Chloride Level 107 MEQ/L Carbon Dioxide Level 24.3 MEQ/L Anion Gap 10 MEQ/L Blood Urea Nitrogen 32 MG/DL Creatinine 1.06 MG/DL Estimat Glomerular Filtration 69 ML/MIN Rate Random Glucose 97 MG/DL Lactic Acid Level 2.1 mmol/L 2.7 mmol/L Calcium Level 7.3 MG/DL Protein Corrected Calcium 8.5 MG/DL Total Bilirubin 1.1 MG/DL Aspartate Amino Transf 443 U/L (AST/SGOT) Alanine Aminotransferase 160 U/L (ALT/SGPT) Alkaline Phosphatase 302 U/L Total Protein 4.9 GM/DL Albumin 1.4 GM/DL Blood Type B POSITIVE B POSITIVE Antibody Screen NEGATIVE Blood Bank Comment Crossmatch Leukocyte-Reduced Red Blood Cells Urine Color YELLOW Urine Turbidity HAZY Urine pH 5.5 Urine Specific [place] 1.014 Urine Protein 30 mg/dL Urine Glucose (UA) NEG mg/dL Urine Ketones NEG mg/dL Urine Occult Blood MOD Urine Nitrite NEG Urine Bilirubin NEG Urine Urobilinogen LESS THAN 2.0 MG/DL Urine Leukocyte Esterase NEG Urine RBC 1 /hpf Urine WBC 2 /hpf Urine Squamous Epithelial 1 /hpf Cells Urine Amorphous Sediment RARE Urine Bacteria RARE /hpf Urine Granular Casts 1 /lpf Urine Mucus FEW /lpf Microscopic Urinalysis Comment CULT NOT INDICATED Test 12/10/16 12/10/16 12/10/16 05:45 08:10 10:17 White Blood Count 1.7 TH/MM3 Red Blood Count 2.12 MIL/MM3 Hemoglobin 6.9 GM/DL 7.3 GM/DL Hematocrit 19.9 % 21.6 % Mean Corpuscular Volume 93.9 FL Mean Corpuscular Hemoglobin 32.7 PG Mean Corpuscular Hemoglobin 34.8 % Concent Red Cell Distribution Width 17.7 % Platelet Count 195 TH/MM3 Mean Platelet Volume 9.5 FL Neutrophils (%) (Auto) % Lymphocytes (%) (Auto) % Monocytes (%) (Auto) % Eosinophils (%) (Auto) % Basophils (%) (Auto) % Neutrophils # (Auto) TH/MM3 Lymphocytes # (Auto) TH/MM3 Monocytes # (Auto) TH/MM3 Eosinophils # (Auto) TH/MM3 Basophils # (Auto) TH/MM3 CBC Comment AUTO DIFF Differential Total Cells 100 Counted Neutrophils % (Manual) 5 % Band Neutrophils % 2 % Lymphocytes % 71 % Monocytes % 17 % Eosinophils % 1 % Basophils % 2 % Neutrophils # (Manual) 0.1 TH/MM3 Myelocytes 1 % Nucleated Red Blood Cells 3 /100 WBC Differential Comment FINAL DIFF MANUAL Blastocytes 1 % Platelet Estimate NORMAL Platelet Morphology Comment ENLARGED Keratocytes OCC Sodium Level 144 MEQ/L Potassium Level 3.0 MEQ/L Chloride Level 110 MEQ/L Carbon Dioxide Level 24.2 MEQ/L Anion Gap 10 MEQ/L Blood Urea Nitrogen 31 MG/DL Creatinine 1.00 MG/DL Estimat Glomerular Filtration 73 ML/MIN Rate Random Glucose 80 MG/DL Lactic Acid Level 1.2 mmol/L Calcium Level 6.7 MG/DL Protein Corrected Calcium 8.4 MG/DL Total Bilirubin 1.1 MG/DL Aspartate Amino Transf 264 U/L (AST/SGOT) Alanine Aminotransferase 117 U/L (ALT/SGPT) Alkaline Phosphatase 224 U/L Total Protein 4.0 GM/DL Albumin 1.1 GM/DL Blood Type B POSITIVE Crossmatch Leukocyte-Reduced Red Blood Cells Blood Bank Comment Date/Time Procedure Status Source Growth 12/09/16 16:20 Aerobic Blood Culture - Preliminary Resulted Blood Peripheral NO GROWTH IN 1 DAY 12/09/16 16:20 Anaerobic Blood Culture - Preliminary Resulted Blood Peripheral NO GROWTH IN 1 DAY Physical Examination HEENT: Normocephalic; atraumatic; no jaundice. CHEST: CTA, diminished bases. CARDIAC: RRR ABDOMEN: Soft,obese, nondistended, nontender; no hepatosplenomegaly; bowel sounds are present in all four quadrants. EXTREMITIES: 4+ BLE edema. SKIN: Multiple ecchymotic areas JACKSPOOLER: Lethargic and oriented times three. (Stephanie Root) Assessment and Plan Plan ASSESSMENT: - Anemia with Hemoccult positive stool. Tx from nursing facility for anemia. S /P 2 units PRBC. 7.3/.6. No obvious active bleeding. He does have hx of duodenal ulcers, ulcerated esophageal mass. Will plan for EGD in am. - Anemia, acute blood loss. S/P 2 units PRBC. 7.3/.6. - Leukopenia, likely secondary to chemotherapy. - Elevated LFTs. Pt with known extensive metastatic disease. T. Bili 1.1, AST 264, ALT 117, ALk Phosph 224. - Stage IV Esophageal Cancer. PT was diagnosed with metastatic malignancy of GI primary with extensive liver mets by liver biopsy at [facility]. He underwent GI workup while at this facility in October and was evaluated with EGD/Colonoscopy (10/30/16)-----> clean base ulcers in duodenum, gastritis antrum, ulcerated mass distal esophagus, also a small pedunculated ulcerate polypoid mass above one biopsy, very friable nearly obstructing, pediatric upper scope used, retroflexed views revealed a hiatal hernia, diverticulosis, hemorrhoids. Duodenal mucosa with peptic duodenitis, antral mucosa with focal mild active chronic gastritis, mike stain is positive for a small number of organsims suspicious for helicobacter, rectal polyp tubular adenoma, esophageal biopsy with invasive moderately differentiated adenocarcinoma, aggregates of budding yeast and pseudohyphae, consistent with aaron in necrotic debris. Palliative systemic therapy with modified dose of FOLFOX. He denies any difficulty swallowing and is eating solids such as sandwiches. - BLE Edema. Per primary - Neutropenic fevers, sepsis. Abx and workup per primary - Hx of H. Pylori, unclear if this was treated. We can check for this at time of EGD. PLAN: - Plan for egd in am - Obtain consents - NPO after MN - Protonix 40mg IV BID - Monitor HH - Transfuse as necessary - Supportive care - Further recommendations to follow based on results of above - Pt seen and examined by Dr. Jaramillo and myself and this note is written on his behalf (Stephanie Root) Physician Comments Patient Seen and examined Agree with above Continue with current supportive care Monitor labs We'll plan for an EGD tomorrow and we will recheck for H. pylori (Tobias Jaramillo MD) Stephanie Root Dec 10, 2016 16:02 Tobias Jaramillo MD Dec 10, 2016 19:41
--- NOTE | 2016-12-10 18:36 | RADRPT ---
EXAM DATE/TIME: 12/10/2016 16:48 [facility] COMPARISON: No previous studies available for comparison. INDICATIONS : Bilateral leg swelling. MEDICAL HISTORY : Hypertension. Cerebrovascular accident. Metastatic adenocarcenoma. Afib. Lung cancer. Esophageal canc er. Chemotherapy. Renal failure. Anemia. SURGICAL HISTORY : Appendectomy. Liver biopsy. ENCOUNTER: Subsequent ACUITY: 3 weeks PAIN SCORE: 3/10 LOCATION: Bilateral legs. TECHNIQUE: Venous ultrasound of the left and right leg was performed from the inguinal ligament to the proximal calf. Real-time, color Doppler and spectral tracing, compression and augmentation techniques were us ed. FINDINGS: RIGHT LEG: There is normal compressibility of the deep venous system from the inguinal region to the proximal ca lf. No echogenic clot is seen in the lumen of the common femoral, femoral, popliteal, and posterior tibial veins. There is a normal response of the venous system to proximal and distal augmentation an d respiration. LEFT LEG: There is normal compressibility of the deep venous system from the inguinal region to the proximal ca lf. No echogenic clot is seen in the lumen of the common femoral, femoral, popliteal, and posterior tibial veins. There is a normal response of the venous system to proximal and distal augmentation an d respiration. CONCLUSION: Normal examination. Riley Bianchi MD on December 10, 2016 at 18:34 Board Certified Radiologist. This report was verified electronically.
[2016-12-10] MEDS: MIRTAZAPINE 15 MG TAB PO SCH (21:49)
[2016-12-10] MEDS: VANCOMYCIN INJ 2,500 MG in SODIUM CHLORID 0.9% 500 ML INJ 500 ML IV SCH (22:37)
[2016-12-10 22:38] LABS: REVIEW FLAG FINAL
[2016-12-11] VITALS (10 sets, daily range): BP systolic 60–109; BP diastolic 31–58; PULSE 67–148; RESP 18–20; TEMP 97.2–97.6; O2SAT 94–100
[2016-12-11 04:55] LABS: BICARBONATE 22.3 MEQ/L (21.0-32.0); POTASSIUM 3.4 MEQ/L (3.5-5.1)
[2016-12-11 05:01] LABS: HEMATOCRIT 28.4 % (39.0-51.0); MEAN CELL VOLUME 100.8 FL (80.0-100.0); MEAN CORPUSCULAR HEMOGLOBIN 32.2 PG (27.0-34.0); PLATELET COUNT 226 TH/MM3 (150-450); RED BLOOD COUNT 2.81 MIL/MM3 (4.50-5.90); RED CELL DISTRIBUTION WIDTH 18.5 % (11.6-17.2); WHITE BLOOD COUNT 3.7 TH/MM3 (4.0-11.0)
[2016-12-11 05:04] LABS: HEMO FLAGS AUTO DIFF
[2016-12-11 05:06] LABS: CALCIUM-PROTEIN CORRECTED 8.7 MG/DL (8.5-10.1)
[2016-12-11] MEDS: CEFEPIME INJ 2,000 MG in SODIUM CHLORIDE 0.9% INJ 100 ML IV SCH ×3 (05:19→22:00)
[2016-12-11 06:57] LABS: BANDS 11 % (0-6); BASOPHILS 1 % (0-2); CORRECTED NUCLEATED RBC 5 /100 WBC (0-0); EOSINOPHILS 2 % (0-4); METAMYELOCYTES 2 % (0-1); MYELOCYTES 6 % (0-0); NEUTROPHIL # MANUAL DIFF 0.8 TH/MM3 (1.8-7.7); POLYS (SEG NEUTROPHILS) 1 % (16-70); PROMYELOCYTES 1 % (0-0); WBC DIFF SAMPLE 100
[2016-12-11 06:58] LABS: ACANTHOCYTES OCC (NORMAL); OVALOCYTES 1+ (NORMAL); PLATELET ESTIMATE SMEAR NORMAL (NORMAL); PLATELET MORPHOLOGY ENLARGED (NORMAL); SCAN/DIFF FINAL DIFF MANUAL
[2016-12-11] MEDS: FOLIC ACID 1 MG TAB PO SCH (08:13)
[2016-12-11] MEDS: SODIUM CHLORIDE 0.9% FLUSH 5 ML FLUSH FLUSH SCH ×2 (08:13→21:58)
[2016-12-11] MEDS: PANTOPRAZOLE SODIUM 40 MG VIAL IV PUSH SCH ×2 (09:00→21:59)
--- NOTE | 2016-12-11 10:27 | HHI.PR ---
Subjective Remarks I was called to see the pt today , his GI scope was cancelled due to new onset Afib . i instructed them to transfer the pt to the Cardiac floor , went to see the pt in the room there he was non sx , no cp , no sob , no palpitation , bp was low in the 90 systolic no f/c , no n/v Objective Vitals Vital Signs Date Time Temp Pulse Resp B/P Pulse Ox O2 Delivery O2 Flow Rate FiO2 12/11/16 04:00 97.2 80 18 109/58 99 12/10/16 20:00 100.0 98 19 99/57 95 12/10/16 16:00 97.0 84 20 120/70 99 12/10/16 13:57 96.5 70 18 106/59 95 12/10/16 12:00 98.5 78 16 97/56 12/10/16 11:45 98.5 77 16 96/55 100 I/O 12/10/16 12/10/16 12/10/16 12/11/16 12/11/16 12/11/16 07:00 15:00 23:00 07:00 15:00 23:00 Intake Total 240 ml 240 ml 0 ml Output Total 800 ml 400 ml Balance -560 ml 240 ml -400 ml Intake Oral 240 ml 240 ml 0 ml Output Urine Total 800 ml 400 ml # Bowel Movements 1 0 Result Diagram: 12/11/16 0413 12/11/16 0413 Imaging Last Impressions Lower Extremity Ultrasound 12/10/16 0000 Signed Impressions: Service Date/Time: Saturday, December 10, 2016 16:48 - CONCLUSION: Normal examination. Riley Bianchi MD Chest X-Ray 12/09/16 0000 Signed Impressions: Service Date/Time: Friday, December 09, 2016 16:24 - CONCLUSION: Left basilar atelectasis. Riley Bianhci MD Objective Remarks GENERAL: This is a well-nourished, well-developed patient, in no apparent distress. CARDIOVASCULAR: Regular rate and irregular rhythm without murmurs, gallops, or rubs. RESPIRATORY: Clear to auscultation. Breath sounds equal bilaterally. No wheezes , rales, or rhonchi. GASTROINTESTINAL: Abdomen soft, non-tender, nondistended. Normal, active bowel sounds MUSCULOSKELETAL: Extremities without clubbing, cyanosis, or edema. NEURO: Alert & Oriented x4 to person, place, time, situation. Moves all ext x4 A/P Problem List: (1) GI bleed ICD Code: K92.2 Status: Acute (2) Anemia ICD Code: D64.9 Status: Acute (3) Sepsis ICD Code: A41.9 Status: Acute (4) Neutropenic fever ICD Code: D70.9 Status: Acute (5) Esophageal cancer ICD Code: C15.9 Status: Acute Assessment and Plan New onset Afib W RVR , hemodynamically unstable with 95/63 initially cycla cardiac enzymes stat ekg reviewed personally by me showing afib w rvr, some T wave nonspecific changes unable to start anticoag due to GI bleed initialy NS bolus 500cc ordered to support BP , lopressor 5 mg iv x1 >> did not improve HR or BP , later ordered digoxin 0.25 mg iv x1 (not able to use oher rate control agent due to hypotension at 1:25 received a call from the nurse pt bp systolic in the 50s, dl was called, i asked them to tx pt to [place] , i came to see the pt , he was still clinically non symptomatic, oi ordered another bolus of ns , I called and informed him about the pt , if bp doesn't improve pt may need to be cardioverted emergently , pt tx to room 511 in [place] under care of dr Torres total critical care time 65 minutes GI Bleed anemia H/H stablized at 9 Transfuse 2 units packed red blood cells Continue Protonix IV every 12 hours appreciate GI consult , GI scope cancelled today due to new Afib and hypotension Patient with known esophageal cancer and liver metastases, oncology consulted Sepsis Chest x-ray with left basilar atelectasis, possibly early pneumonia UA within normal limits Blood cultures pending Continue cefepime, vancomycin Neutropenic Fever Place on precautions , oncology/hem ff Esophageal CA Stage IV with extensive liver metastases Dr. Edmond hallman ff DVT Prophylaxis: Pharmacologic contraindication in light of GI Bleed, Anemia. Problem Qualifiers (1) Anemia: Megan Gudino MD Dec 11, 2016 10:27
[2016-12-11] MEDS ORDERED: SODIUM CHLORID 0.9% 500 ML INJ 500 ML IV ONE (10:30)
[2016-12-11] MEDS ORDERED: METOPROLOL TARTRATE 5 MG/5 ML VIAL IV PUSH ONE (10:30)
[2016-12-11] MEDS: SODIUM CHLOR 0.9% 1000 ML INJ 1,000 ML IV SCH ×2 (11:55→19:53)
[2016-12-11] MEDS ORDERED: DIGOXIN 0.5 MG/2 ML VIAL IV PUSH ONE ×2 (12:15→16:00)
[2016-12-11] MEDS ORDERED: POTASSIUM CHLORIDE 25 MEQ EFFERVESCENT TAB PO ONE (13:00)
--- NOTE | 2016-12-11 13:21 | PD.ONC.PN ---
Subjective Subjective Remarks Tmax 100F overnight. Patient went into afib with RVR this AM while in GI lab before they were able to start EGD. He states he feels well. Denies chest pain or light headedness. Denies history of heart problems. d/w rn Objective Data Date Time Temp Pulse Resp B/P Pulse Ox O2 Delivery O2 Flow Rate FiO2 12/11/16 12:05 130 12/11/16 11:14 67 20 97/31 99 12/11/16 11:14 67 12/11/16 10:38 119 12/11/16 04:00 97.2 80 18 109/58 99 12/10/16 20:00 100.0 98 19 99/57 95 12/10/16 16:00 97.0 84 20 120/70 99 12/10/16 13:57 96.5 70 18 106/59 95 Result Diagram: 12/11/16 0413 12/11/16 0413 Laboratory Results Laboratory Tests Test 12/10/16 12/11/16 22:22 04:13 Hemoglobin 8.6 GM/DL 9.1 GM/DL Hematocrit 25.0 % 28.4 % White Blood Count 3.7 TH/MM3 Red Blood Count 2.81 MIL/MM3 Mean Corpuscular Volume 100.8 FL Mean Corpuscular Hemoglobin 32.2 PG Mean Corpuscular Hemoglobin 32.0 % Concent Red Cell Distribution Width 18.5 % Platelet Count 226 TH/MM3 Mean Platelet Volume 9.0 FL Neutrophils (%) (Auto) % Lymphocytes (%) (Auto) % Monocytes (%) (Auto) % Eosinophils (%) (Auto) % Basophils (%) (Auto) % Neutrophils # (Auto) TH/MM3 Lymphocytes # (Auto) TH/MM3 Monocytes # (Auto) TH/MM3 Eosinophils # (Auto) TH/MM3 Basophils # (Auto) TH/MM3 CBC Comment AUTO DIFF Differential Total Cells 100 Counted Neutrophils % (Manual) 1 % Band Neutrophils % 11 % Lymphocytes % 63 % Monocytes % 13 % Eosinophils % 2 % Basophils % 1 % Neutrophils # (Manual) 0.8 TH/MM3 Metamyelocytes 2 % Myelocytes 6 % Promyelocytes 1 % Nucleated Red Blood Cells 5 /100 WBC Differential Comment FINAL DIFF MANUAL Atypical Lymphocytes % Platelet Estimate NORMAL Platelet Morphology Comment ENLARGED Ovalocytes 1+ Acanthocytes OCC Hematology Comments Sodium Level 144 MEQ/L Potassium Level 3.4 MEQ/L Chloride Level 113 MEQ/L Carbon Dioxide Level 22.3 MEQ/L Anion Gap 9 MEQ/L Blood Urea Nitrogen 28 MG/DL Creatinine 1.02 MG/DL Estimat Glomerular Filtration 72 ML/MIN Rate Random Glucose 80 MG/DL Calcium Level 7.1 MG/DL Protein Corrected Calcium 8.7 MG/DL Total Protein 4.2 GM/DL Culture Results Microbiology Date/Time Procedure Status Source Growth 12/09/16 16:15 Aerobic Blood Culture - Preliminary Resulted Blood Peripheral NO GROWTH IN 2 DAYS 12/09/16 16:15 Anaerobic Blood Culture - Preliminary Resulted Blood Peripheral NO GROWTH IN 2 DAYS 12/09/16 16:20 Aerobic Blood Culture - Preliminary Resulted Blood Peripheral NO GROWTH IN 2 DAYS 12/09/16 16:20 Anaerobic Blood Culture - Preliminary Resulted Blood Peripheral NO GROWTH IN 2 DAYS Administered Medications Medications (Trade) Dose Ordered Sig/Yobani Route PRN Reason Start Time Stop Time Status Last Admin Dose Admin Sodium Chloride (NS 1000 ml Inj) 1,000 ml @ 100 mls/hr Q10H IV 12/09/16 17:53 12/11/16 11:55 IV Flush (NS Flush) 2 ml BID FLUSH 12/09/16 21:00 12/10/16 15:00 Diphenhydramine HCl (Benadryl) 25 mg HS PRN PO INSOMNIA 12/09/16 18:15 12/10/16 09:34 Metoprolol Tartrate (Lopressor) 25 mg BID PO 12/09/16 21:00 12/09/16 21:31 Mirtazapine (Remeron) 15 mg HS PO 12/09/16 21:00 12/10/16 21:49 Acetaminophen (Tylenol) 650 mg Q6H PRN PO headache/fever/pain1-2 12/09/16 18:15 12/10/16 21:49 Oxycodone HCl 5 mg 5 mg Q4H PRN PO PAIN SCALE 3 TO 10 12/09/16 18:15 12/11/16 04:31 Cefepime HCl 2000 mg/Sodium Chloride 100 ml @ 200 mls/hr Q8HR IV 12/09/16 22:00 12/11/16 05:19 Vancomycin HCl/ Sodium Chloride (Vancomycin Inj/ NS 500 ml Inj) 525 ml @ 250 mls/hr Q24H IV 12/09/16 21:00 12/10/16 22:37 Pantoprazole Sodium (Protonix Inj) 40 mg Q12H IV PUSH 12/10/16 09:00 12/10/16 21:49 Folic Acid (Folate) 1 mg DAILY PO 12/10/16 11:00 12/10/16 12:05 Objective Remarks GENERAL: Chronically ill appearing male, sitting up in bed in nad. SKIN: Warm and dry. HEAD: Normocephalic. EYES: No injection or drainage. NECK: Supple, trachea midline. LYMPHATIC: No adenopathy. CARDIOVASCULAR: IRR, rate in 150s RESPIRATORY: Breath sounds equal bilaterally. No accessory muscle use. GASTROINTESTINAL: Abdomen soft, non-tender, nondistended. EXTREMITIES: No cyanosis. 3+ lower extremity pitting edema NEUROLOGICAL: awake and alert, normal speech. Assessment/Plan Problem List: (1) Metastatic adenocarcinoma of unknown origin Status: Acute Plan: --diagnosed in October 2016 --status post two cycles of modified dose FOLFOX with the most recent cycle delivered on 11/27/2016. (2) Anemia Status: Acute Plan: --likely due to GIB --GI following and plans for EGD --s/p 2 units pRBC (3) Leukopenia due to antineoplastic chemotherapy Status: Acute Plan: --on Neupogen daily. --monitor for fevers --on empiric antibiotics (4) Atrial fibrillation Status: Acute Plan: --per cardiology/primary --[place] [facility] [place] 71y/o male with metastatic adenocarcinoma of GI primary admitted with progressive anemia and leukopenia. h/o Anemia related to iron deficiency. Chemotherapy related to myelosuppression. History of hypertension. Reported history of CVA. Attending Statement The exam, history, and the medical decision-making described in the above note were completed with the assistance of the mid-level provider. I reviewed and agree with the findings presented. I attest that I had a [id number] encounter with the patient on the same day, and personally performed and documented my assessment and findings in the medical record. Stage IV adenocarcinoma of GI primary, with Leukopenia and anemia. Developed Afib with RVR. obtain CTA to r/o PE that could be triggering afib with RVR. Keep Hb > 8 Anemia w/u. GI to perform endoscopy when stable. continue neupogen broad spectrum abx blood cx negative to date. malnutrition with albumin 1.3. poor appetite. may need to consider TPN Problem Qualifiers (1) Anemia: Sofya Thomas Dec 11, 2016 13:21 Krishna Pruitt MD Dec 11, 2016 20:44
--- NOTE | 2016-12-11 13:23 | HHI.GIFU ---
Subjective Remarks Patient is in the middle of Halicat, this was initiated or hypotension and tachycardia. Patient himself looks good, eating a banana and drinking insure, no signs of bleeding. EGD was cancelled today for a-fib with RVR Objective Vitals I&O Vital Signs Date Time Temp Pulse Resp B/P Pulse Ox O2 Delivery O2 Flow Rate FiO2 12/11/16 12:05 130 12/11/16 11:14 67 20 97/31 99 12/11/16 11:14 67 12/11/16 10:38 119 12/11/16 04:00 97.2 80 18 109/58 99 12/10/16 20:00 100.0 98 19 99/57 95 12/10/16 16:00 97.0 84 20 120/70 99 12/10/16 13:57 96.5 70 18 106/59 95 I/O 12/10/16 12/10/16 12/10/16 12/11/16 12/11/16 12/11/16 07:00 15:00 23:00 07:00 15:00 23:00 Intake Total 240 ml 240 ml 0 ml Output Total 800 ml 400 ml Balance -560 ml 240 ml -400 ml Intake Oral 240 ml 240 ml 0 ml Output Urine Total 800 ml 400 ml # Bowel Movements 1 0 Laboratory Laboratory Tests Test 12/10/16 12/11/16 22:22 04:13 Hemoglobin 8.6 9.1 Hematocrit 25.0 28.4 White Blood Count 3.7 Red Blood Count 2.81 Mean Corpuscular Volume 100.8 Mean Corpuscular Hemoglobin 32.2 Mean Corpuscular Hemoglobin 32.0 Concent Red Cell Distribution Width 18.5 Platelet Count 226 Mean Platelet Volume 9.0 Neutrophils (%) (Auto) Lymphocytes (%) (Auto) Monocytes (%) (Auto) Eosinophils (%) (Auto) Basophils (%) (Auto) Neutrophils # (Auto) Lymphocytes # (Auto) Monocytes # (Auto) Eosinophils # (Auto) Basophils # (Auto) CBC Comment AUTO DIFF Differential Total Cells 100 Counted Neutrophils % (Manual) 1 Band Neutrophils % 11 Lymphocytes % 63 Monocytes % 13 Eosinophils % 2 Basophils % 1 Neutrophils # (Manual) 0.8 Metamyelocytes 2 Myelocytes 6 Promyelocytes 1 Nucleated Red Blood Cells 5 Differential Comment FINAL DIFF MANUAL Atypical Lymphocytes Platelet Estimate NORMAL Platelet Morphology Comment ENLARGED Ovalocytes 1+ Acanthocytes OCC Hematology Comments Sodium Level 144 Potassium Level 3.4 Chloride Level 113 Carbon Dioxide Level 22.3 Anion Gap 9 Blood Urea Nitrogen 28 Creatinine 1.02 Estimat Glomerular Filtration 72 Rate Random Glucose 80 Calcium Level 7.1 Protein Corrected Calcium 8.7 Total Protein 4.2 Date/Time Procedure Status Source Growth 12/09/16 16:20 Aerobic Blood Culture - Preliminary Resulted Blood Peripheral NO GROWTH IN 2 DAYS 12/09/16 16:20 Anaerobic Blood Culture - Preliminary Resulted Blood Peripheral NO GROWTH IN 2 DAYS Imaging Last Impressions Lower Extremity Ultrasound 12/10/16 0000 Signed Impressions: Service Date/Time: Saturday, December 10, 2016 16:48 - CONCLUSION: Normal examination. Riley Bianchi MD Chest X-Ray 12/09/16 0000 Signed Impressions: Service Date/Time: Friday, December 09, 2016 16:24 - CONCLUSION: Left basilar atelectasis. Riley Bianchi MD Physical Exam HEENT: normocephalic; atraumatic; no jaundice. Throat is clear. NECK: Neck is supple, no JVD, no lymphadenopathy. CHEST: Chest is clear to auscultation and percussion. CARDIAC: Tachycardiac ABDOMEN: Soft, nondistended, nontender; no hepatosplenomegaly; bowel sounds are present in all four quadrants. EXTREMITIES: 4+ BLE edema. SKIN: Multiple ecchymotic areas DOLL WIG HACKLER: alert and oriented times three. Assessment and Plan Plan ASSESSMENT: - Anemia with Hemoccult positive stool. . S/P 2 units PRBC. HH 9.11/04.4 No obvious active bleeding. EGD was cancelled today for A-fib with RVR He does have hx of duodenal ulcers, ulcerated esophageal mass. - Anemia, acute blood loss. S/P 2 units PRBC. HH 9.28.4 - Leukopenia, likely secondary to chemotherapy. - Elevated LFTs. Pt with known extensive metastatic disease. - Stage IV Esophageal Cancer. PT was diagnosed with metastatic malignancy of GI primary with extensive liver mets by liver biopsy at [facility]. He underwent GI workup while at this facility in October and was evaluated with EGD/Colonoscopy (10/30/16)-----> clean base ulcers in duodenum, gastritis antrum, ulcerated mass distal esophagus, also a small pedunculated ulcerate polypoid mass above one biopsy, very friable nearly obstructing, pediatric upper scope used, retroflexed views revealed a hiatal hernia, diverticulosis, hemorrhoids. Duodenal mucosa with peptic duodenitis, antral mucosa with focal mild active chronic gastritis, mike stain is positive for a small number of organisms suspicious for Helicobacter, rectal polyp tubular adenoma, esophageal biopsy with invasive moderately differentiated adenocarcinoma, aggregates of budding yeast and pseudohyphae, consistent with aaron in necrotic debris. Palliative systemic therapy with modified dose of FOLFOX. He denies any difficulty swallowing and is eating solids such as sandwiches. - BLE Edema. Per primary - Neutropenic fevers, sepsis. Abx and workup per primary - Hx of H. Pylori, unclear if this was treated. We can check for this at time of EGD. - Decline in condition- hypotension, tachycardiac, Halicated, he will be transferred to the unit. - Persistent A-fib with RVR not responding to medical management PLAN: - Diet per attending - EGD once medically stable - Protonix 40mg IV BID - Monitor HH - Transfuse as necessary - Supportive care - Further recommendations to follow based on results of above - Pt seen and examined by Dr. Hoyos and myself and this note is written on his behalf James Daniel Dec 11, 2016 13:23
[2016-12-11] MEDS ORDERED: FILGRASTIM 300 MCG/ML VIAL SQ SCH (14:00)
[2016-12-11] MEDS ORDERED: RESP: ALBUTEROL 2.5 MG/IPRATROPIUM 0.5 MG NEB (PRN) NEB (14:00)
[2016-12-11 14:13] LABS: HEMATOCRIT 29.8 % (39.0-51.0); HEMO FLAGS AUTO DIFF; MEAN CORPUSCULAR HGB CONC 33.7 % (32.0-36.0); PLATELET COUNT 390 TH/MM3 (150-450); RED BLOOD COUNT 3.14 MIL/MM3 (4.50-5.90); RED CELL DISTRIBUTION WIDTH 17.8 % (11.6-17.2); WHITE BLOOD COUNT 4.8 TH/MM3 (4.0-11.0)
[2016-12-11 14:19] LABS: INTERNATIONAL NORMALIZED RATIO 1.5 RATIO; PROTHROMBIN TIME - PATIENT 16.9 SEC (9.8-11.6)
[2016-12-11] MEDS: SOTALOL HCL 80 MG TAB PO SCH ×2 (14:19→22:00)
[2016-12-11 14:22] LABS: CKMB 7.8 NG/ML (0.5-3.6)
--- NOTE | 2016-12-11 14:28 | PD.CONS ---
Consult Service Palliative Care Consult Requested By Dr. Alcaraz Primary Care Physician Anthony Harris MD Reason for Consultation a. To assist with evaluation and management of symptoms including:pain b. To assist medical decision maker(s) with: better understanding of current medical conditions; weighing benefits/burdens of medical treatment options; making medical treatment decisions. 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 Patient is seen by Dr. Roberts Oncologist. Patient recently was hospitalized in September 2016 complaining of difficulty breathing. Patient underwent CT angiogram to rule out PE. Further imaging shows that patient has multiple liver masses which were bulky. Patient also has anemia. Patient had a biopsy, and underwent systemic therapy with FOLFOX. [facility] to [facility]. Patient was transferred to [facility] due to anemia with a hemoglobin of less than 7.5. In the ER on 12/09/2016: WBCs 1.5, hemoglobin 7.5, hematocrit 21.6, platelet is 207 Sodium is 141, potassium 3.5, chloride is 107, bicarbonate is 24.3, BUN is 32, creatinine is 1.06 PT 16.9, INR is 1.5, PTT is 31.5 UA has moderate amount of blood, negative for nitrate, negative for leukocyte esterase, culture not indicated Chest x-ray showed left basilar atelectasis Lower extremity ultrasound was normal. Patient was admitted to the hospitalist services. GI was consulted and they have wanted to pursue an EGD. However patient had new onset of A. fib, with hypotension. Patient was transferred to ICU and cardiology was consulted. Patient had a echo performed, placed on sotalol. Oncology was consulted. Intensivists was consulted and saw patient. Oncology noted that patient performance status is poor and no palliative chemotherapy was offered and the current time. Palliative care was consulted to review goals of care. Patient had fluctuating confusion at times that was reported by family, but on my exam patient is alert and oriented. Case d/w with cell tuber hand. Patient understand he has cancer but does not know the specifics. Patient healthcare surrogate is his and daughter; Aleah Wilson and Zulma Chi were present during review of goals of care. Reviewed pt's state with his cancer, his worsening performance status, his hypotension, anemia, and a. Fib. Code status was reviewed, and he endorses No Code/ DNR in which family at bedside support. He is amenable to focus on comfort measures only. Pt currently denies any pain or dyspnea. Pt goals of care is as follows. == No code DNR. == He wants family members to come in and see him in ICU in AM ==He would want blood transfusion, pressors until then. == After family has visited, they are amenable to transfer to hospice tomorrow. == Pt preference is to go back to nursing facility with hospice, but family is amenable to go to the care center should pt decline further and does not have capacity. Function/Cognitive Trajectory Was not doing well in rehab, and could not really participate much in PT. Some marked improvement the 2 nd day, of PT, but still very limited per daughter and spouse. 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 Pylori gastritis HTN Past Surgical History Liver biopsyon September 24, 2016, and October 10, 2016 Appendectomy Colonoscopy Reported Medications Oxycodone (Oxycodone HCl) 5 Mg Tab 5 Mg PO Q4H PRN Metoprolol Tartrate 25 Mg Tab 25 Mg PO BID Remeron (Mirtazapine) 15 Mg Tab 15 Mg PO HS Diphenhydramine (Diphenhydramine HCl) 25 Mg Cap 25 Mg PO HS PRN Current Medications Medications (Trade) Dose Ordered Sig/Yobani Route Start Time Stop Time Status Last Admin (NS 1000 ml Inj) 1,000 ml @ 100 mls/hr Q10H IV 12/09/16 17:53 12/11/16 11:55 (NS Flush) 2 ml UNSCH PRN FLUSH 12/09/16 18:00 (NS Flush) 2 ml BID FLUSH 12/09/16 21:00 12/10/16 15:00 (Zofran Inj) 4 mg Q6H PRN IVP 12/09/16 18:00 (Milk Of Magnesia Liq) 30 ml Q12H PRN PO 12/09/16 18:00 (Senokot) 17.2 mg Q12H PRN PO 12/09/16 18:00 (Narcan Inj) 0.4 mg UNSCH PRN IV 12/09/16 18:00 (Benadryl) 25 mg HS PRN PO 12/09/16 18:15 12/10/16 09:34 (Remeron) 15 mg HS PO 12/09/16 21:00 12/10/16 21:49 (Dulcolax Supp) 10 mg DAILY PRN MD 12/09/16 18:15 (Colace) 100 mg Q12H PRN PO 12/09/16 18:15 (Tylenol) 650 mg Q6H PRN PO 12/09/16 18:15 12/10/16 21:49 (Morphine Inj) 2 mg Q3H PRN IV 12/09/16 18:15 Oxycodone HCl 5 mg 5 mg Q4H PRN PO 12/09/16 18:15 12/11/16 04:31 Cefepime HCl 2000 mg/Sodium Chloride 100 ml @ 200 mls/hr Q8HR IV 12/09/16 22:00 12/11/16 14:20 (Vancomycin Consult Pharmacy) 0 ml @ 0 mls/hr UNSCH OTHER 12/09/16 19:15 Miscellaneous Information SPECIFIC LAB TO BE LISA... ONCE ONCE XX 12/12/16 20:45 12/12/16 20:46 (Vancomycin Inj/ NS 500 ml Inj) 525 ml @ 250 mls/hr Q24H IV 12/09/16 21:00 12/10/16 22:37 (Protonix Inj) 40 mg Q12H IV PUSH 12/10/16 09:00 12/10/16 21:49 (Neupogen Inj) 300 mcg DAILY@14 SQ 12/11/16 14:00 (Folate) 1 mg DAILY PO 12/10/16 11:00 12/10/16 12:05 (Betapace) 80 mg Q8HR PO 12/11/16 14:00 12/11/16 14:19 (Lanoxin Inj) 0.25 mg ONCE ONCE IV PUSH 12/11/16 16:00 12/11/16 16:01 Miscellaneous Information Patient in critical care unit? Ass... Q361D XX 12/11/16 14:30 (Chlorhexidine 2% Cloth) 3 pack DAILY@04 TOP 12/12/16 04:00 12/16/16 04:01 (Chlorhexidine 2% Cloth) 3 pack UNSCH PRN TOP 12/11/16 14:30 12/16/16 14:20 Family History Mother at age 69 from either colon or ovarian cancer Substance Use Tobacco:yes Alcohol:no Prescription med abuse:no Illicits:no Psychosocial History From [place]. . In [place] for 20 years. 3 daughters . (2 daughter present in family meeting. Chelsie and Zulma. ) 3 rd daughter is in [place]. Living Will: Completed, but not made available Health Care Surrogate(s): Timmy choudhury, pt designated Aleah Wilson (spouse) and Zulma Chi ( daughter) as surrogate. Physical Exam Vital Signs Date Time Temp Pulse Resp B/P Pulse Ox O2 Delivery O2 Flow Rate FiO2 12/11/16 13:15 148 12/11/16 12:50 60/47 12/11/16 12:05 130 12/11/16 11:14 67 20 97/31 99 12/11/16 11:14 67 12/11/16 10:38 119 12/11/16 04:00 97.2 80 18 109/58 99 12/10/16 20:00 100.0 98 19 99/57 95 12/10/16 16:00 97.0 84 20 120/70 99 12/10/16 12/11/16 19:00 07:00 Intake Total 240 ml 240 ml Output Total 800 ml 400 ml Balance -560 ml -160 ml Intake Oral 240 ml 240 ml Output Urine Total 800 ml 400 ml # Bowel Movements 1 Exam CONSTITUTIONAL/GENERAL: This frail fatigued male, on [place] SKIN: No jaundice, rashes, or lesions. Ecchymoses on upper extremities. No wounds seen anteriorly. Skin temperature appropriate. Not diaphoretic. HEAD: Atraumatic. Normocephalic. EYES: Pupils equal and round and reactive. Extraocular motions intact. No scleral icterus. ENT: Hearing grossly normal. Nose without bleeding or purulent drainage. Throat without visible erythema, exudates, masses, or lesions. NECK: Trachea midline. Supple, nontender. No palpable thyroid enlargement or nodularity. CARDIOVASCULAR: Tachycardia. No JVD. Peripheral pulses symmetric. RESPIRATORY/CHEST: Symmetric, No rhonchi. GASTROINTESTINAL: Abdomen distended, Soft. No hepato-splenomegaly, or palpable masses. No guarding. Bowel sounds present. GENITOURINARY: Without palpable bladder distension. Sam catheter in place. MUSCULOSKELETAL: Extremities without clubbing, cyanosis, or edema. LYMPHATICS: No palpable cervical or supraclavicular adenopathy. NEUROLOGICAL: Awake and alert. Follows commands.. Moves all extremities. PSYCHIATRIC: No obvious anxiety/depression. no apparent hallucinations or other psychotic thought process. Diagnostic Tests Laboratory Laboratory Tests Test 12/09/16 12/09/16 12/09/16 12/09/16 16:15 18:36 19:34 22:00 White Blood Count 1.5 TH/MM3 (4.0-11.0) Red Blood Count 2.25 MIL/MM3 (4.50-5.90) Hemoglobin 7.5 GM/DL (13.0-17.0) Hematocrit 21.6 % (39.0-51.0) Mean Corpuscular Volume 96.1 FL (80.0-100.0) Mean Corpuscular Hemoglobin 33.2 PG (27.0-34.0) Mean Corpuscular Hemoglobin 34.5 % Concent (32.0-36.0) Red Cell Distribution Width 18.0 % (11.6-17.2) Platelet Count 207 TH/MM3 (150-450) Mean Platelet Volume 9.7 FL (7.0-11.0) Neutrophils (%) (Auto) % (16.0-70.0) Lymphocytes (%) (Auto) % (9.0-44.0) Monocytes (%) (Auto) % (0.0-8.0) Eosinophils (%) (Auto) % (0.0-4.0) Basophils (%) (Auto) % (0.0-2.0) Neutrophils # (Auto) TH/MM3 (1.8-7.7) Lymphocytes # (Auto) TH/MM3 (1.0-4.8) Monocytes # (Auto) TH/MM3 (0-0.9) Eosinophils # (Auto) TH/MM3 (0-0.4) Basophils # (Auto) TH/MM3 (0-0.2) CBC Comment AUTO DIFF Differential Total Cells 100 Counted Neutrophils % (Manual) 2 % (16-70) Band Neutrophils % 1 % (0-6) Lymphocytes % 65 % (9-44) Monocytes % 24 % (0-8) Eosinophils % 1 % (0-4) Basophils % 3 % (0-2) Neutrophils # (Manual) 0.0 TH/MM3 (1.8-7.7) Nucleated Red Blood Cells 2 /100 WBC (0-0) Differential Comment FINAL DIFF MANUAL Blastocytes 4 % (0-0) Platelet Estimate NORMAL (NORMAL) Platelet Morphology Comment NORMAL (NORMAL) Prothrombin Time 15.0 SEC (9.8-11.6) Prothromb Time International 1.3 RATIO Ratio Activated Partial 31.5 SEC Thromboplast Time (24.3-30.1) Sodium Level 141 MEQ/L (136-145) Potassium Level 3.5 MEQ/L (3.5-5.1) Chloride Level 107 MEQ/L (98-107) Carbon Dioxide Level 24.3 MEQ/L (21.0-32.0) Anion Gap 10 MEQ/L (5-15) Blood Urea Nitrogen 32 MG/DL (7-18) Creatinine 1.06 MG/DL (0.60-1.30) Estimat Glomerular Filtration 69 ML/MIN (>89) Rate Random Glucose 97 MG/DL (74-106) Lactic Acid Level 2.1 mmol/L 2.7 mmol/L (0.4-2.0) (0.4-2.0) Calcium Level 7.3 MG/DL (8.5-10.1) Protein Corrected Calcium 8.5 MG/DL (8.5-10.1) Total Bilirubin 1.1 MG/DL (0.2-1.0) Aspartate Amino Transf 443 U/L (15-37) (AST/SGOT) Alanine Aminotransferase 160 U/L (12-78) (ALT/SGPT) Alkaline Phosphatase 302 U/L (45-117) Total Protein 4.9 GM/DL (6.4-8.2) Albumin 1.4 GM/DL (3.4-5.0) Blood Type B POSITIVE B POSITIVE Antibody Screen NEGATIVE Blood Bank Comment Crossmatch Leukocyte-Reduced Red Blood Cells Urine Color YELLOW (YELLW/STRAW) Urine Turbidity HAZY (CLEAR) Urine pH 5.5 (5.0-8.5) Urine Specific Bernie 1.014 (1.002-1.035) Urine Protein 30 mg/dL (NEG-TRACE) Urine Glucose (UA) NEG mg/dL (NEG) Urine Ketones NEG mg/dL (NEG) Urine Occult Blood MOD (NEG) Urine Nitrite NEG (NEG) Urine Bilirubin NEG (NEG) Urine Urobilinogen LESS THAN 2.0 MG/DL (LESS THAN 2.0) Urine Leukocyte Esterase NEG (NEG) Urine RBC 1 /hpf (0-3) Urine WBC 2 /hpf (0-5) Urine Squamous Epithelial 1 /hpf (0-5) Cells Urine Amorphous Sediment RARE Urine Bacteria RARE /hpf (NONE) Urine Granular Casts 1 /lpf (NONE) Urine Mucus FEW /lpf (OCC) Microscopic Urinalysis Comment CULT NOT INDICATED Test 12/10/16 12/10/16 12/10/16 12/10/16 05:45 08:10 10:17 22:22 White Blood Count 1.7 TH/MM3 (4.0-11.0) Red Blood Count 2.12 MIL/MM3 (4.50-5.90) Hemoglobin 6.9 GM/DL 7.3 GM/DL 8.6 GM/DL (13.0-17.0) (13.0-17.0) (13.0-17.0) Hematocrit 19.9 % 21.6 % 25.0 % (39.0-51.0) (39.0-51.0) (39.0-51.0) Mean Corpuscular Volume 93.9 FL (80.0-100.0) Mean Corpuscular Hemoglobin 32.7 PG (27.0-34.0) Mean Corpuscular Hemoglobin 34.8 % Concent (32.0-36.0) Red Cell Distribution Width 17.7 % (11.6-17.2) Platelet Count 195 TH/MM3 (150-450) Mean Platelet Volume 9.5 FL (7.0-11.0) Neutrophils (%) (Auto) % (16.0-70.0) Lymphocytes (%) (Auto) % (9.0-44.0) Monocytes (%) (Auto) % (0.0-8.0) Eosinophils (%) (Auto) % (0.0-4.0) Basophils (%) (Auto) % (0.0-2.0) Neutrophils # (Auto) TH/MM3 (1.8-7.7) Lymphocytes # (Auto) TH/MM3 (1.0-4.8) Monocytes # (Auto) TH/MM3 (0-0.9) Eosinophils # (Auto) TH/MM3 (0-0.4) Basophils # (Auto) TH/MM3 (0-0.2) CBC Comment AUTO DIFF Differential Total Cells 100 Counted Neutrophils % (Manual) 5 % (16-70) Band Neutrophils % 2 % (0-6) Lymphocytes % 71 % (9-44) Monocytes % 17 % (0-8) Eosinophils % 1 % (0-4) Basophils % 2 % (0-2) Neutrophils # (Manual) 0.1 TH/MM3 (1.8-7.7) Myelocytes 1 % (0-0) Nucleated Red Blood Cells 3 /100 WBC (0-0) Differential Comment FINAL DIFF MANUAL Blastocytes 1 % (0-0) Platelet Estimate NORMAL (NORMAL) Platelet Morphology Comment ENLARGED (NORMAL) Keratocytes OCC (NORMAL) Sodium Level 144 MEQ/L (136-145) Potassium Level 3.0 MEQ/L (3.5-5.1) Chloride Level 110 MEQ/L (98-107) Carbon Dioxide Level 24.2 MEQ/L (21.0-32.0) Anion Gap 10 MEQ/L (5-15) Blood Urea Nitrogen 31 MG/DL (7-18) Creatinine 1.00 MG/DL (0.60-1.30) Estimat Glomerular Filtration 73 ML/MIN (>89) Rate Random Glucose 80 MG/DL (74-106) Lactic Acid Level 1.2 mmol/L (0.4-2.0) Calcium Level 6.7 MG/DL (8.5-10.1) Protein Corrected Calcium 8.4 MG/DL (8.5-10.1) Total Bilirubin 1.1 MG/DL (0.2-1.0) Aspartate Amino Transf 264 U/L (15-37) (AST/SGOT) Alanine Aminotransferase 117 U/L (12-78) (ALT/SGPT) Alkaline Phosphatase 224 U/L (45-117) Total Protein 4.0 GM/DL (6.4-8.2) Albumin 1.1 GM/DL (3.4-5.0) Blood Type B POSITIVE Crossmatch Leukocyte-Reduced Red Blood Cells Blood Bank Comment Test 12/11/16 12/11/16 12/11/16 04:13 13:16 14:05 White Blood Count 3.7 TH/MM3 4.8 TH/MM3 (4.0-11.0) (4.0-11.0) Red Blood Count 2.81 MIL/MM3 3.14 MIL/MM3 (4.50-5.90) (4.50-5.90) Hemoglobin 9.1 GM/DL 10.0 GM/DL (13.0-17.0) (13.0-17.0) Hematocrit 28.4 % 29.8 % (39.0-51.0) (39.0-51.0) Mean Corpuscular Volume 100.8 FL 95.0 FL (80.0-100.0) (80.0-100.0) Mean Corpuscular Hemoglobin 32.2 PG 32.0 PG (27.0-34.0) (27.0-34.0) Mean Corpuscular Hemoglobin 32.0 % 33.7 % Concent (32.0-36.0) (32.0-36.0) Red Cell Distribution Width 18.5 % 17.8 % (11.6-17.2) (11.6-17.2) Platelet Count 226 TH/MM3 390 TH/MM3 (150-450) (150-450) Mean Platelet Volume 9.0 FL 8.4 FL (7.0-11.0) (7.0-11.0) Neutrophils (%) (Auto) % (16.0-70.0) % (16.0-70.0) Lymphocytes (%) (Auto) % (9.0-44.0) % (9.0-44.0) Monocytes (%) (Auto) % (0.0-8.0) % (0.0-8.0) Eosinophils (%) (Auto) % (0.0-4.0) % (0.0-4.0) Basophils (%) (Auto) % (0.0-2.0) % (0.0-2.0) Neutrophils # (Auto) TH/MM3 TH/MM3 (1.8-7.7) (1.8-7.7) Lymphocytes # (Auto) TH/MM3 TH/MM3 (1.0-4.8) (1.0-4.8) Monocytes # (Auto) TH/MM3 (0-0.9) TH/MM3 (0-0.9) Eosinophils # (Auto) TH/MM3 (0-0.4) TH/MM3 (0-0.4) Basophils # (Auto) TH/MM3 (0-0.2) TH/MM3 (0-0.2) CBC Comment AUTO DIFF AUTO DIFF Differential Total Cells 100 Counted Neutrophils % (Manual) 1 % (16-70) Band Neutrophils % 11 % (0-6) Lymphocytes % 63 % (9-44) Monocytes % 13 % (0-8) Eosinophils % 2 % (0-4) Basophils % 1 % (0-2) Neutrophils # (Manual) 0.8 TH/MM3 (1.8-7.7) Metamyelocytes 2 % (0-1) Myelocytes 6 % (0-0) Promyelocytes 1 % (0-0) Nucleated Red Blood Cells 5 /100 WBC (0-0) Differential Comment FINAL DIFF MANUAL Atypical Lymphocytes % (0-0) Platelet Estimate NORMAL (NORMAL) Platelet Morphology Comment ENLARGED (NORMAL) Ovalocytes 1+ (NORMAL) Acanthocytes OCC (NORMAL) Hematology Comments Sodium Level 144 MEQ/L (136-145) Potassium Level 3.4 MEQ/L (3.5-5.1) Chloride Level 113 MEQ/L (98-107) Carbon Dioxide Level 22.3 MEQ/L (21.0-32.0) Anion Gap 9 MEQ/L (5-15) Blood Urea Nitrogen 28 MG/DL (7-18) Creatinine 1.02 MG/DL (0.60-1.30) Estimat Glomerular Filtration 72 ML/MIN (>89) Rate Random Glucose 80 MG/DL (74-106) Calcium Level 7.1 MG/DL (8.5-10.1) Protein Corrected Calcium 8.7 MG/DL (8.5-10.1) Total Protein 4.2 GM/DL (6.4-8.2) Total Creatine Kinase 475 U/L (39-308) Creatine Kinase MB 7.8 NG/ML (0.5-3.6) Creatine Kinase MB % 1.6 % (0.0-4.0) Troponin I 0.08 NG/ML (0.02-0.05) Prothrombin Time 16.9 SEC (9.8-11.6) Prothromb Time International 1.5 RATIO Ratio Result Diagram: 12/11/16 1405 12/11/16 0413 Microbiology Microbiology Date/Time Procedure Status Source Growth 12/09/16 16:15 Aerobic Blood Culture - Preliminary Resulted Blood Peripheral NO GROWTH IN 2 DAYS 12/09/16 16:15 Anaerobic Blood Culture - Preliminary Resulted Blood Peripheral NO GROWTH IN 2 DAYS 12/09/16 16:20 Aerobic Blood Culture - Preliminary Resulted Blood Peripheral NO GROWTH IN 2 DAYS 12/09/16 16:20 Anaerobic Blood Culture - Preliminary Resulted Blood Peripheral NO GROWTH IN 2 DAYS Imaging Last Impressions Chest X-Ray 12/11/16 0000 Signed Impressions: Service Date/Time: Sunday, December 11, 2016 14:01 - CONCLUSION: Markedly underinflated examination with atelectasis at the lung bases. Noé Ortega MD Lower Extremity Ultrasound 12/10/16 0000 Signed Impressions: Service Date/Time: Saturday, December 10, 2016 16:48 - CONCLUSION: Normal examination. Riley Bianchi MD Patient/Family Conference Present at Family Conference: Pt's 2 daughters, Pt spouse. Family Conference Time (mins): 30 Family Conference Location: Bedside, Consult Room Issues Discussed: * Palliative care role, purpose, approach * Additional medical, psychosocial, and spiritual history * Patients general health, functional status, and cognitive changes in the months leading up to the current hospitalization * Patient/family understanding of the current medical problems * Patient/family understanding of prognosis * Patients goals of care as best understood from advance directives and/or conversations and/or values * Current medical treatment options and benefits/burdens of those options * Likely scenarios comparing ongoing aggressive care with a transition to comfort measures only * Questions answered to the best of my ability * Palliative care contact information provided Assessment and Plan Disease Oriented Problem List: (1) Metastatic adenocarcinoma of unknown origin (2) Esophageal cancer (3) Leukopenia due to antineoplastic chemotherapy (4) Dyspnea (5) Hypotension (6) Anemia Symptom Scale: Pertinent Non-Medical Issues Psychosocial: Spiritual: Legal: Ethical issues impacting care: Important Contacts Zulma Chi daughter [phone] Aleah Wilson [phone] Prognosis 71 year old with metastatic adenomcarcinoma, complicated by hypotension, anemia , afib. Not a cadidiate for further chemo. Prognosis poor. Family understand pt may not survive the night. Code Status: No Code Plan == Pt was still able to make medical decisions on my visit. == Code: endorses DNR. Family at bedside supported decision. == dyspnea,pain- pt currently denies. Pt goals of care is as follows. == No code DNR. == He wants family members to come in and see him in ICU tomorrow. ==He would want blood transfusion, pressors until tomorrow, awaiting for family. == After family has visited, they are amenable to transfer to hospice tomorrow. == Pt preference is to go back to nursing facility with hospice, but family is amenable to go to the care center should pt decline further and pt does not have capacity. == There is a living will, we do not have a copy, supposedly list surrogate as. Zulma Chi daughter [phone] Aleah Wilson(ex ) [phone] I have ask them to bring in a copy. If they could not find copy of living will, then Zulma Chi and Chelsie (2/3 daughters) can act as Health Care Proxy. March Phone number [phone] During my family meeting, both daughters (Zulma and Chelsie), pt's spouse ( Aleah)() and pt himself was present. They will bring in living will. 71 year old with metastatic adenocarcinoma, complicated by hypotension, anemia, afib. Not a cadidiate for further chemo. Prognosis poor. Family understand pt may not survive the night and decompensate. I have ask family to notify other family members that want to see him, to see him. Time Spent Total Floor Time (mins): 75 Face to Face Time (mins): 40 >50% Counseling/Coord of Care: Yes Thank you for the opportunity to participate in the care of Mr. Wilson. Attestation To help prompt me to consider important information that might be impacting today's encounter and assessment, information from prior notes written by myself or my colleagues may have been "brought forward" into today's note. My signature on this note, however, is an attestation that I personally performed the exam, history, and/or decision-making noted today, and, unless otherwise indicated, the interactions with patient, family, and staff as well as the review of records all occurred today. I also attest that the listed assessment and stated plan reflect my best clinical judgment today based on the combination of historical information, prior notes, and today's exam/ interactions. When time spent is documented, it refers only to time spent today by the signer, or if indicated, combined time spent today by collaborating physician/nurse practitioner. Alex Cohen MD Dec 11, 2016 14:28
--- NOTE | 2016-12-11 14:28 | MB ---
cc: MELANIE EDOUARD M.D. DATE OF CONSULTATION: 12/11/2016 REASON FOR CONSULTATION Evaluation of atrial fibrillation. HISTORY OF PRESENT ILLNESS Pedro Luis Wilson is a 71-year-old man with known esophageal cancer with extensive metastases to liver. He is admitted with profound anemia. He was noted to be in atrial fibrillation at 9:28 this morning. He was in sinus rhythm when he came in on the . A [facility] was called and he was placed in [facility]. The nurse reports that from looking at the monitor she sees that he is in atrial fibrillation RVR interspersed with atrial fibrillation RVR. His liver tests are markedly elevated making the use of amiodarone unsafe. I am initiating sotalol. The patient denies any chest pain or any complaints at this point. He has a history of receiving palliative chemotherapy for his tumor burden. PAST MEDICAL HISTORY 1. Hypertension. 2. Remote history of stroke and was on clopidogrel for this. FAMILY HISTORY His bother had a myocardial infarction. There is no cardiac history besides this. PAST SURGICAL HISTORY 1. Appendectomy. 2. Liver biopsy. 3. Port placement. SOCIAL HISTORY He is . He has three daughters. No alcohol use. MEDICATIONS Medications before admission include metoprolol 25 b.i.d. which is being continued this admission. REVIEW OF SYSTEMS Otherwise unremarkable. PHYSICAL EXAMINATION GENERAL: An obese pleasant white male who is resting comfortably in bed. He does not appear to be in acute distress. VITAL SIGNS: Blood pressure has been low and he is in atrial fibrillation with RVR. HEENT: Exam is unremarkable. NECK: No obvious JVD. CHEST: Diminished breath sounds at the bases. CARDIAC: S1, S2, regular rate and rhythm, tachycardic. ABDOMEN: Markedly protuberant. EXTREMITIES: Marked lower extremity edema up to his thighs. LABORATORY DATA He has been extensively anemic and he is also leukopenic. IMPRESSION 1. Paroxysmal atrial fibrillation with rapid ventricular response. 2. Stage IV esophageal cancer with extensive metastases to the liver. RECOMMENDATIONS I would like to use amiodarone but cannot do so because his liver tests are markedly elevated. I am going to start sotalol 80 mg every eight hours p.o. I am going to give an additional dose of digioxin. He has already got one dose of digoxin. Overall prognosis is terrible. A 2-D echo Doppler is ordered. Further therapy to be determined. MD ROCCO Corrigan/COLIN /1:55 PM /2:15 PM
[2016-12-11] MEDS ORDERED: CHLORHEXIDINE GLUCONATE 2 % 1 PACK (2 CLOTHS)(extra cloths) TOP PRN (14:30)
[2016-12-11 14:41] LABS: BICARBONATE 23.5 MEQ/L (21.0-32.0); CALCIUM-PROTEIN CORRECTED 8.8 MG/DL (8.5-10.1); MAGNESIUM 1.5 MG/DL (1.5-2.5); POTASSIUM 3.5 MEQ/L (3.5-5.1); TOTAL BILIRUBIN ADULT 1.2 MG/DL (0.2-1.0)
--- NOTE | 2016-12-11 14:57 | RADRPT ---
EXAM DATE/TIME: 12/11/2016 14:01 [facility] COMPARISON: CHEST SINGLE AP, December 09, 2016, 16:24. INDICATIONS : Short of breath MEDICAL HISTORY : Hypertension. Carcinoma, esophageal. Carcinoma, lung. A-fib, renal failure, anemia, CVA, metastat ic adenocarcinoma SURGICAL HISTORY : Appendectomy. liver biopsy ENCOUNTER: Subsequent ACUITY: 3 weeks PAIN SCORE: 0/10 LOCATION: Bilateral chest FINDINGS: Portable AP view of the chest demonstrates a normal-sized cardiac silhouette. [id number] remains p resent. Lungs are severely underinflated with bibasilar airspace opacity. No effusion or pneumothorax is visualized. Bones and soft tissues demonstrate no acute finding. CONCLUSION: Markedly underinflated examination with atelectasis at the lung bases. Noé Ortega MD on December 11, 2016 at 14:52 Board Certified Radiologist. This report was verified electronically.
--- NOTE | 2016-12-11 15:07 | MB ---
cc: TEJA TRINIDAD DATE OF CONSULTATION: 12/11/2016 DATE OF 1945 HISTORY OF PRESENT ILLNESS The patient is a 71-year-old male with past medical history of metastatic adenocarcinoma of the GI primary, iron deficiency anemia, chemotherapy related to myelosuppression, hypertension and history of CVA. The patient was admitted to [facility] on December 09 under hospitalist service for anemia and GI bleed. He was found to have hemoglobin of 7.5 with hematocrit of 21.6. In addition the patient was leukopenic with a WBC of 1.5. He received 2 units of PRBCs and his repeat hemoglobin 9.1 this morning with hematocrit of 28.4. The patient underwent an EGD and colonoscopy back in October which showed clean base ulcers in the duodenum and ulcerated mass in the distal esophagus, duodenitis and rectal polyp tubular adenoma. His esophageal biopsy showed invasive moderately differentiated adenocarcinoma. The patient underwent systemic chemotherapy. During his hospital course he was seen by GI and oncology service. The patient also was placed on broad-spectrum antibiotics in the form of cefepime and vancomycin. Chest x-ray on admission showed left basilar atelectasis. He was admitted to CIC unit and Halicat was called as the patient was found hypotensive, tachycardic and was in A fib with RVR at a rate of 140s to 150s. He was given Lopressor 5 mg IV x1 this morning along with digoxin 0.25 mg at 12 o'clock. The patient was [place] [facility] [place] and critical care medicine was consulted for critical care management. He was seen by Dr. Ayala in the ICU as well. The patient is awake, alert, in no acute respiratory distress. His current blood pressure is 100/54 and tachycardic with a pulse of 150. The patient was given normal saline 500 mL bolus at 11:00 a.m.. He denies any cardiac disease or prior history of atrial fibrillation. The patient reports abdominal bloating, however, he denies any nausea, vomiting. PAST MEDICAL HISTORY Past medical history significant for: 1. 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 2. Anemia secondary to iron-deficiency. 3. Myelosuppression secondary to chemotherapy. 4. Hypertension. 5. History of CVA. PAST SURGICAL HISTORY 1. Previous port placement. 2. Previous liver biopsy. 3. Previous appendectomy. ALLERGIES NO KNOWN DRUG ALLERGIES. FAMILY HISTORY Family history of coronary artery disease and malignancy runs in the family. SOCIAL HISTORY The patient denies any ETOH use. with three children. CURRENT MEDICATIONS 1. Neupogen. 2. Cefepime. 3. Vancomycin. 4. Lopressor. 5. Zofran p.r.n. 6. Protonix. 7. Thiamine. REVIEW OF SYSTEMS As per HPI. The rest of the review of systems is unremarkable. PHYSICAL EXAMINATION GENERAL: A 71-year male lying in bed, in no acute respiratory distress, in A fib with RVR. VITAL SIGNS: Temperature 97.2, pulse of 150, blood pressure 100/54, saturation 99%. HEENT: Atraumatic, normocephalic. Pupil equal, round and reactive to light and accommodation. Extraocular muscles intact. Conjunctivae pink. Nonicteric sclerae. Oral mucosa within normal. NECK: Supple. No JVD, adenopathy or thyromegaly. CARDIOVASCULAR: Tachycardic, irregularly, irregular. Normal S1-S2. No murmurs, rubs or gallops noted. PULMONARY: Bilateral equal air entry. No crackles or wheezing. ABDOMEN: Soft, nontender, no distention. Positive bowel sounds. EXTREMITIES: No cyanosis, clubbing. 4+ edema. NEURO: No focal sensory deficit. LABORATORY DATA WBC 3.7, hemoglobin 9.1, hematocrit 28, platelet count 226, sodium of 144, potassium 3.4, chloride 113, BUN 28, creatinine 1.0, glucose 80, calcium 8.7, corrected WBC 3.7, hemoglobin 9.1, hematocrit 28, platelet count 226. Urinalysis from December 09 showed 2 WBC, negative leukocyte esterase, negative nitrite. RADIOGRAPHIC STUDIES Ultrasound lower extremity negative for DVT. Chest x-ray from December 09 showed left basilar atelectasis. EKG Showed atrial fibrillation with rapid ventricular response, rate of 149 beats per minute. IMPRESSION 1. Respiratory insufficiency. 2. New onset A fib with RVR. 3. Metastatic adenocarcinoma of the GI tract with liver mets. 4. Stage IV esophageal cancer. 5. Leukopenia due to chemotherapy. 6. Anemia likely due to GI bleed. 7. Elevated liver enzymes secondary to liver mets. 8. History of hypertension. 9. History of CVA. RECOMMENDATIONS 1. Monitor neuro status and avoid sedatives. 2. Continue with oxygen and maintain sats above 92%. 3. Bronchodilators on a p.r.n. basis. 4. Plan to place on sotalol 120 mg p.o. b.i.d. per cardiology, monitor heart rate and blood pressure closely and maintain MAP greater than 65 mmHg. He was given Lopressor 5 mg IV x1 earlier along with digoxin 0.25 mg. 5. Monitor cardiac enzymes with troponins and will obtain 2-D echo to evaluate LV function and to rule out regional wall motion abnormalities. 6. The patient is not a candidate for anticoagulation secondary to anemia and GI bleed. 7. Monitor renal function, I&O's and electrolyte replacement per protocol. 8. The patient is on p.o. diet. Continue with Protonix 40 mg IV q. 12. GI service is following. 9. Monitor CBC, CMP and coags. The patient is status post transfusion 2 units of PRBC with repeat hemoglobin 9.1 this morning. 10. Continue with broad-spectrum antibiotics in the form of vancomycin and cefepime. Monitor for signs of infections which include fever and WBC. Follow up on blood cultures from December 09. In addition, will repeat chest x-ray now. 11. IV fluids, D5 NS at 75 mL an hour. 12. Sliding scale insulin with Accu-Cheks if needed for glycemic control. 13. GI prophylaxis with Protonix 40 mg daily and DVT prophylaxis with SCDs. The patient is not on any chemical anticoagulation prophylaxis due to anemia and requiring blood transfusions and GI bleed. 14. Will repeat labs now. 15. Will consult palliative care to assess with goals of care. 16. Further recommendations will be based on the hospital course. 17. Case discussed with Dr. Ayala. MD EKTA Bennett/IRON /1:59 PM /2:32 PM
[2016-12-11 15:24] LABS: BANDS 17 % (0-6); BASOPHILS 3 % (0-2); CORRECTED NUCLEATED RBC 4 /100 WBC (0-0); EOSINOPHILS 1 % (0-4); METAMYELOCYTES 3 % (0-1); MYELOCYTES 7 % (0-0); POLYS (SEG NEUTROPHILS) 9 % (16-70); PROMYELOCYTES 6 % (0-0); WBC DIFF SAMPLE 100
[2016-12-11 15:25] LABS: KERATOCYTES 1+ (NORMAL); PLATELET ESTIMATE SMEAR NORMAL (NORMAL); PLATELET MORPHOLOGY NORMAL (NORMAL); SCAN/DIFF FINAL DIFF MANUAL
[2016-12-11] MEDS: INSULIN NovoLIN REGULAR SUPPLEMENTAL SCALE SQ SCH ×2 (16:45→20:45)
[2016-12-11] MEDS ORDERED: GLUCAGON 1 MG/ML VIAL OTHER PRN (16:45)
[2016-12-11] MEDS: DEXT 5%-NACL 0.9% 1000 ML INJ 1,000 ML IV SCH (16:45)
[2016-12-11] MEDS ORDERED: DEXTROSE 50% IN WATER 50 ML VIAL(D50) IV PUSH PRN (16:45)
--- NOTE | 2016-12-11 17:13 | EKG ---
Date Performed: 12/11/2016 Time Performed: 09:28:56 PTAGE: 71 years EKG: ATRIAL FIBRILLATION WITH RAPID VENTRICULAR RESPONSE ST DEVIATION AND MODERATE T-WAVE ABNORM ALITY, CONSIDER LATERAL ISCHEMIA ABNORMAL ECG Compared to PREVIOUS TRACING , atrial fibrilllation with rapid ventricular response is now present. S T-T abnormalities are now more prominent. PREVIOUS TRACIN12/09/2016 16.33 DOCTOR: Parish Díaz Interpretating Date/Time 12/11/2016 17:11:46
[2016-12-11] MEDS ORDERED: SODIUM CHLOR 0.9% 1000 ML INJ 1,000 ML IV ONE (17:15)
--- NOTE | 2016-12-11 19:01 | EC ---
Study Study Date:12/11/2016 STUDY CONCLUSIONS SUMMARY - Left ventricle: The cavity size was normal. Wall thickness was normal. Systolic function was normal. The estimated ejection fraction was in the range of 60% to 65%. Wall motion was normal; there were no regional wall motion abnormalities. - Pulmonary arteries: PA peak pressure: 43mm Hg (S). If LV function is below 40, please consider prescribing an ACEI or ARB or document rationale for non-use. PROCEDURE DATA STUDY STATUS: Elective. Procedure: Transthoracic echocardiography. Image quality was good. Scanning was performed from the parasternal, apical, and subcostal acoustic windows. Study completion: The patient tolerated the procedure well. Transthoracic echocardiography. M-mode, complete 2D, complete spectral Doppler, and color Doppler. Patient status: Inpatient. CARDIAC ANATOMY LEFT VENTRICLE: The cavity size was normal. Wall thickness was normal. Systolic function was normal. The estimated ejection fraction was in the range of 60% to 65%. Wall motion was normal; there were no regional wall motion abnormalities. AORTIC VALVE: Trileaflet; mildly thickened, mildly calcified leaflets. Doppler: Transvalvular velocity was within the normal range. There was no stenosis. No regurgitation. Peak gradient: 14mm Hg (S). AORTA: Aortic root: The aortic root was normal in size. MITRAL VALVE: Structurally normal valve. Doppler: Transvalvular velocity was within the normal range. There was no evidence for stenosis. No regurgitation. Peak gradient: 4mm Hg (D). LEFT ATRIUM: The atrium was normal in size. RIGHT VENTRICLE: The cavity size was normal. Wall thickness was normal. PULMONIC VALVE: Doppler: Transvalvular velocity was within the normal range. There was no evidence for stenosis. No regurgitation. TRICUSPID VALVE: Structurally normal valve. Doppler: Transvalvular velocity was within the normal range. No regurgitation. PULMONARY ARTERY: The main pulmonary artery was normal-sized. Systolic pressure was within the normal range. RIGHT ATRIUM: The atrium was normal in size. PERICARDIUM: There was no pericardial effusion. SYSTEMIC VEINS: Inferior vena cava: The vessel was normal in size. BASIC MEASUREMENTS ADULT Normal Left ventricle LV internal dimension, ED, chordal level, *40.3 mm 43-52 PLAX LV internal dimension, ES, chordal level, 28.4 mm 23-38 PLAX Fractional shortening, chordal level, PLAX 30 % >29 LV posterior wall thickness, ED 6.54 mm IVS/LVPW ratio, ED *1.5 <1.3 Ventricular septum Septal thickness, ED 9.81 mm Left atrium Anterior-posterior dimension 31 mm Right ventricle RV internal dimension, ED, PLAX 20.6 mm 19-38 DOPPLER MEASUREMENTS ADULT Normal Main pulmonary artery Pressure, S *43 mm Hg =30 Aortic valve Peak velocity, S 187 cm/s Peak gradient, S 14 mm Hg Mitral valve Peak E-wave velocity 101 cm/s Peak gradient, D 4 mm Hg Tricuspid valve Regurgitant peak velocity 309 cm/s Peak RV-RA gradient, S 38 mm Hg Maximal regurgitant velocity 309 cm/s Systemic veins Estimated CVP 5 mm Hg Right ventricle RV pressure, S *43 mm Hg <30 LEGEND: Mean values are shown as u=mean value. Asterisk (*) glass values outside specified normal range. Prepared and signed by Jacky Ayala [id number]
[2016-12-11] MEDS: VANCOMYCIN INJ 2,500 MG in SODIUM CHLORID 0.9% 500 ML INJ 500 ML IV SCH (21:00)
[2016-12-11] MEDS: MIRTAZAPINE 15 MG TAB PO SCH (22:00)
[2016-12-12] VITALS: BP 85/52; PULSE 74; RESP 20; TEMP 97.8; O2SAT 95
[2016-12-12] MEDS: INSULIN NovoLIN REGULAR SUPPLEMENTAL SCALE SQ SCH ×3 (00:45→08:45)
[2016-12-12 02:00] VITALS: PULSE 76
[2016-12-12 04:00] VITALS: BP 84/52; PULSE 74; RESP 18; TEMP 98; O2SAT 98
[2016-12-12] MEDS ORDERED: CHLORHEXIDINE GLUCONATE 2 % 1 PACK (2 CLOTHS)(taper/protocol) TOP SCH (04:00)
[2016-12-12] MEDS: CEFEPIME INJ 2,000 MG in SODIUM CHLORIDE 0.9% INJ 100 ML IV SCH (05:22)
[2016-12-12] MEDS: DEXT 5%-NACL 0.9% 1000 ML INJ 1,000 ML IV SCH (05:23)
[2016-12-12] MEDS: SOTALOL HCL 80 MG TAB PO SCH (05:23)
[2016-12-12] MEDS: SODIUM CHLOR 0.9% 1000 ML INJ 1,000 ML IV SCH (05:24)
[2016-12-12 06:00] VITALS: PULSE 72; PULSE 74
[2016-12-12 08:00] VITALS: BP 92/54; PULSE 74; RESP 28; TEMP 97.7; O2SAT 95
--- NOTE | 2016-12-12 08:37 | HHI.CCPN ---
Subjective Remarks/Hospital Course The patient is a 71-year-old male with past medical history of metastatic adenocarcinoma of the GI primary, iron deficiency anemia, chemotherapy related to myelosuppression, hypertension and history of CVA. The patient was admitted to [facility] on December 09 under hospitalist service for anemia and GI bleed. He was found to have hemoglobin of 7.5 with hematocrit of 21.6. In addition the patient was leukopenic with a WBC of 1.5. He received 2 units of PRBCs and his repeat hemoglobin 9.1 this morning with hematocrit of 28.4. The patient underwent an EGD and colonoscopy back in October which showed cleanbase ulcers in the duodenum and ulcerated mass in the distal esophagus, duodenitis and rectal polyp tubular adenoma. His esophageal biopsy showed invasive moderately differentiated adenocarcinoma. The patient underwent systemic chemotherapy. During his hospital course he was seen by GI and oncology service. The patient also was placed on broad-spectrum antibiotics in the form of cefepime and vancomycin. Chest x-ray on admission showed left basilar atelectasis. He was admitted to CIC unit and Christellet was called as the patient was found hypotensive, tachycardic and was in A fib with RVR at a rate of 140s to 150s. He was given Lopressor 5 mg IV x1 this morning along with digoxin 0.25 mg at 12 o'clock. The patient was subsequently transferred to [facility] [place] and critical care medicine was consulted for critical care management. He was seen by Dr. Ayala in the ICU as well. The patient is awake, alert, in no acute respiratory distress. His current blood pressure is 100/54 and tachycardic with a pulse of 150. The patient was given normal saline 500 mL bolus at 11:00 a.m.. He denies any cardiac disease or prior history of atrial fibrillation. The patient reports abdominal bloating, however, he denies any nausea, vomiting. 12/12 Patient is on room air oxygen. Denies any CP/SOB. Afebrile for possible transfer to hospice today. Objective Vital Signs Date Time Temp Pulse Resp B/P Pulse Ox O2 Delivery O2 Flow Rate FiO2 12/12/16 06:00 74 12/12/16 04:00 98.0 18 84/52 98 12/11/16 20:34 21 12/11/16 14:52 Nasal Cannula Intake and Output 12/11/16 12/11/16 12/12/16 08:00 16:00 00:00 Intake Total 0 ml 920 ml Output Total 400 ml 500 ml Balance -400 ml 420 ml Result Diagram: 12/11/16 1405 12/11/16 1316 Other Results Laboratory Tests Test 12/11/16 12/11/16 12/11/16 13:16 14:05 14:30 Sodium Level 144 MEQ/L Potassium Level 3.5 MEQ/L Chloride Level 112 MEQ/L Carbon Dioxide Level 23.5 MEQ/L Anion Gap 9 MEQ/L Blood Urea Nitrogen 26 MG/DL Creatinine 1.12 MG/DL Estimat Glomerular Filtration 64 ML/MIN Rate Random Glucose 58 MG/DL Calcium Level 7.4 MG/DL Protein Corrected Calcium 8.8 MG/DL Phosphorus Level 2.1 MG/DL Magnesium Level 1.5 MG/DL Total Bilirubin 1.2 MG/DL Aspartate Amino Transf 164 U/L (AST/SGOT) Alanine Aminotransferase 116 U/L (ALT/SGPT) Alkaline Phosphatase 273 U/L Total Creatine Kinase 475 U/L Creatine Kinase MB 7.8 NG/ML Creatine Kinase MB % 1.6 % Troponin I 0.08 NG/ML Total Protein 4.7 GM/DL Albumin 1.3 GM/DL White Blood Count 4.8 TH/MM3 Red Blood Count 3.14 MIL/MM3 Hemoglobin 10.0 GM/DL Hematocrit 29.8 % Mean Corpuscular Volume 95.0 FL Mean Corpuscular Hemoglobin 32.0 PG Mean Corpuscular Hemoglobin 33.7 % Concent Red Cell Distribution Width 17.8 % Platelet Count 390 TH/MM3 Mean Platelet Volume 8.4 FL Neutrophils (%) (Auto) % Lymphocytes (%) (Auto) % Monocytes (%) (Auto) % Eosinophils (%) (Auto) % Basophils (%) (Auto) % Neutrophils # (Auto) TH/MM3 Lymphocytes # (Auto) TH/MM3 Monocytes # (Auto) TH/MM3 Eosinophils # (Auto) TH/MM3 Basophils # (Auto) TH/MM3 CBC Comment AUTO DIFF Differential Total Cells 100 Counted Neutrophils % (Manual) 9 % Band Neutrophils % 17 % Lymphocytes % 40 % Monocytes % 14 % Eosinophils % 1 % Basophils % 3 % Neutrophils # (Manual) 2.0 TH/MM3 Metamyelocytes 3 % Myelocytes 7 % Promyelocytes 6 % Nucleated Red Blood Cells 4 /100 WBC Differential Comment FINAL DIFF MANUAL Platelet Estimate NORMAL Platelet Morphology Comment NORMAL Keratocytes 1+ Prothrombin Time 16.9 SEC Prothromb Time International 1.5 RATIO Ratio Nasal Screen MRSA (PCR) NEGATIVE Imaging Last Impressions Chest X-Ray 12/11/16 0000 Signed Impressions: Service Date/Time: Sunday, December 11, 2016 14:01 - CONCLUSION: Markedly underinflated examination with atelectasis at the lung bases. Noé Ortega MD Lower Extremity Ultrasound 12/10/16 0000 Signed Impressions: Service Date/Time: Saturday, December 10, 2016 16:48 - CONCLUSION: Normal examination. Riley Bianchi MD Objective Remarks GENERAL: Patient is lying in bed in NAD SKIN: Warm and dry. HEAD: Normocephalic. EYES: No scleral icterus. No injection or drainage. NECK: Supple, trachea midline. No JVD or lymphadenopathy. CARDIOVASCULAR: Regular rate and rhythm without murmurs, gallops, or rubs. RESPIRATORY: Breath sounds equal bilaterally. No accessory muscle use. GASTROINTESTINAL: Abdomen soft, non-tender, nondistended. MUSCULOSKELETAL: No cyanosis, or edema. Neuro: Awake and alert. A/P Assessment and Plan 1. Respiratory insufficiency. 2. New onset A fib with RVR. 3. Metastatic adenocarcinoma of the GI tract with liver mets. 4. Stage IV esophageal cancer. 5. Leukopenia due to chemotherapy. 6. Anemia likely due to GI bleed. 7. Elevated liver enzymes secondary to liver mets. 8. History of hypertension. 9. History of CVA. Plan: Neuro: Awake and alert. Pulm: Oxygen PRN maintain sats above 92%. Bronchodilators PRN CV: Monitor HR and BP keep MAP>65mmHg On sotalol 80mg Q8 Cards- Dr. Ayala Echo showed EF 60-65% Not a candidate for anticoagulation secondary to anemia and GI bleed. : Monitor renal function, I&O's and electrolyte replacement per protocol. On D5NS@100ml/hr GI: On Protonix 40 mg IV q. 12. GI service is following. Hem: Monitor CBC, CMP and coags. s/p transfusion 2 units PRBC On Neupogen, Heme-Onc is following ID: Continue with abx(vancomycin and cefepime) Monitor for signs of infections( fever and WBC). Follow up on blood cultures Endo: SSI with Accu-Cheks if needed for glycemic control. GI prophylaxis with Protonix 40 mg daily and DVT prophylaxis with SCDs. Palliative care is following. For possible transfer to Hospice today Level 2 David Alcaraz MD Dec 12, 2016 08:37
[2016-12-12] MEDS ORDERED: MAGNESIUM SULFATE INJ 2 GM in SODIUM CHLORIDE 0.9% INJ 96 ML IV PRN (08:45)
[2016-12-12] MEDS ORDERED: POTASSIUM CHLOR 40 MEQ PREMIX 100 ML IV PRN ×2 (08:45)
[2016-12-12] MEDS ORDERED: POTASSIUM PHOSPHATE MONOBASIC 500 MG TAB PO/TUBE PRN (08:45)
[2016-12-12] MEDS ORDERED: POTASSIUM CHLOR 20 MEQ PREMIX 100 ML IV PRN ×2 (08:45)
[2016-12-12] MEDS ORDERED: POTASSIUM CL 40 MEQ/30 ML LIQ UDC PO/TUBE PRN ×2 (08:45)
[2016-12-12] MEDS ORDERED: POTASSIUM PHOSPHATE MONOBASIC 500 MG TAB PO PRN (08:45)
[2016-12-12] MEDS ORDERED: MAGNESIUM OXIDE 400 MG TAB PO PRN (08:45)
[2016-12-12] MEDS ORDERED: MAGNESIUM SULFATE INJ 4 GM in SODIUM CHLORIDE 0.9% INJ 92 ML IV PRN (08:45)
[2016-12-12] MEDS ORDERED: POTASSIUM PHOSPHATE INJ 30 MMOL in SODIUM CHLOR 0.9% 250 ML INJ 250 ML IV PRN (08:45)
[2016-12-12] MEDS ORDERED: SODIUM PHOSPHATE INJ 30 MMOL in SODIUM CHLOR 0.9% 250 ML INJ 240 ML IV PRN (08:45)
[2016-12-12] MEDS: PANTOPRAZOLE SODIUM 40 MG VIAL IV PUSH SCH (09:00)
[2016-12-12] MEDS: SODIUM CHLORIDE 0.9% FLUSH 5 ML FLUSH FLUSH SCH (09:00)
[2016-12-12] MEDS: FOLIC ACID 1 MG TAB PO SCH (09:00)
[2016-12-12] MEDS ORDERED: SODIUM CHLOR 0.9% 1000 ML INJ 1,000 ML IV ONE (09:30)
--- NOTE | 2016-12-12 09:34 | HHI.GIFU ---
Subjective Remarks Resting in bed. He shouldn't has decided on comfort measures only and does not wish to pursue any invasive procedures or aggressive treatment. Hospice has been consulted and is scheduled to meet with patient this am. Objective Vitals I&O Vital Signs Date Time Temp Pulse Resp B/P Pulse Ox O2 Delivery O2 Flow Rate FiO2 12/12/16 06:00 74 12/12/16 04:00 98.0 74 18 84/52 98 12/12/16 04:00 74 12/12/16 02:00 76 12/12/16 00:00 74 12/12/16 00:00 97.8 74 20 85/52 95 12/11/16 22:00 80 12/11/16 20:34 99 21 12/11/16 20:00 97.6 83 18 91/53 100 12/11/16 20:00 83 12/11/16 14:52 94 Nasal Cannula 12/11/16 13:15 148 12/11/16 12:50 60/47 12/11/16 12:05 130 12/11/16 11:14 67 20 97/31 99 12/11/16 11:14 67 12/11/16 10:38 119 I/O 12/11/16 12/11/16 12/11/16 12/12/16 12/12/16 12/12/16 07:00 15:00 23:00 07:00 15:00 23:00 Intake Total 0 ml 920 ml 827 ml Output Total 400 ml 500 ml 300 ml Balance -400 ml 420 ml 527 ml Intake Oral 0 ml 120 ml 0 ml IV Total 800 ml 827 ml Output Urine Total 400 ml 500 ml 300 ml # Bowel Movements 0 0 0 Laboratory Laboratory Tests Test 12/11/16 12/11/16 12/11/16 13:16 14:05 14:30 Sodium Level 144 Potassium Level 3.5 Chloride Level 112 Carbon Dioxide Level 23.5 Anion Gap 9 Blood Urea Nitrogen 26 Creatinine 1.12 Estimat Glomerular Filtration 64 Rate Random Glucose 58 Calcium Level 7.4 Protein Corrected Calcium 8.8 Phosphorus Level 2.1 Magnesium Level 1.5 Total Bilirubin 1.2 Aspartate Amino Transf 164 (AST/SGOT) Alanine Aminotransferase 116 (ALT/SGPT) Alkaline Phosphatase 273 Total Creatine Kinase 475 Creatine Kinase MB 7.8 Creatine Kinase MB % 1.6 Troponin I 0.08 Total Protein 4.7 Albumin 1.3 White Blood Count 4.8 Red Blood Count 3.14 Hemoglobin 10.0 Hematocrit 29.8 Mean Corpuscular Volume 95.0 Mean Corpuscular Hemoglobin 32.0 Mean Corpuscular Hemoglobin 33.7 Concent Red Cell Distribution Width 17.8 Platelet Count 390 Mean Platelet Volume 8.4 Neutrophils (%) (Auto) Lymphocytes (%) (Auto) Monocytes (%) (Auto) Eosinophils (%) (Auto) Basophils (%) (Auto) Neutrophils # (Auto) Lymphocytes # (Auto) Monocytes # (Auto) Eosinophils # (Auto) Basophils # (Auto) CBC Comment AUTO DIFF Differential Total Cells 100 Counted Neutrophils % (Manual) 9 Band Neutrophils % 17 Lymphocytes % 40 Monocytes % 14 Eosinophils % 1 Basophils % 3 Neutrophils # (Manual) 2.0 Metamyelocytes 3 Myelocytes 7 Promyelocytes 6 Nucleated Red Blood Cells 4 Differential Comment FINAL DIFF MANUAL Platelet Estimate NORMAL Platelet Morphology Comment NORMAL Keratocytes 1+ Prothrombin Time 16.9 Prothromb Time International 1.5 Ratio Nasal Screen MRSA (PCR) NEGATIVE Date/Time Procedure Status Source Growth 12/09/16 16:20 Aerobic Blood Culture - Preliminary Resulted Blood Peripheral NO GROWTH IN 2 DAYS 12/09/16 16:20 Anaerobic Blood Culture - Preliminary Resulted Blood Peripheral NO GROWTH IN 2 DAYS Imaging Last Impressions Chest X-Ray 12/11/16 0000 Signed Impressions: Service Date/Time: Sunday, December 11, 2016 14:01 - CONCLUSION: Markedly underinflated examination with atelectasis at the lung bases. Noé Ortega MD Lower Extremity Ultrasound 12/10/16 0000 Signed Impressions: Service Date/Time: Saturday, December 10, 2016 16:48 - CONCLUSION: Normal examination. Riley Bianchi MD Physical Exam HEENT: Normocephalic; atraumatic; no jaundice. CHEST: Resp shallow/even, diminished CARDIAC: Irregular ABDOMEN: Soft, nondistended, nontender; no hepatosplenomegaly; bowel sounds are present in all four quadrants. EXTREMITIES: 4+ BLE edema. SKIN: Multiple ecchymotic areas [employer]PER[employer] D[employer] DE[employer]MENT: Lethargic and oriented times three. Assessment and Plan Plan ASSESSMENT: - Anemia with Hemoccult positive stool. He does have hx of duodenal ulcers, ulcerated esophageal mass. S/P 2 units PRBC. HH 10.0/29.8. No obvious active bleeding. EGD was cancelled yesterday for A-fib with RVR. EGD was planned for today, but the patient and his family have decided on comfort measures only and hospice has been consulted. - Anemia, acute blood loss. S/P 2 units PRBC. HH 10.0/29.8 - Leukopenia, likely secondary to chemotherapy. - Elevated LFTs. Pt with known extensive metastatic disease. - Stage IV Esophageal Cancer. PT was diagnosed with metastatic malignancy of GI primary with extensive liver mets by liver biopsy at [facility]. He underwent GI workup while at this facility in October and was evaluated with EGD/Colonoscopy (10/30/16)-----> clean base ulcers in duodenum, gastritis antrum, ulcerated mass distal esophagus, also a small pedunculated ulcerate polypoid mass above one biopsy, very friable nearly obstructing, pediatric upper scope used, retroflexed views revealed a hiatal hernia, diverticulosis, hemorrhoids. Duodenal mucosa with peptic duodenitis, antral mucosa with focal mild active chronic gastritis, mike stain is positive for a small number of organisms suspicious for Helicobacter, rectal polyp tubular adenoma, esophageal biopsy with invasive moderately differentiated adenocarcinoma, aggregates of budding yeast and pseudohyphae, consistent with aaron in necrotic debris. Palliative systemic therapy with modified dose of FOLFOX. He denies any difficulty swallowing and is eating solids such as sandwiches. - BLE Edema. Per primary - Neutropenic fevers, sepsis. Abx and workup per primary - Hx of H. Pylori, unclear if this was treated. We can check for this at time of EGD. - A-fib with RVR, per primary PLAN: - Diet as tolerated - PPI - Pt/family has decided on comfort measures only and Hospice has been consulted - GI will sign off, please reconsult if needed - Pt seen and examined by Dr. Hoyos and myself and this note is written on his behalf Stephanie Root Dec 12, 2016 09:34
--- NOTE | 2016-12-12 10:12 | PD.ONC.PN ---
Subjective Subjective Remarks Afebrile overnight. Patient and ex- tell me when I walk in the room they have decided on hospice and want nothing else ordered on the patient. They are waiting to speak with hospice. They spoke with palliative care last night. Objective Data Date Time Temp Pulse Resp B/P Pulse Ox O2 Delivery O2 Flow Rate FiO2 12/12/16 08:00 97.7 74 28 92/54 95 12/12/16 06:00 74 12/12/16 04:00 98.0 74 18 84/52 98 12/12/16 04:00 74 12/12/16 02:00 76 12/12/16 00:00 74 12/12/16 00:00 97.8 74 20 85/52 95 12/11/16 22:00 80 12/11/16 20:34 99 21 12/11/16 20:00 97.6 83 18 91/53 100 12/11/16 20:00 83 12/11/16 14:52 94 Nasal Cannula 12/11/16 13:15 148 12/11/16 12:50 60/47 12/11/16 12:05 130 12/11/16 11:14 67 20 97/31 99 12/11/16 11:14 67 12/11/16 10:38 119 Result Diagram: 12/11/16 1405 12/11/16 1316 Laboratory Results Laboratory Tests Test 12/11/16 12/11/16 12/11/16 13:16 14:05 14:30 Sodium Level 144 MEQ/L Potassium Level 3.5 MEQ/L Chloride Level 112 MEQ/L Carbon Dioxide Level 23.5 MEQ/L Anion Gap 9 MEQ/L Blood Urea Nitrogen 26 MG/DL Creatinine 1.12 MG/DL Estimat Glomerular Filtration 64 ML/MIN Rate Random Glucose 58 MG/DL Calcium Level 7.4 MG/DL Protein Corrected Calcium 8.8 MG/DL Phosphorus Level 2.1 MG/DL Magnesium Level 1.5 MG/DL Total Bilirubin 1.2 MG/DL Aspartate Amino Transf 164 U/L (AST/SGOT) Alanine Aminotransferase 116 U/L (ALT/SGPT) Alkaline Phosphatase 273 U/L Total Creatine Kinase 475 U/L Creatine Kinase MB 7.8 NG/ML Creatine Kinase MB % 1.6 % Troponin I 0.08 NG/ML Total Protein 4.7 GM/DL Albumin 1.3 GM/DL White Blood Count 4.8 TH/MM3 Red Blood Count 3.14 MIL/MM3 Hemoglobin 10.0 GM/DL Hematocrit 29.8 % Mean Corpuscular Volume 95.0 FL Mean Corpuscular Hemoglobin 32.0 PG Mean Corpuscular Hemoglobin 33.7 % Concent Red Cell Distribution Width 17.8 % Platelet Count 390 TH/MM3 Mean Platelet Volume 8.4 FL Neutrophils (%) (Auto) % Lymphocytes (%) (Auto) % Monocytes (%) (Auto) % Eosinophils (%) (Auto) % Basophils (%) (Auto) % Neutrophils # (Auto) TH/MM3 Lymphocytes # (Auto) TH/MM3 Monocytes # (Auto) TH/MM3 Eosinophils # (Auto) TH/MM3 Basophils # (Auto) TH/MM3 CBC Comment AUTO DIFF Differential Total Cells 100 Counted Neutrophils % (Manual) 9 % Band Neutrophils % 17 % Lymphocytes % 40 % Monocytes % 14 % Eosinophils % 1 % Basophils % 3 % Neutrophils # (Manual) 2.0 TH/MM3 Metamyelocytes 3 % Myelocytes 7 % Promyelocytes 6 % Nucleated Red Blood Cells 4 /100 WBC Differential Comment FINAL DIFF MANUAL Platelet Estimate NORMAL Platelet Morphology Comment NORMAL Keratocytes 1+ Prothrombin Time 16.9 SEC Prothromb Time International 1.5 RATIO Ratio Nasal Screen MRSA (PCR) NEGATIVE Culture Results Microbiology Date/Time Procedure Status Source Growth 12/09/16 16:15 Aerobic Blood Culture - Preliminary Resulted Blood Peripheral NO GROWTH IN 2 DAYS 12/09/16 16:15 Anaerobic Blood Culture - Preliminary Resulted Blood Peripheral NO GROWTH IN 2 DAYS 12/09/16 16:20 Aerobic Blood Culture - Preliminary Resulted Blood Peripheral NO GROWTH IN 2 DAYS 12/09/16 16:20 Anaerobic Blood Culture - Preliminary Resulted Blood Peripheral NO GROWTH IN 2 DAYS Administered Medications Medications (Trade) Dose Ordered Sig/Yobani Route PRN Reason Start Time Stop Time Status Last Admin Dose Admin IV Flush (NS Flush) 2 ml BID FLUSH 12/09/16 21:00 12/11/16 21:58 Diphenhydramine HCl (Benadryl) 25 mg HS PRN PO INSOMNIA 12/09/16 18:15 12/10/16 09:34 Mirtazapine (Remeron) 15 mg HS PO 12/09/16 21:00 12/11/16 22:00 Acetaminophen (Tylenol) 650 mg Q6H PRN PO headache/fever/pain1-2 3/4/17 18:15 12/10/16 21:49 Oxycodone HCl 5 mg 5 mg Q4H PRN PO PAIN SCALE 3 TO 10 12/09/16 18:15 12/11/16 04:31 Cefepime HCl 2000 mg/Sodium Chloride 100 ml @ 200 mls/hr Q8HR IV 12/09/16 22:00 12/12/16 05:22 Vancomycin HCl/ Sodium Chloride (Vancomycin Inj/ NS 500 ml Inj) 525 ml @ 250 mls/hr Q24H IV 12/09/16 21:00 12/10/16 22:37 Pantoprazole Sodium (Protonix Inj) 40 mg Q12H IV PUSH 12/10/16 09:00 12/11/16 21:59 Filgrastim (Neupogen Inj) 300 mcg DAILY@14 SQ 12/11/16 14:00 12/11/16 17:34 Folic Acid (Folate) 1 mg DAILY PO 12/10/16 11:00 12/10/16 12:05 Sotalol HCl (Betapace) 80 mg Q8HR PO 12/11/16 14:00 12/11/16 14:19 Chlorhexidine Gluconate 3 pack 3 pack DAILY@04 TOP 12/12/16 04:00 12/16/16 04:01 12/12/16 04:00 Dextrose/Sodium Chloride (D5W-NS 1000 ml Inj) 1,000 ml @ 75 mls/hr [id number] IV 12/11/16 16:45 12/12/16 05:23 Objective Remarks GENERAL: Chronically ill appearing male, lying supine in bed, with ex- at bedside. SKIN: Warm and dry. HEAD: Normocephalic. EYES: No injection or drainage. NECK: Supple, trachea midline. LYMPHATIC: No adenopathy. CARDIOVASCULAR: IRR RESPIRATORY: anterior lanier with occasional rhonchi. GASTROINTESTINAL: Abdomen soft, non-tender, nondistended. EXTREMITIES: No cyanosis. 3+ pitting edema in BLE. NEUROLOGICAL: awake and alert, normal speech. Assessment/Plan Problem List: (1) Metastatic adenocarcinoma of unknown origin Status: Acute Plan: --diagnosed in October 2016 --status post two cycles of modified dose FOLFOX with the most recent cycle delivered on 11/27/2016. (2) Anemia Status: Acute Plan: --likely due to GIB --GI following and plans for EGD --s/p 2 units pRBC (3) Leukopenia due to antineoplastic chemotherapy Status: Acute Plan: --on Neupogen daily. --monitor for fevers --on empiric antibiotics (4) Atrial fibrillation Status: Acute Plan: --cardiology following --rate controlled. Assessment 71y/o male with metastatic adenocarcinoma of GI primary admitted with progressive anemia and leukopenia. h/o Anemia related to iron deficiency. Chemotherapy related to myelosuppression. History of hypertension. Reported history of CVA. Plan 1. await hospice consult 2. continue supportive care Attending Statement The exam, history, and the medical decision-making described in the above note were completed with the assistance of the mid-level provider. I reviewed and agree with the findings presented. I attest that I had a [id number] encounter with the patient on the same day, and personally performed and documented my assessment and findings in the medical record. Patient and family would like to pursue hospice. continue comfort measures Problem Qualifiers (1) Anemia: Sofya Thomas Dec 12, 2016 10:12 Krishna Pruitt MD Dec 12, 2016 20:17
--- NOTE | 2016-12-12 15:54 | EKG ---
Date Performed: 12/11/2016 Time Performed: 12:02:16 PTAGE: 71 years EKG: Atrial fibrillation with rapid ventricular response Extensive T wave changes are nonspecifi c Abnormal ECG PREVIOUS TRACING : 12/11/2016 09.28 No significant change from previous tracing noted. DOCTOR: Luis E Cabrera Interpretating Date/Time 12/12/2016 15:53:29
[2016-12-12] MEDS ORDERED: PHARMACY ORDERED LAB XX ONE (20:45)
--- NOTE | 2017-01-03 08:23 | MD ---
cc: TEJA TRINIDAD ADMISSION DATE: 12/09/2016 DISCHARGE DATE: 12/12/2016 DATE OF 1945 BRIEF HISTORY/HOSPITAL COURSE The patient is a 71-year-old with history of metastatic adenocarcinoma of the GI, iron-deficiency anemia, myelosuppression secondary to chemotherapy, hypertension, history of CVA. He was admitted to [facility] on December 09 under hospitalist service for anemia and GI bleed. He was given 2 units of PRBCs for hemoglobin of 7.5 with a repeat hemoglobin level of 9.1 and hematocrit 28.4. The patient underwent EGD and colonoscopy back in October which showed clean base ulcers in the duodenum and ulcerated mass in the distal esophagus, duodenitis and rectal polyp, tubular adenoma. His esophageal biopsy showed invasive moderately differentiated adenocarcinoma and he underwent systemic chemotherapy. The patient was being followed by GI and oncology service. He was placed on broad-spectrum antibiotics and chest x-ray on admission showed left basilar atelectasis. The patient was found hypotensive, tachycardic and was in atrial fibrillation with RVR. A Halicat was called and the patient was transferred to [facility] where critical care medicine was consulted for critical care management. The patient was seen by cardiology service, Dr. Ayala and was started on sotalol at 80 mg q. 8. His echocardiogram showed EF of 60-65%. The patient was not a candidate for anticoagulation secondary to underlying anemia and GI bleed. He was placed on IV fluids in the form of D5 NS at 100 mL an hour. The patient also was on Neupogen per oncology service due to his underlying neutropenia. He was on sliding scale insulin for glycemic control. Palliative care was consulted and the patient was transferred to hospice on December 12. MD EKTA Bennett/IRON /12:18 PM /8:17 AM
== END 2016-12-12 13:00 | disposition hospice, inpatient (51) | DRG 377 ==
LOC: NEPA 15:45 → NEDA 17:56 → HOCB 20:23 → HCIS 12-11 09:59 → HIME 12-11 13:40
PROVIDERS: ADMIT Internal Medicine Critical Care Medicine; ATTEND Internal Medicine Critical Care Medicine
PROC: 30233N1 Transfusion of Nonautologous Red Blood Cells into Peripheral Vein, Percutaneous Approach (ICD-10-PCS; principal; 2016-12-10)
DX: K92.2 Gastrointestinal hemorrhage, unspecified (principal); A41.9 Sepsis, unspecified organism; I95.9 Hypotension, unspecified; E46 Unspecified protein-calorie malnutrition; C15.9 Malignant neoplasm of esophagus, unspecified; D70.1 Agranulocytosis secondary to cancer chemotherapy; R06.89 Other abnormalities of breathing; C78.7 Secondary malignant neoplasm of liver and intrahepatic bile duct; Z68.41 Body mass index [BMI] 40.0-44.9, adult; D62 Acute posthemorrhagic anemia; I48.91 Unspecified atrial fibrillation; D50.0 Iron deficiency anemia secondary to blood loss (chronic); I10 Essential (primary) hypertension; K12.30 Oral mucositis (ulcerative), unspecified; T45.1X5A Adverse effect of antineoplastic and immunosuppressive drugs, initial encounter; R50.81 Fever presenting with conditions classified elsewhere; Z86.73 Personal history of transient ischemic attack (TIA), and cerebral infarction without residual deficits; Z51.5 Encounter for palliative care; Z66 Do not resuscitate; Z87.11 Personal history of peptic ulcer disease; Z72.0 Tobacco use; E66.9 Obesity, unspecified
CPT/HCPCS: 36430; 71010; 80048; 80053; 81001; 82550; 82552; 83605; 83735; 84100; 84155; 84484; 85007; 85014; 85018; 85027; 85610; 85730; 86850; 86900; 86901; 86920; 87040; 87641; 93005; 93306; 93970; 96361; 96374; C9113; J0692; J1160; J1442; J3370; J7030; J7040; J7042; P9016